=== PATIENT | male | born 1980 | race Caucasian/White ===

== ENCOUNTER 2016-07-29 09:19 | Emergency (ER) | payer BC ==
[~2016-07-29] VITALS: Ht 167.6 cm; Wt 84.0 kg
[~2016-07-29 09:19] MED LIST: ALBUAER2 INH; ASPI325T45 PO; ATV/1 PO; MOME200A INH; OXYC-57 PO; SERT50TA PO
[2016-07-29 09:24] VITALS: TEMP 36.8; Ht 167.6 cm; Wt 84.0 kg
[2016-07-29] MEDS ORDERED: KETOROLAC TROMETHAMINE 30 MG/ML VIAL IV STA (09:49)
[2016-07-29] MEDS ORDERED: SODIUM CHLORIDE 0.9% 1000ML 1,000 ML IV STA (09:49)
[2016-07-29] MEDS ORDERED: ACET-1311 PO (09:55)
[2016-07-29] MEDS ORDERED: WLLSR/150 PO (09:55)
[2016-07-29] MEDS ORDERED: IBUP-1450 PO (09:55)
[2016-07-29] MEDS ORDERED: VNTHFA/IN INH (09:57)
[2016-07-29 10:26] LABS: HEMATOCRIT 40.8 % (42-52); MEAN CELL VOLUME 87.6 fL (80-100); MEAN CORPUSCULAR HEMOGLOBIN 31.8 pg (25-34); MEAN CORPUSCULAR HGB CONC 36.3 g/dl (32-36); MEAN PLATELET VOLUME 8.7 fL (7.4-10.4); PLATELET COUNT 266 K/uL (130-400); RED BLOOD COUNT 4.66 M/uL (4.7-6.1); WHITE BLOOD COUNT 8.97 K/uL (4.8-10.8)
[2016-07-29 10:41] LABS: ALT/SGPT 26 U/L (12-78); AST/SGOT 11 U/L (15-37); BLOOD UREA NITROGEN 10 mg/dl (7-18); BUN/CREATININE RATIO 9.8 (10-20); CALCIUM 8.6 mg/dl (8.5-10.1); CARBON DIOXIDE 30 mmol/L (21-32); CHLORIDE 105 mmol/L (98-107); GLUCOSE 99 mg/dl (70-99); POTASSIUM 3.5 mmol/L (3.5-5.1); SODIUM 142 mmol/L (136-145)
[2016-07-29 10:46] LABS: ALKALINE PHOSPHATASE 122 U/L (45-117)
--- NOTE | 2016-07-29 11:11 | EMERGENCY ROOM VISIT NOTE ---
History Report prepared by Nenita: Susi Mccartney Under the Supervision of: Serjio SarmientoO. First contact with patient: 09:36 Chief Complaint: ILLNESS Stated Complaint: LOW FEVER, N, BLISTERS AROUND/IN MOUTH,FACIAL PAIN History of Present Illness The patient is a 36 year old male who presents to the Emergency Room with complaints of a persistent illness that began prior to arrival. He currently rates his discomfort as a 6/10 in severity. The patient states that he recently in [place] and shaved while there. He states that Friday he woke up with aches and a fever. The patient additionally noted left neck lymphadenopathy. He states that he noticed bumps to his upper lip and swelling to his lip. The patient sates that his had the same spots. He states that he went to his PCP's office and tested negative for flu and strep. The patient stats that he was told he had Impetigo and was given cream. Today the patient notes increased swelling, weakness, pain in his chest, coughing, and a decrease in appetite. He denies any sinus pressure. The patient notes a history of asthma. Source of History: patient Onset: prior to arrival Position: other (global) Symptom Intensity: 6/10 Quality: other (illness) Timing: other (persistent) Associated Symptoms: + chest pain, + cough, + fevers, + lymphadenopathy, + weakness Note: Associated Symptoms: body aches, swelling to lip, decrease in appetite. Review of Systems See HPI for pertinent positives & negatives. A total of 10 systems reviewed and were otherwise negative. Past Medical & Surgical Medical Problems: (1) Acute bronchitis (2) Asthma (3) Kidney stone Family History Kidney stones Social History Smoking Status: Never Smoker Alcohol Use: occasionally Drug Use: none Marital Status: Housing Status: lives with family Occupation Status: employed Current/Historical Medications Scheduled Acetaminophen (Tylenol), 650 MG PO Q4 Albuterol Hfa (Ventolin Hfa), 2-4 PUFFS INH Q6H Amoxicillin & Pot Clavulanate (Augmentin 875-125 mg), 875 MG PO BID Bupropion Hcl (Wellbutrin Sr), 150 MG PO QPM Mometasone Furoate-Formoterol (Dulera 200/5 Mcg), 2 PUFFS INH QAM Ondasetron Odt (Zofran Odt), 4 MG SL Q6H Scheduled PRN Ibuprofen (Motrin), 600 MG PO Q6H PRN for Pain Lorazepam (Ativan), 0.5 TAB PO DAILY PRN for Anxiety Allergies Coded Allergies: Animal Dander (Verified Allergy, Severe, ASTHMA, 07/29/16) Dust (Verified Allergy, Severe, ASTHMA, 07/29/16) Molds and Smuts (Verified Allergy, Severe, ASTHMA, 07/29/16) POLLEN (Verified Allergy, Severe, ASTHMA, 07/29/16) NO KNOWN DRUG ALLERGIES (Verified Allergy, Unknown, ., 03/28/16) Physical Exam Vital Signs Date Time Temp Pulse Resp B/P Pulse Ox O2 Delivery O2 Flow Rate FiO2 07/29/16 13:02 95 18 151/97 99 07/29/16 12:01 97 18 147/93 98 Room Air 07/29/16 10:26 96 18 155/102 99 Room Air 07/29/16 09:24 36.8 109 20 141/89 97 Room Air Physical Exam GENERAL: Patient is awake, alert, and in no acute distress. Patient is resting comfortably and showing no signs of anxiety EYES: The conjunctivae are clear. The pupils are round and reactive. EARS, NOSE, MOUTH AND THROAT: Mucous membranes are moist. Ulcerations on upper lip with swelling of upper lip. Crusted and bilateral on upper lip. NECK: Anterior cervical adenopathy noted on left greater than right. range of motion appears intact. RESPIRATORY: Normal respiratory effort is noted there is no evidence of wheezing rhonchi or rales CARDIOVASCULAR: Regular rate and rhythm noted there no murmurs rubs or gallops normal S1 normal S2 GASTROINTESTINAL: The abdomen is soft. Bowel sounds are present in all quadrants. Abdomen is nontender MUSCULOSKELETAL/EXTREMITIES: There is no evidence of gross deformity full range of motion is noted in the hips and shoulders SKIN: There is no obvious evidence of any rash. There are no petechiae, pallor or cyanosis noted. NEUROLOGIC: Patient is awake alert and oriented x3 strength is symmetric patellar reflexes are 2+ bilaterally Medical Decision & Procedures ER Provider Diagnostic Interpretation: Radiology results as stated below per my review and radiologist interpretation: SINUSES MIN 3 VIEWS ROUTINE CLINICAL HISTORY: sinus pain pain COMPARISON STUDY: None FINDINGS: All major sinuses are clear. No significant mucosal thickening. All osseous structures are intact. IMPRESSION: Negative study Electronically signed by: Dave Mahan M.D. 07/29/2016 11:13 AM Dictated Date/Time: 07/29/2016 11:12 AM CHEST 2 VIEWS ROUTINE CLINICAL HISTORY: CP dyspnea COMPARISON STUDY: 03/07/2009 FINDINGS: The bones soft tissues and hemidiaphragms are normal. The cardiomediastinal silhouette is normal. The lungs are clear. The pulmonary vasculature is normal. IMPRESSION: Negative chest. Electronically signed by: Dave Mahan M.D. 07/29/2016 11:10 AM Dictated Date/Time: 07/29/2016 11:10 AM Laboratory Results 07/29/16 10:08 Red Blood Count 4.66, Mean Corpuscular Volume 87.6, Mean Corpuscular Hemoglobin 31.8, Mean Corpuscular Hemoglobin Concent 36.3, Mean Platelet Volume 8.7 07/29/16 10:08 Test 07/29/16 10:08 07/29/16 12:03 White Blood Count 8.97 K/uL (4.8-10.8) Red Blood Count 4.66 M/uL (4.7-6.1) Hemoglobin 14.8 g/dL (14.0-18.0) Hematocrit 40.8 % (42-52) Mean Corpuscular Volume 87.6 fL (80-100) Mean Corpuscular Hemoglobin 31.8 pg (25-34) Mean Corpuscular Hemoglobin Concent 36.3 g/dl (32-36) Platelet Count 266 K/uL (130-400) Mean Platelet Volume 8.7 fL (7.4-10.4) RDW Standard Deviation 41.4 fL (36.4-46.3) RDW Coefficient of Variation 12.9 % (11.5-14.5) Neutrophils % (Manual) 63.5 % Lymphocytes % (Manual) 25.2 % Monocytes % (Manual) 10.4 % Basophils % (Manual) 0.9 % (0-2) Neutrophils # (Manual) 5.70 K/uL (1.4-6.5) Total Absolute Neutrophils 5.70 K/uL (1.4-6.5) Lymphocytes # (Manual) 2.26 K/uL (1.2-3.4) Total Absolute Lymphocytes 2.26 K/uL (1.2-3.4) Monocytes # (Manual) 0.93 K/uL (0.11-0.59) Basophils # (Manual) 0.08 K/uL (0-0.2) Red Blood Cell Morphology Unremarkable Anion Gap 7.0 mmol/L (3-11) Est Creatinine Clear Calc Drug Dose 101.8 ml/min Estimated GFR () 110.2 Estimated GFR (Non- 95.1 BUN/Creatinine Ratio 9.8 (10-20) Calcium Level 8.6 mg/dl (8.5-10.1) Total Bilirubin 0.3 mg/dl (0.2-1) Direct Bilirubin < 0.1 mg/dl (0-0.2) Aspartate Amino Transf (AST/SGOT) 11 U/L (15-37) Alanine Aminotransferase (ALT/SGPT) 26 U/L (12-78) Alkaline Phosphatase 122 U/L (45-117) Troponin I < 0.015 ng/ml (0-0.045) Total Protein 7.2 gm/dl (6.4-8.2) Albumin 3.5 gm/dl (3.4-5.0) Lipase 76 U/L (73-393) Monoscreen NEG (NEG) Urine Color YELLOW Urine Appearance CLEAR (CLEAR) Urine pH 7.0 (4.5-7.5) Urine Specific [place] 1.009 (1.000-1.030) Urine Protein NEG (NEG) Urine Glucose (UA) NEG (NEG) Urine Ketones NEG (NEG) Urine Occult Blood NEG (NEG) Urine Nitrite NEG (NEG) Urine Bilirubin NEG (NEG) Urine Urobilinogen NEG (NEG) Urine Leukocyte Esterase NEG (NEG) Laboratory results per my review. Medications Administered Medications (Trade) Dose Ordered Sig/Ry Route Start Time Stop Time Status Last Admin Dose Admin Ketorolac Tromethamine 30 mg 30 mg NOW STAT IV 07/29/16 09:49 07/29/16 09:52 DC 07/29/16 10:23 30 MG Sodium Chloride (Nss 1000ml) 1,000 ml @ 999 mls/hr Q1H1M STAT IV 07/29/16 09:49 07/29/16 10:49 DC 07/29/16 09:49 999 MLS/HR ECG Indication: other (illness) Rate (beats per minute): 98 Rhythm: normal sinus Findings: no ectopy, other (no acute ST segment abnormalities) Comparison ECG Date: 02/2009 Change: no significant change ED Course 0941: The patient was evaluated in room B5. A complete history and physical examination were performed. 0949: Ordered Sodium Chloride 1000 ml @ 999 mls/hr IV, Toradol Inj 30 mg IV. 1239: I reevaluated the patient and he is resting comfortably. I discussed the exam findings with him and I discussed the treatment plan. He verbalized complete understanding and agreement. He is ready to go home. Medical Decision Differential diagnosis: Etiologies such as contact dermatitis, viral exanthem, urticaria, allergic reaction, Painting-Giovani syndrome, toxic epidermal necrolysis, erythema multiforme, cellulitis, scabies, HSV, varicella, zoster, eczema, staph scalded skin syndrome, fungal infection, as well as others were entertained. Nursing notes reviewed. The patient is a 36-year-old male who presented to the emergency department for an evaluation of rash and febrile illness. The patient described multiple complaints such as facial pain sinus congestion neck pain and a rash above his lip. The rash did not have the appearance of shingles. His primary care provider felt that this was consistent with impetigo. It does appear to have some findings consistent with impetigo such as crusting but it is difficult to completely evaluate secondary to the patient's facial hair. The patient did not have meningismus. The patient was treated with IV fluids and IV pain medication in the emergency department. I discussed the patient's laboratory and radiographic studies with him. I tried to reassure him that this was likely an infection that would respond well to oral antibiotics. He was still very concerned about his overall condition. I encouraged him to try and continue taking Motrin and Tylenol for pain. He was also encouraged to continue using the topical antibiotic ointment. He was also encouraged to continue using all other medications as prescribed. He was also encouraged to follow-up with his primary care physician soon as possible but return to the emergency Department immediately if symptoms change worsen or if the need arises. Impression Primary Impression: Impetigo Additional Impression: Headache Scribe Attestation The scribe's documentation has been prepared under my direction and personally reviewed by me in its entirety. I confirm that the note above accurately reflects all work, treatment, procedures, and medical decision making performed by me. Departure Information Dispostion Home / Self-Care Prescriptions Amoxicillin & Pot Clavulanate (Augmentin 875-125 mg) 1 Tab Tab 875 MG PO BID for 7 Days, #14 TAB Prov: Chuck Montaño, 07/29/16 Referrals Robin Harris D.O.[facility] (PCP) Forms HOME CARE DOCUMENTATION FORM, IMPORTANT VISIT INFORMATION, WORK / SCHOOL INSTRUCTIONS, Work Instructions Patient Instructions [facility] Additional Instructions Call your primary care physician to schedule a follow-up appointment. Continue all medications as prescribed. Problem Qualifiers Additional Impression: Headache Headache type: unspecified Headache chronicity pattern: acute headache Intractability: not intractable Qualified Codes: R51 - Headache
--- NOTE | 2016-07-29 11:14 | DIAGNOSTIC IMAGING REPORT ---
SINUSES MIN 3 VIEWS ROUTINE CLINICAL HISTORY: sinus pain pain COMPARISON STUDY: None FINDINGS: All major sinuses are clear. No significant mucosal thickening. All osseous structures are intact. IMPRESSION: Negative study Electronically signed by: Dave Mahan M.D. 07/29/2016 11:13 AM Dictated Date/Time: 07/29/2016 11:12 AM
[2016-07-29 12:03] LABS: BASO ABS # 0.08 K/uL (0-0.2); BASOPHIL % 0.9 % (0-2); COMPLETE YES; LYMPH ABS # 2.26 K/uL (1.2-3.4); LYMPHOCYTE % 25.2 %; NEUTROPHILS % 63.5 %
[2016-07-29 12:30] LABS: URINE APPEARANCE CLEAR (CLEAR); URINE BILIRUBIN NEG (NEG); URINE COLOR YELLOW; URINE NITRITE NEG (NEG); URINE SPECIFIC GRAVITY 1.009 (1.000-1.030); UROBILINOGEN NEG (NEG)
[2016-07-29 12:35] LABS: MANUAL MICROSCOPIC REQUIRED? NO; REVIEW REQ? NO
[2016-07-29] MEDS ORDERED: AMOX875T PO (12:39)
[2016-07-29 13:02] VITALS: BP 151/97; PULSE 95; O2SAT 99
[2016-07-29] MEDS ORDERED: ONDA4TAB10 SL (22:33)
== END 2016-07-29 13:15 | disposition home or self-care (01) ==
LOC: C.EDB 09:22
DX: L01.00 Impetigo, unspecified (principal); R51 Headache; J45.909 Unspecified asthma, uncomplicated; Z87.442 Personal history of urinary calculi; Z84.1 Family history of disorders of kidney and ureter; Z79.899 Other long term (current) drug therapy

== ENCOUNTER 2016-07-29 18:22 | Emergency (ER) | payer BC ==
[~2016-07-29 18:22] MED LIST changes: +ACET-1311 PO; +AMOX875T PO; +IBUP-1450 PO; +VNTHFA/IN INH; +WLLSR/150 PO
[2016-07-29 18:58] VITALS: TEMP 37.3; Ht 177.8 cm
[2016-07-29] MEDS ORDERED: SODIUM CHLORIDE 0.9% 1000ML 1,000 ML IV ONE (19:26)
[2016-07-29] MEDS ORDERED: ONDANSETRON 8 MG/54 ML D5W IV STA (19:33)
[2016-07-29] MEDS ORDERED: KETOROLAC TROMETHAMINE 30 MG/ML VIAL IV STA (19:33)
--- NOTE | 2016-07-29 19:55 | EMERGENCY ROOM VISIT NOTE ---
History Report prepared by Nenita: Ciara Menezes Under the Supervision of: Dr. Roldan Osborne M.D. First contact with patient: 19:11 Chief Complaint: NAUSEA Stated Complaint: NAUSEA,FEVER,REVISIT Nursing Triage Summary: Seen here in ED this am for swollen glands and impentego. Received antibiotic. Back to ED for increased fever, nauea and vomiting. Took augmentin and tylenol around 1330 per visitor. Reports dry heaves and fever since . Been on three different antidepressants in the past 6 months. Hasn't taken any antidepressants in the last 3 days. Instructed to come to ED by Dr. Harris. History of Present Illness The patient is a 36 year old male who presents to the Emergency Room with complaints of persistent nausea that started 4 days ago. The patient's provided most of the history because the patient did not feel well enough. She states that the patient began to experience generalized body aches and generalized shaking 5 days ago. Since then, the generalized body aches have persistent and he developed an intermittent fever 4 days ago with nausea and drying heaving. The patient has been unable to vomit, but becomes nauseous after eating anything. The patient has not eaten much since he developed the dry heaving. He is also experiencing lymphadenopathy in his neck and complains of facial and throat pain. He is also experiencing a headache and generalized weakness. He denies any neck pain. Additionally, he is experiencing abdominal pain and back pain, which he thinks is secondary to the dry heaving. The patient saw his PCP 3 days ago for his symptoms and they diagnosed him with impetigo and a virus. The patient's symptoms worsened over the weekend and he developed chest pain last night. She tried to call the patient's PCP today, but they did not have any openings. The patient came into the ED this morning with similar symptoms. An EKG, blood work, and x-rays were all unremarkable. The patient was discharged home with impetigo as the diagnosis and started on Augmentin. The patient was nauseous upon leaving the hospital and his dry heaving became constant as the day continued. The patient's fever also continued to increase even after taking Tylenol, so she brought him back into the ED. The patient has never had mono and still has his spleen. She adds that the patient has been on 3 different antidepressants since January and with his current symptoms, he has not taken his antidepressant for the last 3 days. Additionally, the patient's states that the patient had a lump in the area of his right shoulder surgery that was done in March. Source of History: patient Onset: 4 days ago Quality: other (nausea) Timing: other (persistent) Associated Symptoms: + abdominal pain, + back pain, + chest pain, + fevers ( intermittent), + headache, + lymphadenopathy, + vomiting (dry heaving), + weakness (genearlized), No neck pain Note: facial pain, throat pain, generalized body aches, generalized shaking Review of Systems See HPI for pertinent positives & negatives. A total of 10 systems reviewed and were otherwise negative. Past Medical & Surgical Medical Problems: (1) Acute bronchitis (2) Asthma (3) Kidney stone Family History Kidney stones Social History Smoking Status: Never Smoker Alcohol Use: occasionally Drug Use: none Marital Status: Housing Status: lives with family Occupation Status: employed Current/Historical Medications Scheduled Acetaminophen (Tylenol), 650 MG PO Q4 Albuterol Hfa (Ventolin Hfa), 2-4 PUFFS INH Q6H Amoxicillin & Pot Clavulanate (Augmentin 875-125 mg), 875 MG PO BID Bupropion Hcl (Wellbutrin Sr), 150 MG PO QPM Mometasone Furoate-Formoterol (Dulera 200/5 Mcg), 2 PUFFS INH QAM Ondasetron Odt (Zofran Odt), 4 MG SL Q6H Scheduled PRN Ibuprofen (Motrin), 600 MG PO Q6H PRN for Pain Lorazepam (Ativan), 0.5 TAB PO DAILY PRN for Anxiety Allergies Coded Allergies: Animal Dander (Verified Allergy, Severe, ASTHMA, 07/29/16) Dust (Verified Allergy, Severe, ASTHMA, 07/29/16) Molds and Smuts (Verified Allergy, Severe, ASTHMA, 07/29/16) POLLEN (Verified Allergy, Severe, ASTHMA, 07/29/16) NO KNOWN DRUG ALLERGIES (Verified Allergy, Unknown, ., 03/28/16) Physical Exam Vital Signs Date Time Temp Pulse Resp B/P Pulse Ox O2 Delivery O2 Flow Rate FiO2 07/29/16 22:54 87 18 145/86 96 07/29/16 21:06 87 3/13/17 21:01 97 Room Air 07/29/16 21:01 92 18 143/86 96 Room Air 07/29/16 18:58 37.3 103 16 148/84 97 Room Air Physical Exam GENERAL: Patient is a healthy-appearing well-nourished male. HEAD: Normocephalic atraumatic EYES: Ocular movements intact pupils equal and react to light OROPHARYNX mucous membranes are moist no exudates present no erythema or edema present NECK: Supple no nuchal rigidity no signs of meningitis or encephalitis CHEST: Good equal expansion LUNGS: Clear and equal to auscultation CARDIAC: Normal S1 and S2 ABDOMEN: Soft nontender no guarding BACK: No CVA tenderness EXTREMITIES: No pain upon palpation normal muscle strength in all groups no clubbing cyanosis or edema NEURO: Patient is following commands is answering questions appropriately. Alert and oriented x3 Cranial Nerves 2-12 grossly intact Medical Decision & Procedures ER Provider Diagnostic Interpretation: Radiology results as stated below per my review and radiologist interpretation: CHEST ONE VIEW PORTABLE IMPRESSION: No acute cardiopulmonary findings. Electronically signed by: En Ron M.D. 07/29/2016 7:57 PM Dictated Date/Time: 07/29/2016 7:[address] OF THE HEAD WITH AND WITHOUT CONTRAST IMPRESSION: 1. No acute intracranial findings. 2. No evidence of acute dural sinus thrombosis. Irregular, somewhat diminutive superior sagittal sinus is likely within normal limits. Chronic thrombosis could appear similar although is considered less likely. Electronically signed by: En Ron M.D. 07/29/2016 9:00 PM Dictated Date/Time: 07/29/2016 8:[address] WITHOUT CONTRAST IMPRESSION: 1. Minimal mucosal thickening of the sinuses. No evidence of acute sinusitis. Patent major drainage pathways. 2. Mild rightward deviation of the nasal septum. 3. Dee Dee bullosa of the bilateral middle turbinates. Electronically signed by: En Ron M.D. 07/29/2016 8:50 PM Dictated Date/Time: 07/29/2016 8:45 PM Laboratory Results 07/29/16 19:48 Red Blood Count 4.60, Mean Corpuscular Volume 89.1, Mean Corpuscular Hemoglobin 32.2, Mean Corpuscular Hemoglobin Concent 36.1, Mean Platelet Volume 8.9, Neutrophils (%) (Auto) 67.6, Lymphocytes (%) (Auto) 21.3, Monocytes (%) (Auto) 10.0, Eosinophils (%) (Auto) 0.1, Basophils (%) (Auto) 0.4, Neutrophils # (Auto ) 7.20, Lymphocytes # (Auto) 2.27, Monocytes # (Auto) 1.06, Eosinophils # (Auto ) 0.01, Basophils # (Auto) 0.04 07/29/16 19:48 Test 07/29/16 19:48 07/29/16 20:00 07/29/16 20:04 07/29/16 20:20 White Blood Count 10.64 K/uL (4.8-10.8) Red Blood Count 4.60 M/uL (4.7-6.1) Hemoglobin 14.8 g/dL (14.0-18.0) Hematocrit 41.0 % (42-52) Mean Corpuscular Volume 89.1 fL (80-100) Mean Corpuscular Hemoglobin 32.2 pg (25-34) Mean Corpuscular Hemoglobin Concent 36.1 g/dl (32-36) Platelet Count 300 K/uL (130-400) Mean Platelet Volume 8.9 fL (7.4-10.4) Neutrophils (%) (Auto) 67.6 % Lymphocytes (%) (Auto) 21.3 % Monocytes (%) (Auto) 10.0 % Eosinophils (%) (Auto) 0.1 % Basophils (%) (Auto) 0.4 % Neutrophils # (Auto) 7.20 K/uL (1.4-6.5) Lymphocytes # (Auto) 2.27 K/uL (1.2-3.4) Monocytes # (Auto) 1.06 K/uL (0.11-0.59) Eosinophils # (Auto) 0.01 K/uL (0-0.5) Basophils # (Auto) 0.04 K/uL (0-0.2) RDW Standard Deviation 41.9 fL (36.4-46.3) RDW Coefficient of Variation 13.0 % (11.5-14.5) Immature Granulocyte % (Auto) 0.6 % Immature Granulocyte # (Auto) 0.06 K/uL (0.00-0.02) Prothrombin Time 10.6 SECONDS (9.0-12.0) Prothromb Time International Ratio 1.0 (0.9-1.1) Activated Partial Thromboplast Time 27.1 SECONDS (21.0-31.0) Partial Thromboplastin Ratio 1.0 Estimated GFR () 117.2 Estimated GFR (Non- 101.1 BUN/Creatinine Ratio 7.8 (10-20) Calcium Level 8.8 mg/dl (8.5-10.1) Total Bilirubin 0.3 mg/dl (0.2-1) Aspartate Amino Transf (AST/SGOT) 13 U/L (15-37) Alanine Aminotransferase (ALT/SGPT) 27 U/L (12-78) Alkaline Phosphatase 134 U/L (45-117) Total Protein 7.6 gm/dl (6.4-8.2) Albumin 3.5 gm/dl (3.4-5.0) Globulin 4.1 gm/dl (2.5-4.0) Albumin/Globulin Ratio 0.9 (0.9-2) Lyme Disease IgG Antibody NEG (NEG) Lyme Disease IgM Antibody NEG (NEG) Monoscreen NEG (NEG) Bedside Lactic Acid Venous 1.14 mmol/L (0.90-1.70) Bedside Hemoglobin 14.3 g/dl (14.0-18.0) Bedside Hematocrit 42 % (42-52) Bedside Sodium 140 mEq/L (135-144) Bedside Potassium 3.9 mEq/L (3.3-5.0) Bedside Chloride 103 mEq/L (101-112) Bedside Total CO2 26 mEq/l (24-31) Anion Gap 16.0 mmol/L (16-25) Bedside Blood Urea Nitrogen 7 mg/dl (7-18) Bedside Creatinine 0.8 mg/dl (0.6-1.3) Bedside Glucose (other) 113 mg/dl (70-99) Bedside Ionized Calcium (William) 1.12 mmol/l (1.12-1.32) Influenza Type A (RT-PCR) Neg for Influ A (NEG) Influenza Type A Antigen Neg for Influ A (NEG) Influenza Type B Antigen Neg for Influ B (NEG) Influenza Type B (RT-PCR) Neg for Influ B (NEG) Test 07/29/16 20:55 Urine Color YELLOW Urine Appearance CLEAR (CLEAR) Urine pH 7.0 (4.5-7.5) Urine Specific Driver 1.024 (1.000-1.030) Urine Protein NEG (NEG) Urine Glucose (UA) NEG (NEG) Urine Ketones NEG (NEG) Urine Occult Blood NEG (NEG) Urine Nitrite NEG (NEG) Urine Bilirubin NEG (NEG) Urine Urobilinogen NEG (NEG) Urine Leukocyte Esterase NEG (NEG) Urine WBC (Auto) 1-5 /hpf (0-5) Urine RBC (Auto) 0-4 /hpf (0-4) Urine Hyaline Casts (Auto) 1-5 /lpf (0-5) Urine Epithelial Cells (Auto) 5-10 /lpf (0-5) Urine Bacteria (Auto) NEG (NEG) Labs reviewed by ED physician. Medications Administered Medications (Trade) Dose Ordered Sig/Ry Route Start Time Stop Time Status Last Admin Dose Admin Sodium Chloride (Nss 1000ml) 1,000 ml @ 999 mls/hr Q1H1M ONCE IV 07/29/16 19:26 07/29/16 20:26 DC 07/29/16 20:24 999 MLS/HR Ketorolac Tromethamine (Toradol Inj) 30 mg NOW STAT IV 07/29/16 19:33 07/29/16 19:35 DC 07/29/16 20:24 30 MG Ondansetron HCl (Zofran 8mg Iv) 8 mg NOW STAT IV 07/29/16 19:33 07/29/16 19:35 DC 07/29/16 20:24 8 MG Acetaminophen (Tylenol Tab) 1,000 mg NOW STAT PO 07/29/16 20:43 07/29/16 20:45 DC 07/29/16 22:09 1,000 MG Metoclopramide HCl (Reglan Inj) 10 mg NOW STAT IV 07/29/16 20:43 07/29/16 20:45 DC 07/29/16 21:31 10 MG Ondansetron HCl (ZOFRAN ODT 4MG Home Pack) 1 homepack UD ONCE PO 07/29/16 22:30 07/29/16 22:31 DC 07/29/16 22:54 1 HOMEPACK ECG Indication: nausea Rate (beats per minute): 97 Rhythm: normal sinus Findings: no acute ischemic change, no ectopy ED Course 1914: Past medical records reviewed. The patient was evaluated in room B11. A complete history and physical examination was performed. 1925: Ordered Sodium Chloride 1000 ml @ 999 mls/hr IV 1932: Ordered Ondansetron HCl 8 mg IV, Toradol Inj 30 mg IV 2042: Ordered Reglan Inj 10 mg IV, Tylenol Tab 1000 mg PO 2229: Upon reexamination the patient is doing better. I discussed results and treatment plan with the patient. He verbalizes agreement and understanding. The patient is ready for discharge. Ordered Ondansetron HCl 1 homepack PO Medical Decision Differential diagnosis: Etiologies such as viral syndrome, otitis, pharyngitis, pneumonia, influenza, meningitis, urinary tract infection, sepsis, bacteremia, as well as others were entertained. This is a 36-year-old male who presents emergency department who presents back to the emergency department after being discharged earlier today. The patient has been complaining of facial pain along with muscle aches and pains. He has not been able keep his Augmentin down since he was discharged earlier today. He was placed on Augmentin for a lesion above his lip. As this is in the danger zone I sent the patient for a CAT scan of the maxillofacial area as well as CT of the head. Both of these were interpreted as normal. In addition the patient does not have an elevation in his white blood count, he has a normal renal profile. Patient was given normal saline bolus as well as Toradol in the emergency department repeat examination revealed much improvement the patient's symptoms. He has no evidence of meningitis or encephalitis on examination. I do believe he is well enough to be discharged home. I stressed Tylenol thousand grams every 6 hours along with ibuprofen every 6 hours. He will be given Zofran for nausea. Patient was in agreement with the treatment plan. Impression Primary Impression: URI (upper respiratory infection) Scribe Attestation The scribe's documentation has been prepared under my direction and personally reviewed by me in its entirety. I confirm that the note above accurately reflects all work, treatment, procedures, and medical decision making performed by me. Departure Information Dispostion Home / Self-Care Prescriptions Ondasetron Odt (ZOFRAN ODT) 4 Mg Tab 4 MG SL Q6H for Nausea, #6 TAB Prov: Roldan Osborne MD 07/29/16 Referrals Robin Harris D.O.[facility]. (PCP) Forms HOME CARE DOCUMENTATION FORM, IMPORTANT VISIT INFORMATION Patient Instructions ED URI Viral, My [facility] Additional Instructions Take 1000 mg TYlenol every 6 hours Take 600 mg Ibuprofen every 6 hours Increase fluids next 48 hours You have been examined and treated today on an emergency basis only. This is not a substitute for, or an effort to provide, complete comprehensive medical care. It is impossible to recognize and treat all injuries or illnesses in a single emergency department visit. It is therefore important that you follow up closely with Dr Harris. Call as soon as possible for an appointment. Thank you for your time and consideration. I look forward to speaking with you again soon. Please don't hesitate to call us if you have any questions. Problem Qualifiers Primary Impression: URI (upper respiratory infection) URI type: unspecified URI Qualified Codes: J06.9 - Acute upper respiratory infection, unspecified
--- NOTE | 2016-07-29 19:59 | DIAGNOSTIC IMAGING REPORT ---
CHEST ONE VIEW PORTABLE CLINICAL HISTORY: Sepsis. Nausea and fever. COMPARISON STUDY: Chest radiograph July 29, 2016 and October 29, 2009. FINDINGS: Lung volumes are normal. There is no pneumothorax or pleural effusion. Cardiac size is normal. Mediastinal contours are normal. There is no evidence of pulmonary edema. The appearance of the chest is unchanged. IMPRESSION: No acute cardiopulmonary findings. Electronically signed by: En Ron M.D. 07/29/2016 7:57 PM Dictated Date/Time: 07/29/2016 7:57 PM
[2016-07-29] MEDS ORDERED: OPTIRAY 320 IV PRN (20:00)
[2016-07-29 20:06] LABS: BASO % 0.4 %; BASO ABS # 0.04 K/uL (0-0.2); COMPLETE YES; EOS % 0.1 %; IG% 0.6 %; LYMPH % 21.3 %; LYMPH ABS # 2.27 K/uL (1.2-3.4); MEAN CELL VOLUME 89.1 fL (80-100); MEAN CORPUSCULAR HEMOGLOBIN 32.2 pg (25-34); MEAN CORPUSCULAR HGB CONC 36.1 g/dl (32-36); MEAN PLATELET VOLUME 8.9 fL (7.4-10.4); NEUT % 67.6 %; PLATELET COUNT 300 K/uL (130-400); WHITE BLOOD COUNT 10.64 K/uL (4.8-10.8)
[2016-07-29 20:17] LABS: ISTAT CREATININE 0.8 mg/dl (0.6-1.3); ISTAT HEMOGLOBIN 14.3 g/dl (14.0-18.0); ISTAT IONIZED CALCIUM 1.12 mmol/l (1.12-1.32)
[2016-07-29 20:23] LABS: PROTHROMBIN TIME (PATIENT) 10.6 SECONDS (9.0-12.0)
[2016-07-29 20:24] LABS: ALT/SGPT 27 U/L (12-78); AST/SGOT 13 U/L (15-37); BLOOD UREA NITROGEN 7 mg/dl (7-18); BUN/CREATININE RATIO 7.8 (10-20); CALCIUM 8.8 mg/dl (8.5-10.1); CARBON DIOXIDE 28 mmol/L (21-32); CHLORIDE 105 mmol/L (98-107); CREATININE 0.95 mg/dl (0.60-1.40); GLUCOSE 110 mg/dl (70-99); POTASSIUM 3.9 mmol/L (3.5-5.1); SODIUM 141 mmol/L (136-145)
[2016-07-29 20:27] LABS: ALB/GLOB RATIO 0.9 (0.9-2); ALKALINE PHOSPHATASE 134 U/L (45-117)
[2016-07-29] MEDS ORDERED: ACETAMINOPHEN 500 MG TAB PO STA (20:43)
[2016-07-29] MEDS ORDERED: METOCLOPRAMIDE HCL INJ 5 MG/ML 2 ML VIAL IV STA (20:43)
--- NOTE | 2016-07-29 20:52 | DIAGNOSTIC IMAGING REPORT ---
SINUS CT WITHOUT CONTRAST CLINICAL HISTORY: Sinus pressure. Fever and headache. COMPARISON STUDY: Sinus radiographs performed earlier today. Technique: Helical axial images of the sinuses were obtained without IV contrast. Coronal reformats were viewed. FINDINGS: The head CT will be reported separately. The mastoid air cells are clear. There is no fluid within the middle ears. Ossicles are intact. There are damian bullosa of the bilateral middle turbinates. There is mild mucosal thickening of the sinuses. Major drainage pathways are patent. There is mild rightward deviation of the nasal septum. There is no bony destruction. No mass is identified within the nasal cavity or the sinuses. The cribriform plate is intact. No air-fluid levels are present. IMPRESSION: 1. Minimal mucosal thickening of the sinuses. No evidence of acute sinusitis. Patent major drainage pathways. 2. Mild rightward deviation of the nasal septum. 3. Damian bullosa of the bilateral middle turbinates. Electronically signed by: En Ron M.D. 07/29/2016 8:50 PM Dictated Date/Time: 07/29/2016 8:45 PM
[2016-07-29 21:01] VITALS: O2SAT 97
--- NOTE | 2016-07-29 21:01 | DIAGNOSTIC IMAGING REPORT ---
CT OF THE HEAD WITH AND WITHOUT CONTRAST CT DOSE: 1600.59 mGy.cm CLINICAL HISTORY: Headache. Fever. Evaluate for dural sinus thrombosis. TECHNIQUE: Unenhanced and venous phase imaging of the head was performed. Injection of 94 cc of Optiray 320 IV was uneventful. Sagittal and coronal reconstructions were viewed. COMPARISON STUDY: None. FINDINGS: No acute intracranial hemorrhage, midline shift or mass effect is present. Ventricular system is normal. The basilar cisterns are patent. There are no extra-axial collections. Wilkerson-white differentiation is maintained. There are no findings to suggest acute dural sinus thrombosis or acute territorial infarct. There is irregularity with narrowing of the superior sagittal sinus which is likely chronic. There is no evidence for acute thrombosis. The straight sinuses are patent. The bilateral transverse and sigmoid sinuses are patent as are visualized portions of the bilateral internal jugular veins. IMPRESSION: 1. No acute intracranial findings. 2. No evidence of acute dural sinus thrombosis. Irregular, somewhat diminutive superior sagittal sinus is likely within normal limits. Chronic thrombosis could appear similar although is considered less likely. Electronically signed by: En Ron M.D. 07/29/2016 9:00 PM Dictated Date/Time: 07/29/2016 8:52 PM
[2016-07-29 21:12] LABS: URINE APPEARANCE CLEAR (CLEAR); URINE BILIRUBIN NEG (NEG); URINE COLOR YELLOW; URINE NITRITE NEG (NEG); URINE SPECIFIC GRAVITY 1.024 (1.000-1.030); UROBILINOGEN NEG (NEG); ZZUR CULT IF INDIC CLEAN CATCH NO
[2016-07-29 21:19] LABS: MANUAL MICROSCOPIC REQUIRED? NO; REVIEW REQ? NO
[2016-07-29 21:20] LABS: LYME DISEASE AB IGG NEG (NEG)
[2016-07-29 21:26] LABS: LYME DISEASE AB IGM NEG (NEG)
[2016-07-29] MEDS ORDERED: ONDANSETRON HOME PACK 4MG OD TAB PO ONE (22:30)
[2016-07-29] MEDS ORDERED: ONDA4TAB10 SL (22:33)
[2016-07-29 22:43] LABS: INFLUENZA A PCR Neg for Influ A (NEG); INFLUENZA B PCR Neg for Influ B (NEG)
[2016-07-29 22:54] VITALS: BP 145/86; PULSE 87; O2SAT 96
[2016-08-01 13:23] LABS: EBV EARLY ANTIGEN AB <0.91 INDEX; EHRLICHIA CHAFF IGG AB <1:64 (<1:64); EHRLICHIA CHAFF IGM AB <1:20 (<1:20); EPSTEIN BARR VIR CAPSID IGG 3.43 INDEX
== END 2016-07-29 22:54 | disposition home or self-care (01) ==
LOC: C.EDB 18:23
DX: J06.9 Acute upper respiratory infection, unspecified (principal); J45.909 Unspecified asthma, uncomplicated; Z87.442 Personal history of urinary calculi; Z79.899 Other long term (current) drug therapy

== ENCOUNTER 2019-10-24 20:16 | Inpatient (IN) ==
[2019-10-24] MEDS ORDERED: ONDANSETRON INJ 2 MG/ML 2 ML VIAL IV STA (21:35)
[2019-10-24] MEDS ORDERED: KETOROLAC 30 MG/ML VIAL IV STA (21:35)
[2019-10-24] MEDS ORDERED: SODIUM CHLORIDE 0.9% 1000ML 1,000 ML IV SCH ×2 (21:45→23:00)
--- NOTE | 2019-10-24 21:47 | Emergency Department Note ---
History of Present Illness General Chief complaint: GI Assessment Stated complaint: 3 BROKEN RIBS, KIDNEY STONE, NAUSEA, ABD PAIN Time Seen by Provider: 10/24/19 21:27 History of Present Illness Maximum Pain Intensity: 7 This is a 39-year-old male presenting to the emergency department for evaluation of right-sided abdominal pain as well as left-sided chest wall pain. The patient has a recent history of falling from a roof 2 months ago with subsequent ankle fracture that did require surgical repair. The patient feels that he has been doing well in regards to his ankle. He evidently had a second unrelated injury at work where large piece of machinery stuck into his left side chest wall. He did follow with his primary care physician for this and was found to have left sixth and seventh rib fractures. The patient also evidently had a KUB for his abdominal discomfort and was concerned for a ureteral calculi, which she has had in the past. The patient now presents to the ER as he has had worsening pain in his belly as well as increased nausea making it difficult for him to take Vicodin at home. He did try a single dose of Zofran about 6 hours prior to arrival without significant improvement of pain. He has not had distinct fever and feels like he is eating and using the bathroom as normal. There is a family history of PE, but none for the patient. He has not had any recent travel history. He rates his current overall discomfort a 7/10. Home Medications Home Medications Medication Instructions Recorded Confirmed Type MOMETASONE FUROATE-FORMOTEROL 2 puff INHALATION QAM #0 01/28/16 10/24/19 History (DULERA 200/5 MCG) bupropion HCl [Wellbutrin SR] 200 mg PO QAM #0 tab 07/29/16 10/24/19 History albuterol sulfate [Proventil HFA] 1 - 2 inh INHALATION QID PRN 08/20/19 10/24/19 History chlordiazepoxide HCl 20 mg PO .ON HOLD 08/20/19 10/24/19 History duloxetine [Cymbalta] 30 mg PO HS 08/20/19 10/24/19 History duloxetine [Cymbalta] 60 mg PO QAM 08/20/19 10/24/19 History montelukast [Singulair] 10 mg PO HS 08/20/19 10/24/19 History prazosin [Minipress] 2 mg PO BID 08/20/19 10/24/19 History zolpidem [Ambien CR] 12.5 mg PO HS 08/20/19 10/24/19 History diclofenac sodium 75 mg PO BID #60 tab 08/23/19 10/24/19 Rx prazosin 4 mg PO HS 08/23/19 10/24/19 History acetaminophen [Tylenol Extra 1,000 mg PO Q6H PRN 10/24/19 10/24/19 History Strength] hydrocodone-acetaminophen [[place]] 1 tab PO Q6 PRN 10/24/19 10/24/19 History ibuprofen 200 - 800 mg PO Q6H PRN 10/24/19 10/24/19 History ondansetron 8 mg TRANSLINGUAL UD PRN 10/24/19 10/24/19 History zolpidem [Ambien] 5 mg PO HS 10/24/19 10/24/19 History Allergies Allergy/AdvReac Type Severity Reaction Status Date / Time animal dander Allergy Severe ASTHMA Verified 10/24/19 21:26 mold Allergy Severe ASTHMA Verified 10/24/19 21:26 pollen extracts Allergy Severe ASTHMA Verified 10/24/19 21:26 No Known Drug Allergies Allergy Unknown . Verified 10/24/19 21:26 Dust Allergy Severe ASTHMA Uncoded 10/24/19 21:26 Past Med/Surg History Medical History Anxiety R/T PTSD Asthma USES RESCUE INHALER 2 X A WEEK. CURRENTLY CONTROLLED, PER PATIENT. PATIENT STATES THEY HAVE HAD TO USE HIS INHALER OR INCREASE HIS OXYGEN NEED IN PACU IN THE PAST. INSTRUCTED HIM TO BRING INHALER DOS. Depression R/T PTSD GERD (gastroesophageal reflux disease) OCCASIONALLY - CONTROLLED Kidney stones S/P LITHOTRIPSY AND SUBSEQUENT CYSTOSCOPY Osteoarthritis GENERALIZED Post traumatic stress disorder Surgical History H/O shoulder surgery PINS PLACED IN RIGHT SHOULDER History of cystoscopy History of lithotripsy History of surgery on arm NAIL REMOVED FROM ARM Hx of tonsillectomy PONV (postoperative nausea and vomiting) X1 WITH SURGERY FROM NAIL REMOVED FROM ARM Social History Preferred Language: Beninese Communication Ability: Effective Trades Helper Required: No Beliefs That Will Affect Care: None Current Living Situation: Spouse and Family Feels Safe at Home: Yes Smoking Status: Never smoker Second Hand Exposure: No ; Hx Substance Use: No Review of Systems A total of 10 systems reviewed and were otherwise negative Physical Exam Vital Signs Vital Signs - 24 hr 10/24/19 20:18 10/24/19 22:19 10/24/19 22:31 Temperature 37.0 C Temperature Source Oral Pulse Rate 121 H 85 92 H Pulse Rate from SpO2 Sensor 88 80 Respiratory Rate 20 12 12 Respiratory Effort / Characteristics Non-Labored Respiratory Depth Normal Blood Pressure 178/101 H 176/114 H 182/112 H Blood Pressure Mean 126 138 138 Pulse Oximetry 99 97 98 Oxygen Delivery Method Room Air Room Air Room Air Sepsis Recent Fever Within 48 Hours No Sepsis Action Taken by Nursing No Action Required 10/24/19 23:01 10/24/19 23:31 10/24/19 23:55 Temperature Temperature Source Pulse Rate 99 H Pulse Rate from SpO2 Sensor 92 H 97 H 102 H Respiratory Rate 12 14 14 Respiratory Effort / Characteristics Respiratory Depth Blood Pressure 173/107 H 175/116 H 166/126 H Blood Pressure Mean 121 149 132 Pulse Oximetry 98 98 99 Oxygen Delivery Method Room Air Room Air Sepsis Recent Fever Within 48 Hours Sepsis Action Taken by Nursing 10/25/19 00:01 10/25/19 01:02 Temperature Temperature Source Pulse Rate Pulse Rate from SpO2 Sensor 92 H 101 H Respiratory Rate 16 16 Respiratory Effort / Characteristics Respiratory Depth Blood Pressure 175/108 H 167/102 H Blood Pressure Mean 134 106 Pulse Oximetry 97 96 Oxygen Delivery Method Room Air Room Air Sepsis Recent Fever Within 48 Hours Sepsis Action Taken by Nursing VITALS: Vitals are noted on the nurse's note and reviewed by myself. Vital signs with hypertension and tachycardia GENERAL: Well-developed, well-nourished, white male, who is in no acute distress and resting comfortably. Patient is cooperative with the examination. HEAD: Normocephalic atraumatic. EARS: External ear normal. External auditory canals clear, tympanic membranes pearly potts without erythema or effusion bilaterally. EYES: Pupils equal round and reactive to light and accommodation. Conjunctivae without injection, sclerae without icterus. Extraocular movements intact. NOSE: Patent, turbinates without inflammation or discharge. MOUTH: Mucous membranes moist. Tonsils are not enlarged. Pharynx without erythema, blood, or exudate. Uvula midline. Airway patent. NECK: Supple without nuchal rigidity. No lymphadenopathy. No thyromegaly. Cervical spine is nontender. HEART: Tachycardic rate with regular rhythm LUNGS: Clear to auscultation bilaterally without wheezes, rales or rhonchi. No retractions or accessory muscle use. ABDOMEN: Positive normal bowel sounds x 4. Soft, nontender, without masses or organomegaly. No guarding or rebound tenderness. MUSCULOSKELETAL: No muscle atrophy, erythema, or edema noted. Full range of motion in all extremities. NEURO: Patient was alert and oriented to person place and time. CN II through XII grossly intact. SKIN: The skin was without rashes, erythema, edema, or bruising. Capillary refill less than 2 seconds. Course Administered Medications Ioversol (Optiray 320 125ml) 120 ml IV ONCE PRN PRN Reason: Interaction Checking Stop: 10/28/19 23:09 Last Admin: 10/24/19 23:11 Dose: 120 ml Documented by: [id number] Discontinued Medications Sodium Chloride (Nss 1000ml) 1,000 mls @ 999 mls/hr IV .Q1H1M MANUEL Stop: 10/24/19 22:45 Last Infusion: 10/24/19 23:28 Dose: 0 mls/hr Documented by: [id number] Admin: 10/24/19 22:26 Dose: 999 mls/hr Documented by: [id number] Acetaminophen (Ofirmev) 1,000 mg in 100 mls @ 400 mls/hr IV NOW STA Stop: 10/24/19 23:02 Last Infusion: 10/24/19 23:24 Dose: 0 mls/hr Documented by: [id number] Admin: 10/24/19 22:53 Dose: 400 mls/hr Documented by: [id number] Sodium Chloride (Nss 1000ml) 1,000 mls @ 999 mls/hr IV .Q1H1M MANUEL Stop: 10/25/19 00:00 Last Infusion: 10/25/19 01:04 Dose: 0 mls/hr Documented by: [id number] Admin: 10/24/19 23:26 Dose: 999 mls/hr Documented by: [id number] Ketorolac Tromethamine (Toradol) 30 mg IV NOW STA Stop: 10/24/19 21:36 Last Admin: 10/24/19 22:27 Dose: 30 mg Documented by: [id number] Morphine Sulfate (Morphine Sulfate) 6 mg IV NOW STA Stop: 10/24/19 23:48 Last Admin: 10/24/19 23:52 Dose: 6 mg Documented by: [id number] Ondansetron HCl (Zofran) 4 mg IV NOW STA Stop: 10/24/19 21:36 Last Admin: 10/24/19 22:27 Dose: 4 mg Documented by: [id number] Medical Decision Making Differential Diagnosis Differential diagnosis: Etiologies such as cardiopulmonary etiology, PE, biliary colic, cholecystitis, hepatitis, pancreatitis, cardiac disease, pancreatitis, gastritis, peptic ulcer disease, appendicitis, cystitis, diverticulitis, mesenteric ischemia, inflammatory bowel disease, ileus, bowel obstruction, testicular/adnexal torsion, aortic pathology, shingles, as well as others were considered Laboratory Data Result diagrams: 10/24/19 22:03 10/24/19 23:01 Lab Results 10/24/19 10/24/19 10/24/19 Range/Units 22:03 22:03 23:01 WBC 10.30 (4.8-10.8) K/uL RBC 4.35 L (4.7-6.1) M/uL Hgb 14.4 (14.0-18.0) g/dL Hct 40.0 L (42-52) % MCV 92.0 (80-100) fL MCH 33.1 (25-34) pg MCHC 36.0 (32-36) g/dL RDW Std Deviation 44.4 (36.4-46.3) fL RDW Coeff of Will 13.3 (11.5-14.5) % Plt Count 364 (130-400) K/uL MPV 8.8 (7.4-10.4) fL Immature Gran % (Auto) 0.7 % Neut % (Auto) 71.0 % Lymph % (Auto) 20.8 % Banner % (Auto) 6.6 % Eos % (Auto) 0.6 % Baso % (Auto) 0.3 % Immature Gran # (Auto) 0.07 H (0.00-0.02) K/uL Neut # (Auto) 7.32 H (1.4-6.5) K/uL Lymph # (Auto) 2.14 (1.2-3.4) K/uL Banner # (Auto) 0.68 H (0.11-0.59) K/uL Eos # (Auto) 0.06 (0-0.5) K/uL Baso # (Auto) 0.03 (0-0.2) K/uL Sodium 133 L (136-145) mmol/L Potassium 4.5 (3.5-5.1) mmol/L Chloride 101 (98-107) mmol/L Carbon Dioxide 24 (21-32) mmol/L Anion Gap 8.0 (3-11) BUN 22 H (7-18) mg/dl Creatinine 1.52 H (0.6-1.4) mg/dl Est Cr Clr Drug Dosing 64.9 ml/min Est GFR ( Amer) 65.0 Est GFR (Non-Af Amer) 56.1 BUN/Creatinine Ratio 14.1 (10-20) Glucose 116 H (70-99) mg/dl Calcium 10.1 (8.5-10.1) mg/dl Total Bilirubin 0.6 (0.2-1) mg/dl AST 12 L (15-37) U/L ALT 40 (12-78) U/L Alkaline Phosphatase 149 H (45-117) U/L Troponin I < 0.015 (0-0.045) ng/ml Total Protein 8.0 (6.4-8.2) gm/dl Albumin 4.0 (3.4-5.0) gm/dl Globulin 4.0 (2.5-4.0) gm/dl Albumin/Globulin Ratio 1.0 (0.9-2) Lipase 43 L (73-393) U/L Urine Color Urine Appearance (Clear) Urine pH (4.5-7.5) Ur Specific Darby (1.000-1.030) Urine Protein (Negative) Urine Glucose (UA) (Negative) Urine Ketones (Negative) Urine Blood (Negative) Urine Nitrite (Negative) Urine Bilirubin (Negative) Urine Urobilinogen (Negative) Ur Leukocyte Esterase (Negative) Urine WBC (Auto) (0-5) /hpf Urine RBC (Auto) (0-4) /hpf U Hyaline Cast (Auto) (0-5) /lpf U Epithel Cells (Auto) (0-5) /lpf Urine Bacteria (Auto) (Negative) Urine Opiates Screen (Neg) Ur Methadone, Qual (Neg) Urine Barbiturates (Neg) Ur Phencyclidine (PCP) (Neg) U Amphetamin/Meth Scrn (Neg) MDMA (Ecstasy) Screen (Neg) U Benzodiazepines Scrn (Neg) Ur Cocaine Metabolite (Neg) U Marijuana (THC) Screen (Neg) 10/24/19 10/24/19 Range/Units 23:55 23:55 WBC (4.8-10.8) K/uL RBC (4.7-6.1) M/uL Hgb (14.0-18.0) g/dL Hct (42-52) % MCV (80-100) fL MCH (25-34) pg MCHC (32-36) g/dL RDW Std Deviation (36.4-46.3) fL RDW Coeff of Will (11.5-14.5) % Plt Count (130-400) K/uL MPV (7.4-10.4) fL Immature Gran % (Auto) % Neut % (Auto) % Lymph % (Auto) % Banner % (Auto) % Eos % (Auto) % Baso % (Auto) % Immature Gran # (Auto) (0.00-0.02) K/uL Neut # (Auto) (1.4-6.5) K/uL Lymph # (Auto) (1.2-3.4) K/uL Banner # (Auto) (0.11-0.59) K/uL Eos # (Auto) (0-0.5) K/uL Baso # (Auto) (0-0.2) K/uL Sodium (136-145) mmol/L Potassium (3.5-5.1) mmol/L Chloride (98-107) mmol/L Carbon Dioxide (21-32) mmol/L Anion Gap (3-11) BUN (7-18) mg/dl Creatinine (0.6-1.4) mg/dl Est Cr Clr Drug Dosing ml/min Est GFR ( Amer) Est GFR (Non-Af Amer) BUN/Creatinine Ratio (10-20) Glucose (70-99) mg/dl Calcium (8.5-10.1) mg/dl Total Bilirubin (0.2-1) mg/dl AST (15-37) U/L ALT (12-78) U/L Alkaline Phosphatase (45-117) U/L Troponin I (0-0.045) ng/ml Total Protein (6.4-8.2) gm/dl Albumin (3.4-5.0) gm/dl Globulin (2.5-4.0) gm/dl Albumin/Globulin Ratio (0.9-2) Lipase (73-393) U/L Urine Color Yellow Urine Appearance Clear (Clear) Urine pH 5.5 (4.5-7.5) Ur Specific Darby 1.031 H (1.000-1.030) Urine Protein Negative (Negative) Urine Glucose (UA) Negative (Negative) Urine Ketones Negative (Negative) Urine Blood Negative (Negative) Urine Nitrite Negative (Negative) Urine Bilirubin Negative (Negative) Urine Urobilinogen Negative (Negative) Ur Leukocyte Esterase Trace H (Negative) Urine WBC (Auto) 5-10 H (0-5) /hpf Urine RBC (Auto) 0-4 (0-4) /hpf U Hyaline Cast (Auto) 1-5 (0-5) /lpf U Epithel Cells (Auto) 5-10 H (0-5) /lpf Urine Bacteria (Auto) Negative (Negative) Urine Opiates Screen Pos H (Neg) Ur Methadone, Qual Neg (Neg) Urine Barbiturates Neg (Neg) Ur Phencyclidine (PCP) Neg (Neg) U Amphetamin/Meth Scrn Neg (Neg) MDMA (Ecstasy) Screen Pos H (Neg) U Benzodiazepines Scrn Pos H (Neg) Ur Cocaine Metabolite Neg (Neg) U Marijuana (THC) Screen Neg (Neg) Imaging Data Radiologist's Impression: Preliminary Findings Only See Final Report For Complete Findings CT ABDOMEN & PELVIS Without Contrast: Multiple right distal ureteral calcification is measuring up to 4 mm with mild hydroureter and hydronephrosis. 2-3 additional right-sided nonobstructive kidney stones measuring up to 3 mm. 4-5 left-sided nonobstructive kidney stones measuring up to 4 mm. Normal appendix. Preliminary Findings Only See Final Report For Complete Findings CTA CHEST: Comparison made with rib radiographs performed on 10/18/2019. No evidence of pulmonary embolus. Minimally displaced, possibly subacute, fractures of the left anterior sixth and seventh ribs. No other acute bony findings. ECG Data Attestation: I personally reviewed and interpreted this ECG as follows: Indication: + chest pain Additional Comments: Normal sinus rhythm @[address] elevation or ectopy Normal ECG When compared with ECG of 29-JUL-2016 19:49, No significant change was found Prescription Drug Monitoring [place] Drug Monitoring [place] reviewed and findings noted below (61 prescriptions over the past 12 months, primarily for chronic medication such as Ambien with scattered opioid prescriptions) Blood Pressure Blood Pressure Disposition: elevated BP felt to be situational MDM Narrative Physical exam and history were performed. Nursing notes, EMR, and Medication List were personally reviewed. Patient appears to have right-sided abdominal pain as well as left-sided chest pain bring him to the ER. He is also quite nauseated and has not had much to eat or drink today. IV access was established and labs were obtained. The patient was hydrated with normal saline and given IV Toradol, IV Tylenol, and IV Zofran for comfort. He was sent to CT imaging to get CT scan of his chest due to his chest wall pain and family history of DVT/PE, as well as CT scan of his abdomen and pelvis to evaluate for possible stone. The patient's blood work is as above and was reviewed. He does not have a significantly elevated white blood cell count, gross anemia, bandemia, or si gnificant electrolyte imbalance. Creatinine is slightly elevated at 1.52 and he was given additional IV fluids. Alk phos is 149, ALT is 40, and AST is 12. Lipase is normal. Urine is with trace esterase but no overt evidence of infection. Drug of abuse screen did initially flagged positive for opioids, MDMA, and benzodiazepines. I suspect the MDMA is from his Wellbutrin, and he has been on opioids and benzodiazepines. CT scan of the chest was reviewed by myself and radiology, and scan does confirm the left-sided rib fractures that are subacute. Thankfully CT scan does not show pulmonary emboli. CT scan of the abdomen and pelvis was also reviewed by myself and radiology and does show multiple right ureteral calculi. On reevaluation the patient continues to appear uncomfortable. He was given 6 mg IV morphine for comfort. I discussed options of care with the patient, and despite him having Vicodin and Zofran at home, he continues to do poorly. Because of this he will likely do better in the hospital. The case was discussed with the on-call hospitalist who agreed to evaluate the patient here in the ER. Of note I did keep the patient's , Kiesha ([phone]), up-to-date with his progress while he was here in the ER. The chart was completed utilizing [employer] Speech Voice Recognition Software. Grammatical errors, random word insertions, pronoun errors, and incomplete sentences are an occasional consequence of this system due to software limitations, ambient noise, and hardware issues. Any formal questions or concerns about the content, text, or information contained within the body of this dictation should be directly addressed to the provider for clarification. . Impression & Plan Calculus of right ureter, Abdominal pain, Multiple rib fractures Discharge Plan Visit Data Chief Complaint: GI Assessment Stated Complaint: 3 BROKEN RIBS, KIDNEY STONE, NAUSEA, ABD PAIN ED Provider: Primitivo Beard ED Midlevel Provider: Cem Foote Discharge Problem: Calculus of right ureter, Abdominal pain, Multiple rib fractures Forms Stand Alone Forms: [employer] Prescriptions Prescriptions: No Action MOMETASONE FUROATE-FORMOTEROL (DULERA 200/5 MCG) 1 AER AER 2 puff Inhalation QAM Qty: 0 RF: 0 bupropion HCl [Wellbutrin SR] 200 mg Tablet Sustained-Release 12 Hr 200 mg PO QAM Qty: 0 RF: 0 hydrocodone-acetaminophen [[place]] 5-325 mg tablet 1 tab PO Q6 PRN (Reason: Pain) RF: 0 ondansetron 8 mg tablet,disintegrating 8 mg translingual UD PRN (Reason: Nausea) RF: 0 zolpidem [Ambien] 5 mg tablet 5 mg PO HS RF: 0 acetaminophen [Tylenol Extra Strength] 500 mg Tablet 1,000 mg PO Q6H PRN (Reason: Pain) RF: 0 ibuprofen 200 mg Tablet 200 - 800 mg PO Q6H PRN (Reason: Pain) RF: 0 chlordiazepoxide HCl 10 mg Capsule 20 mg PO .ON HOLD RF: 0 montelukast [Singulair] 10 mg Tablet 10 mg PO HS RF: 0 albuterol sulfate [Proventil HFA] 90 mcg/actuation Hfa Aerosol Inhaler 1 - 2 inh INHALATION QID PRN (Reason: Shortness Of Breath Or Wheezing) RF: 0 prazosin [Minipress] 2 mg Capsule 2 mg PO BID RF: 0 duloxetine [Cymbalta] 30 mg Capsule,Delayed Release(Dr/Ec) 30 mg PO HS RF: 0 duloxetine [Cymbalta] 60 mg Capsule,Delayed Release(Dr/Ec) 60 mg PO QAM RF: 0 zolpidem [Ambien CR] 12.5 mg Tablet,Ext Release Multiphase 12.5 mg PO HS RF: 0 prazosin 2 mg Capsule 4 mg PO HS RF: 0 diclofenac sodium 75 mg tablet,delayed release (DR/EC) 75 mg PO BID Qty: 60 RF: 0 Referrals Referrals: Chuy Louie [Primary Care Provider] - Discharge Problem: Abdominal pain Qualifiers: Abdominal location: right lower quadrant Qualified Code(s): R10.31 - Right lower quadrant pain Multiple rib fractures Qualifiers: Encounter type: sequela Fracture type: closed Laterality: left Qualified Code(s): S22.42XS - Multiple fractures of ribs, left side, sequela
[2019-10-24 22:24] LABS: Basophils # (auto) 0.03 K/uL (0-0.2); Basophils % (auto) 0.3 %; Eosinophils # (auto) 0.06 K/uL (0-0.5); Eosinophils % (auto) 0.6 %; Hemoglobin 14.4 g/dL (14.0-18.0); Immature Granulocytes # (auto) 0.07 K/uL (0.00-0.02); Immature Granulocytes % (auto) 0.7 %; Lymphocytes # (auto) 2.14 K/uL (1.2-3.4); Lymphocytes % (auto) 20.8 %; Mean Corpuscular Hemoglobin 33.1 pg (25-34); Mean Platelet Volume 8.8 fL (7.4-10.4); Monocytes # (auto) 0.68 K/uL (0.11-0.59); Monocytes % (auto) 6.6 %; Neutrophils # (auto) 7.32 K/uL (1.4-6.5); Platelet Count 364 K/uL (130-400); RDW Coefficient of Variation 13.3 % (11.5-14.5); RDW Standard Deviation 44.4 fL (36.4-46.3); Red Blood Count 4.35 M/uL (4.7-6.1)
[2019-10-24 22:47] LABS: Alanine Aminotransferase 40 U/L (12-78); Alkaline Phosphatase 149 U/L (45-117); BUN Creatinine Ratio 14.1 (10-20); Bilirubin,Total 0.6 mg/dl (0.2-1); Blood Urea Nitrogen 22 mg/dl (7-18); Calcium 10.1 mg/dl (8.5-10.1); Carbon Dioxide 24 mmol/L (21-32); Chloride 101 mmol/L (98-107); Creatinine Clr Calc Pharmacy 64.9 ml/min; Est GFR (Non-African American) 56.1; Glucose 116 mg/dl (70-99); Lipase 43 U/L (73-393); Sodium 133 mmol/L (136-145); Troponin I < 0.015 ng/ml (0-0.045)
[2019-10-24] MEDS ORDERED: ACETAMINOPHEN 1,000 MG/100 ML VIAL IV STA (22:48)
[2019-10-24] MEDS ORDERED: OPTIRAY 320 125ml IV PRN (23:10)
[2019-10-24 23:32] LABS: Potassium 4.5 mmol/L (3.5-5.1)
[2019-10-24] MEDS ORDERED: MoRPHine SULFATE 10 MG/ML CARP/VIAL IV STA (23:47)
[2019-10-25 00:25] LABS: Appearance Urine Clear (Clear); Bacteria Urine Automated Negative (Negative); Bilirubin Urine Negative (Negative); Blood Urine Negative (Negative); Color Urine Yellow; Glucose Urine UA Negative (Negative); Ketones Urine Negative (Negative); Leukocyte Esterase Urine Trace (Negative); Nitrite Urine Negative (Negative); Protein Urine Negative (Negative); RBC Urine Automated 0-4 /hpf (0-4); Specific Gravity Urine 1.031 (1.000-1.030); Urobilinogen Urine Negative (Negative); pH Urine 5.5 (4.5-7.5)
[2019-10-25 00:37] LABS: Amphetamines+Metham, Urine Neg (Neg); Barbiturates, Urine Neg (Neg); Benzodiazepine, Urine Pos (Neg); Cocaine, Urine Neg (Neg); MDMA (Ecstacy), Urine Pos (Neg); Methadone, Urine Neg (Neg); Opiate, Urine Pos (Neg); Phencyclidine, Urine Neg (Neg)
[2019-10-25] MEDS ORDERED: MoRPHine SULFATE 2 MG/ML CARP IV STA (01:12)
--- NOTE | 2019-10-25 01:26 | History & Physical Report ---
Date of Service October 25, 2019 Assessment & Plan (1) Hydronephrosis concurrent with and due to calculi of kidney and ureter: Mr. Ayala is a 39 yo gentleman with a PMHx of nephrolithiasis requiring lithotripsy and ureteral stent placement presenting to the ED with progressive abdominal pain, found to have a R sided distal uretal non-obstructive stone with associated mild hydronephrosis. - calculus of R ureter is characterized as distal and non-obstructive with associated, mild right sided hydronephrosis - treat stone as below - history of chills prior to presentation concerning for possible infection, although patient has been afebrile since admission, WBC count was normal, UA was not impressive and stone characterized as non-obstructive, pending final read - repeat CBC in AM - will hold off on ABX at this time, but low threshold for adding on if suspicion for pyelo increases (2) Calculus of right ureter: - calculus of R ureter is characterized as distal and non-obstructive - continue IV fluids - continue Flomax - continue IV morphine for pain control - continue IV Zofran for nausea - strain all urine; stone analysis pending capture - consult urology (3) Bilateral nephrolithiasis: - right sided stone as above - left sided stones in kidney also present - treatment as above (4) Multiple rib fractures: - secondary to traumatic fall 2.5 weeks ago - left sided, 6-7th ribs, visualized on rib series from 10/[address] chest on admission - pain control as above (5) Constipation: - visualized on KUB from 10/17 - daily miralax scheduled (6) PTSD (post-traumatic stress disorder): - co-morbid with anxiety/depression - patient follows with psychiatry - holding Librium while on opioids - continue home dosing of prazosin, Ambien cymbalta and bupropion (7) Positive urine drug screen: - MDMA screen positive on admission - likely from buproprion use Dispo: Floor Diet: NPO until evaluated by urology in the event of possible procedure DVT ppx: bilateral SCDs, patient ambulatory Code: Full History of Present Illness Primary Care Provider: Chuy Tuttlejitendra Calix is a 39 yo male with a PMHx of nephrolithiasis s/p lithotripsy, cystoscopy and ureteral stent placement (twelve years ago) who presents to the ED with increasing right sided flank pain. Of note, he was seen by his PCP on Friday, 10/17 at which time a KUB was ordered and showed several left sided kidney stones. His PCP gave him a small amount of tramadol and Vicodin and started him on Flomax, however he came to the ED when his pain requirement continued to increase despite use of these medications. Prior to presentation, he also was experiencing chills, sweats and nausea. Mr. Ayala endorses a strong, positive family history of kidney stones. As an aside, Mr. Ayala was also complaining of left sided chest pain at the time of his visit with his PCP on 10/17, and in the setting of a preceding traumatic fall, a CXR was ordered and showed 6th-7th rib fractures on the left side. Mr. Ayala reports continued discomfort at the site of his known rib fractures on the left chest wall. His PMHx is also significant for PTSD - within the past 3 years he has lost 7 of his family members, including his father. Mr. Ayala recounts the trauma of finding his father's body. He is seeing a psychiatrist, who is managing his Librium, Prazosin, Cymbalta and bupropion. Mr. Ayala stopped his Librium on Friday, 10/17 when he started taking the opioids. ED Course: WBC normal. Cr elevated to 1.52. UA showing trace LE and 5-10 WBCs, neg bacteria. EKG normal. CT Chest showing left sided rib fractures, pending final read. CT abdomen and pelvis showing multiple right sided ureteral stones, largest measuring 4mm, characterized as non-obstructive, with mild hydronephrosis and multiple left sided kidney stones, largest 4mm, also non- obstructing. Final read pending. He was given 1 dose of Toradol 30mg, IV, Morphine 6mg, IV, Zofran 4mg, IV, and 2 liters of IV normal saline. Allergies Allergy/AdvReac Type Severity Reaction Status Date / Time animal dander Allergy Severe ASTHMA Verified 10/24/19 21:26 mold Allergy Severe ASTHMA Verified 10/24/19 21:26 pollen extracts Allergy Severe ASTHMA Verified 10/24/19 21:26 No Known Drug Allergies Allergy Unknown . Verified 10/24/19 21:26 Home Medications Home Medications Medication Instructions Recorded Confirmed Type MOMETASONE FUROATE-FORMOTEROL 2 puff INHALATION QAM #0 01/28/16 10/24/19 History (DULERA 200/5 MCG) bupropion HCl [Wellbutrin SR] 200 mg PO QAM #0 tab 07/29/16 10/24/19 History albuterol sulfate [Proventil HFA] 1 - 2 inh INHALATION QID PRN 08/20/19 10/24/19 History chlordiazepoxide HCl 20 mg PO .ON HOLD 08/20/19 10/24/19 History duloxetine [Cymbalta] 30 mg PO HS 08/20/19 10/24/19 History duloxetine [Cymbalta] 60 mg PO QAM 08/20/19 10/24/19 History montelukast [Singulair] 10 mg PO HS 08/20/19 10/24/19 History prazosin [Minipress] 2 mg PO BID 08/20/19 10/24/19 History zolpidem [Ambien CR] 12.5 mg PO HS 08/20/19 10/24/19 History diclofenac sodium 75 mg PO BID #60 tab 08/23/19 10/24/19 Rx prazosin 4 mg PO HS 08/23/19 10/24/19 History acetaminophen [Tylenol Extra 1,000 mg PO Q6H PRN 10/24/19 10/24/19 History Strength] hydrocodone-acetaminophen [[place]] 1 tab PO Q6 PRN 10/24/19 10/24/19 History ibuprofen 200 - 800 mg PO Q6H PRN 10/24/19 10/24/19 History ondansetron 8 mg TRANSLINGUAL UD PRN 10/24/19 10/24/19 History zolpidem [Ambien] 5 mg PO HS 10/24/19 10/24/19 History Past Med/Surg History Medical History Anxiety R/T PTSD Asthma USES RESCUE INHALER 2 X A WEEK. CURRENTLY CONTROLLED, PER PATIENT. PATIENT STATES THEY HAVE HAD TO USE HIS INHALER OR INCREASE HIS OXYGEN NEED IN PACU IN THE PAST. INSTRUCTED HIM TO BRING INHALER DOS. Depression R/T PTSD GERD (gastroesophageal reflux disease) OCCASIONALLY - CONTROLLED Kidney stones S/P LITHOTRIPSY AND SUBSEQUENT CYSTOSCOPY Osteoarthritis GENERALIZED Post traumatic stress disorder Surgical History H/O shoulder surgery PINS PLACED IN RIGHT SHOULDER History of cystoscopy History of lithotripsy History of surgery on arm NAIL REMOVED FROM ARM Hx of tonsillectomy PONV (postoperative nausea and vomiting) X1 WITH SURGERY FROM NAIL REMOVED FROM ARM Social History Preferred Language: Kyrgyz Communication Ability: Effective Iron Assorter Required: No Beliefs That Will Affect Care: None Current Living Situation: Spouse and Family Other Information That Helps Us Care for You: No Feels Safe at Home: Yes Safety Concerns: Feels Safe At This Time Smoking Status: Never smoker Do You Dip or Chew Tobacco: No ; Second Hand Exposure: No ; Tobacco Cessation Education Requested by Patient: No Hx Alcohol Use: No Hx Substance Use: No Review of Systems Genitourinary: no dysuria and no urinary frequency Physical Exam Constitutional: WD/WN, vitals as above + acute distress (secondary to pain) Eyes: + scleral abnormality ENMT: external ear and nose normal, oropharynx normal Neck: normal visual inspection and trachea midline Respiratory: normal respiratory effort, lungs clear to auscultation Auscultation: + wheezes (faint expiratory wheeze on right lower lobe) Cardiovascular: RRR, no murmur, no edema Extremities: + pedal edema (trace on R LE) Chest (Breasts): Additional Comments: + chest wall tender to light palpation on Left side Gastrointestinal (Abdomen): Inspection/Auscultation: + abdomen distended and normal bowel sounds Percussion/Palpation: + abdomen tender (suprapubic area) and + abdomen firm; no guarding No CVA tenderness bilaterally Skin: no rashes, warm and dry Psychiatric: A+Ox3, euthymic affect Results & Data Results & Data ([facility]) Vital Signs (Past 12 Hours) Vital Signs Temp Pulse Resp BP Pulse Ox 10/25/19 01:02 16 167/102 H 96 10/25/19 00:01 16 175/108 H 97 10/24/19 23:55 14 166/126 H 99 10/24/19 23:31 14 175/116 H 98 10/24/19 23:01 99 H 12 173/107 H 98 10/24/19 22:31 92 H 12 182/112 H 98 10/24/19 22:19 85 12 176/114 H 97 06/07/20 20:18 37.0 C 121 H 20 178/101 H 99 Supervising Physician Co-Signing Physician Notes Patient seen and examined, chart reviewed, case discussed with Dr. Huerta and I agree with her assessment and plan as documented above. Briefly, patient is a 39yo C male with history of nephrolithiasis and prior lithotripsy with stent placement presenting with right distal ureteral stone with associated hydronephrosis. On exam patient is afebrile, mildly hypertensive, uncomfortable, in mild distress secondary to pain Skin - intact, no rashes/lesions HEENT - NC/AT, PERRL, MMM, Neck supple Heart - +S1/S2, regular, no m/r/g Lungs - CTA, +CW pain with palpation Abd - +BS, soft, mildly distended, tender with no rebound/guarding/peritoneal si gns Ext - RLE edema 1+ pitting from prior fracture Labs and images reviewed. Significant for Pt=276, BUN=22, Cr=1.52, BG=600 Assessment/Plan: 39yo C male with distal right ureteral stone with hydronephrosis, significant discomfort and nausea -Admit to medical floor -NPO except meds -IVF, Flomax, strain urine -Anti-emetics and pain control as needed -Urology consultation appreciated -Remainder of plan as above Resident Activity Tracking Resident Involvement: Resident Care Provided Care Provided: Adult Hospital Medicine (1) Multiple rib fractures Encounter type: sequela Fracture type: closed Laterality: left Qualified Code(s): S22.42XS - Multiple fractures of ribs, left side, sequela
[2019-10-25] MEDS ORDERED: ALBUTEROL HFA 8 GM INHALER INH PRN (02:34)
[2019-10-25] MEDS ORDERED: ALUMINUM/MAGNESIUM SUSP 30 ML UDC PO PRN (02:34)
[2019-10-25] MEDS ORDERED: MAGNESIUM HYDROXIDE SUSP 30 ML UDC PO PRN (02:34)
[2019-10-25] MEDS ORDERED: ONDANSETRON INJ 2 MG/ML 2 ML VIAL IV PRN (02:34)
[2019-10-25] MEDS ORDERED: ACETAMINOPHEN 325 MG TAB PO PRN (02:34)
[2019-10-25] MEDS: MoRPHine SULFATE 4 MG/ML 1 ML CARP\\VIAL IV PRN ×6 (03:24→23:49)
--- NOTE | 2019-10-25 03:58 | Billing Data ---
Date of Service October 25, 2019 Coding Level of Care Code 60685 Initial Inpt Care Lvl 3
[2019-10-25] MEDS ORDERED: ACETAMINOPHEN 1000 MG/100 ML IV IV PRN (06:27)
--- NOTE | 2019-10-25 07:31 | CT Scan Report ---
CT ANGIOGRAPHY OF THE CHEST, PULMONARY EMBOLUS PROTOCOL CLINICAL HISTORY: Left side CP. Hx recent broken ribs. fam hx PE COMPARISON STUDY: Chest radiograph and left rib series October 18, 2019. TECHNIQUE: Following IV administration of 120 mL of Optiray-320, helical axial images of the chest we re obtained utilizing the pulmonary embolus protocol. Maximal intensity projections and sagittal and coronal reformats were viewed on an independent 3D workstation. IV contrast was administered withou t complication. Automated exposure control was utilized for the study. A dose lowering technique wa s utilized adhering to the principles of ALARA. FINDINGS: No pulmonary embolus is identified. There is no thoracic aortic dissection. The size of th e heart is normal. There is no pericardial effusion. No enlarged thoracic lymph nodes are noted. The central airways are patent. There is no consolidation to suggest pneumonia. No pneumothorax or pleura l effusion is noted. There are no suspicious osseous lesions. Note is made of minimally displaced fra ctures of the anterior left sixth and seventh ribs, as shown on rib series October 18, 2019. These are chiang bacute. IMPRESSION: 1. No pulmonary embolus identified. 2. Subacute minimally displaced fractures of the anterior left sixth and seventh ribs. No pneumothora x. ACT 112: Negative or not required by law. Electronically signed by: En Ron M.D. 10/25/2019 7:30 AM
--- NOTE | 2019-10-25 07:36 | CT Scan Report ---
CT OF THE ABDOMEN AND PELVIS WITHOUT CONTRAST CLINICAL HISTORY: Right flank pain. Hx stones in past. COMPARISON STUDY: CT of the abdomen and pelvis May 22, 2012. KUB October 18, 2019. TECHNIQUE: Axial images of the abdomen and pelvis were obtained without IV contrast. Images were revi ewed in the axial, sagittal, and coronal planes. Automated exposure control was utilized for the jesi dy. A dose lowering technique was utilized adhering to the principles of ALARA. FINDINGS: Subacute fractures of the anterior left sixth and seventh ribs are depicted on the chest CT . Please see that report for further description. Several distal right ureteral calculi measure up to 4 mm. There is mild right hydroureteronephrosis. Multiple bilateral renal calculi measure up to 4 mm . There are no left ureteral calculi. Evaluation of the remainder of the abdomen and pelvis is subopt imal on this unenhanced examination. The liver, spleen, adrenal glands and pancreas are unremarkable. Is no evidence for a bowel obstruction. The appendix is normal. There is no ascites or lymphadenopat hy. There are no suspicious osseous lesions. IMPRESSION: 1. Several distal right ureteral calculi that measure up to 4 mm with mild right hydroureteronephrosi s. 2. Bilateral nephrolithiasis. ACT 112: Negative or not required by law. Electronically signed by: En Ron M.D. 10/25/2019 7:35 AM
[2019-10-25] MEDS ORDERED: FLUTICASONE/VILANTEROL 100/25MCG 14 PUFFS/INHALER INH SCH (09:00)
--- NOTE | 2019-10-25 09:13 | Hospitalist Progress Note ---
Date of Service October 25, 2019 Assessment & Plan (1) Hydronephrosis concurrent with and due to calculi of kidney and ureter: Mr. Ayala is a 39 yo gentleman with a PMHx of nephrolithiasis requiring lithotripsy and ureteral stent placement presenting to the ED with progressive abdominal pain, found to have a R sided distal uretal non-obstructive stone with associated mild hydronephrosis. 1. BL nephrolithiasis with R hydronephrosis - CT abd/pelv: 4 mm nonobstructive stone with mild R hydrureteronephrosis, BL nephrolithiasis - maintenance fluids at 123 ml/hr - morphine 4 mg IV Q6 PRN pain - FLomax + Prazosin for increased urine flow/stone passage - Zofran PRN for nausea - Urology: Cystoscopy today, continue NPO - afebrile, normal WBC, UA negative; holding antibiotics at this time, low suspicion for pyelonephritis 2. Multiple rib fractures - secondary to traumatic fall 2.5 weeks ago - left sided, 6-7th ribs, visualized on rib series from 10/[address] chest on admission - pain control as above 3. Constipation - visualized on KUB from 10/17 - daily miralax scheduled 4. PTSD - co-morbid with anxiety/depression - patient follows with psychiatry - holding Librium while on opioids - continue home dosing of prazosin, Ambien cymbalta and bupropion 5. Positive UDS - MDMA screen positive on admission - likely from buproprion use Dispo: Med/Surg Diet: NPO DVT ppx: bilateral SCDs, patient ambulatory Code: Full (2) Calculus of right ureter: (3) Bilateral nephrolithiasis: (4) Multiple rib fractures: (5) Constipation: (6) PTSD (post-traumatic stress disorder): (7) Positive urine drug screen: Admission and Anticipated Discharge Date Admission Date: October 25, 2019 Supervising Physician Co-Signing Physician Notes I personally examined the patient and verified all timmons points of history and exam, discussed case, and agree with decision making with Dr Hooker. feeling better post op. prior bad experience with stent so wants to make sure doesn't happen again vitals noted nad heent nc at mmm breathing unlabored no accessory muscles good effort skin no rashes no pallor or icterus ureterolithiasis - now s/p cysto, stenting. stable. follow for pain control - hopefully home tomorrow Subjective Continues to have waves of pain in lower abdomen and groin this morning. Says morphine helps more than toradol did, but pain gets up to a 7 when it spikes. Has been trying to "tough it out" and has not had morphine and zofran as scheduled. Denies any back pain or radiation of pain. Nausea only present with peak abdominal pain. Review of Systems Constitutional: no fever, no chills, no body aches and no fatigue Respiratory: no cough and no dyspnea Cardiovascular: no chest pain, no dyspnea and no edema Gastrointestinal: + abdominal pain and + nausea; no vomiting, no constipation and no diarrhea/loose stools Genitourinary: + genital pain and + testicle pain; no flank pain Physical Exam Constitutional: In obvious pain laying in bed shaking but conversational Respiratory: normal respiratory effort, lungs clear to auscultation Cardiovascular: RRR, no murmur, no edema Gastrointestinal (Abdomen): No CVA tenderness bilaterally, abdominal exam deferred during acutely worsening pain episode Results & Data Results & Data ([facility]) Vital Signs (Past 12 Hours) Vital Signs Temp Pulse Pulse Resp BP BP Pulse Ox 10/25/19 08:31 36.6 C 95 H 20 154/90 H 96 10/25/19 02:30 36.8 C 18 179/114 H 94 10/25/19 01:31 8 L 165/114 H 96 10/25/19 01:29 10 L 171/112 H 97 10/25/19 01:02 16 167/102 H 96 10/25/19 00:01 16 175/108 H 97 10/24/19 23:55 14 166/126 H 99 10/24/19 23:31 14 175/116 H 98 10/24/19 23:01 99 H 12 173/107 H 98 10/24/19 22:31 92 H 12 182/112 H 98 10/24/19 22:19 85 12 176/114 H 97 10/24/19 10/24/19 10/24/19 Range/Units 23:55 23:55 23:55 WBC (4.8-10.8) K/uL RBC (4.7-6.1) M/uL Hgb (14.0-18.0) g/dL Hct (42-52) % MCV (80-100) fL MCH (25-34) pg MCHC (32-36) g/dL RDW Std Deviation (36.4-46.3) fL RDW Coeff of Will (11.5-14.5) % Plt Count (130-400) K/uL MPV (7.4-10.4) fL Immature Gran % (Auto) % Neut % (Auto) % Lymph % (Auto) % [place] % (Auto) % Eos % (Auto) % Baso % (Auto) % Immature Gran # (Auto) (0.00-0.02) K/uL Neut # (Auto) (1.4-6.5) K/uL Lymph # (Auto) (1.2-3.4) K/uL [place] # (Auto) (0.11-0.59) K/uL Eos # (Auto) (0-0.5) K/uL Baso # (Auto) (0-0.2) K/uL Sodium (136-145) mmol/L Potassium (3.5-5.1) mmol/L Chloride (98-107) mmol/L Carbon Dioxide (21-32) mmol/L Anion Gap (3-11) BUN (7-18) mg/dl Creatinine (0.6-1.4) mg/dl Est Cr Clr Drug Dosing ml/min Est GFR ( Amer) Est GFR (Non-Af Amer) BUN/Creatinine Ratio (10-20) Glucose (70-99) mg/dl Calcium (8.5-10.1) mg/dl Total Bilirubin (0.2-1) mg/dl AST (15-37) U/L ALT (12-78) U/L Alkaline Phosphatase (45-117) U/L Troponin I (0-0.045) ng/ml Total Protein (6.4-8.2) gm/dl Albumin (3.4-5.0) gm/dl Globulin (2.5-4.0) gm/dl Albumin/Globulin Ratio (0.9-2) Lipase (73-393) U/L Urine Color Yellow Urine Appearance Clear (Clear) Urine pH 5.5 (4.5-7.5) Ur Specific [place] 1.031 H (1.000-1.030) Urine Protein Negative (Negative) Urine Glucose (UA) Negative (Negative) Urine Ketones Negative (Negative) Urine Blood Negative (Negative) Urine Nitrite Negative (Negative) Urine Bilirubin Negative (Negative) Urine Urobilinogen Negative (Negative) Ur Leukocyte Esterase Trace H (Negative) Urine WBC (Auto) 5-10 H (0-5) /hpf Urine RBC (Auto) 0-4 (0-4) /hpf U Hyaline Cast (Auto) 1-5 (0-5) /lpf U Epithel Cells (Auto) 5-10 H (0-5) /lpf Urine Bacteria (Auto) Negative (Negative) Urine Opiates Screen Pos H (Neg) U Codeine Confrm GC/MS Pending Ur Morphine (GC/MS) Pending Ur Hydrocodone (GC/MS) Pending Ur Norhydrocodone Pending Ur Noroxycodone Pending Urine Oxycodone (GC/MS) Pending U Oxymorphone GC/MS Pending Ur Methadone, Qual Neg (Neg) Ur Hydromorphone (GC/MS) Pending Urine Barbiturates Neg (Neg) Ur Phencyclidine (PCP) Neg (Neg) U Amphetamin/Meth Scrn Neg (Neg) Urine MDEA Pending MDMA (Ecstasy) Screen Pos H (Neg) MDMA Pending Urine MDMA Pending U [place]-Alprazolam Confrm Pending U Benzodiazepines Scrn Pos H (Neg) 7-Amino Clonazepam Pending Ur Nordiazepam Confirm Pending U OH-ethylflurazepam Pending U Lorazepam Cnf GC/MS Pending U Oxazepam Confm GC/MS Pending Ur Temazepam Confirm Pending U OH-Triazolam Confirm Pending U OH-Midazolam Confirm Pending Ur Cocaine Metabolite Neg (Neg) U Marijuana (THC) Screen Neg (Neg) Drug Screen Comment Pending 10/24/19 10/24/19 10/24/19 Range/Units 23:01 22:03 22:03 WBC 10.30 (4.8-10.8) K/uL RBC 4.35 L (4.7-6.1) M/uL Hgb 14.4 (14.0-18.0) g/dL Hct 40.0 L (42-52) % MCV 92.0 (80-100) fL MCH 33.1 (25-34) pg MCHC 36.0 (32-36) g/dL RDW Std Deviation 44.4 (36.4-46.3) fL RDW Coeff of Will 13.3 (11.5-14.5) % Plt Count 364 (130-400) K/uL MPV 8.8 (7.4-10.4) fL Immature Gran % (Auto) 0.7 % Neut % (Auto) 71.0 % Lymph % (Auto) 20.8 % [place] % (Auto) 6.6 % Eos % (Auto) 0.6 % Baso % (Auto) 0.3 % Immature Gran # (Auto) 0.07 H (0.00-0.02) K/uL Neut # (Auto) 7.32 H (1.4-6.5) K/uL Lymph # (Auto) 2.14 (1.2-3.4) K/uL [place] # (Auto) 0.68 H (0.11-0.59) K/uL Eos # (Auto) 0.06 (0-0.5) K/uL Baso # (Auto) 0.03 (0-0.2) K/uL Sodium 133 L (136-145) mmol/L Potassium 4.5 (3.5-5.1) mmol/L Chloride 101 (98-107) mmol/L Carbon Dioxide 24 (21-32) mmol/L Anion Gap 8.0 (3-11) BUN 22 H (7-18) mg/dl Creatinine 1.52 H (0.6-1.4) mg/dl Est Cr Clr Drug Dosing 64.9 ml/min Est GFR ( Amer) 65.0 Est GFR (Non-Af Amer) 56.1 BUN/Creatinine Ratio 14.1 (10-20) Glucose 116 H (70-99) mg/dl Calcium 10.1 (8.5-10.1) mg/dl Total Bilirubin 0.6 (0.2-1) mg/dl AST 12 L (15-37) U/L ALT 40 (12-78) U/L Alkaline Phosphatase 149 H (45-117) U/L Troponin I < 0.015 (0-0.045) ng/ml Total Protein 8.0 (6.4-8.2) gm/dl Albumin 4.0 (3.4-5.0) gm/dl Globulin 4.0 (2.5-4.0) gm/dl Albumin/Globulin Ratio 1.0 (0.9-2) Lipase 43 L (73-393) U/L Urine Color Urine Appearance (Clear) Urine pH (4.5-7.5) Ur Specific [place] (1.000-1.030) Urine Protein (Negative) Urine Glucose (UA) (Negative) Urine Ketones (Negative) Urine Blood (Negative) Urine Nitrite (Negative) Urine Bilirubin (Negative) Urine Urobilinogen (Negative) Ur Leukocyte Esterase (Negative) Urine WBC (Auto) (0-5) /hpf Urine RBC (Auto) (0-4) /hpf U Hyaline Cast (Auto) (0-5) /lpf U Epithel Cells (Auto) (0-5) /lpf Urine Bacteria (Auto) (Negative) Urine Opiates Screen (Neg) U Codeine Confrm GC/MS Ur Morphine (GC/MS) Ur Hydrocodone (GC/MS) Ur Norhydrocodone Ur Noroxycodone Urine Oxycodone (GC/MS) U Oxymorphone GC/MS Ur Methadone, Qual (Neg) Ur Hydromorphone (GC/MS) Urine Barbiturates (Neg) Ur Phencyclidine (PCP) (Neg) U Amphetamin/Meth Scrn (Neg) Urine MDEA MDMA (Ecstasy) Screen (Neg) MDMA Urine MDMA U [place]-Alprazolam Confrm U Benzodiazepines Scrn (Neg) 7-Amino Clonazepam Ur Nordiazepam Confirm U OH-ethylflurazepam U Lorazepam Cnf GC/MS U Oxazepam Confm GC/MS Ur Temazepam Confirm U OH-Triazolam Confirm U [place]-Midazolam Confirm Ur Cocaine Metabolite (Neg) U Marijuana (THC) Screen (Neg) Drug Screen Comment Resident Activity Tracking Resident Involvement: Resident Care Provided Care Provided: Adult Hospital Medicine (1) Multiple rib fractures Encounter type: sequela Fracture type: closed Laterality: left Qualified Code(s): S22.42XS - Multiple fractures of ribs, left side, sequela
[2019-10-25] MEDS: SODIUM CHLORIDE 0.9% 1000ML 1,000 ML IV SCH ×2 (09:20→20:52)
[2019-10-25] MEDS: DULOXETINE HCL 60 MG CAP PO SCH (09:24)
[2019-10-25] MEDS: BuPROPion SR 100 MG TABCR PO SCH (09:24)
[2019-10-25] MEDS: POLYETHYLENE (MIRALAX) 17 GM PACK PO SCH (09:25)
[2019-10-25] MEDS: PRAZOSIN HCL 1 MG CAP PO SCH ×3 (09:25→20:51)
--- NOTE | 2019-10-25 12:53 | Urology Consultation ---
Date of Consultation October 25, 2019 Assessment & Plan (1) Hydronephrosis concurrent with and due to calculi of kidney and ureter: Risks and benefits discussed at length for procedure. These include bleeding, infection, injury to surrounding tissues or organs, and risks associated with anesthesia. Patient states understanding and agrees to proceed. Will sign consent and schedule. Will schedule Cystoscopy with right ureteroscopy to be done today. Maintain NPO. Continue abx. Constinue supportive care. History of Present Illness Attending Physician: Gabriel Frey DO History of Present Illness New consultation for patient with stone, discomfort, obstruction, and ill feelings. Patient had initially presented with chest pains and abdominal pain into flank and back. Has a history of stones in the past. 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 Has not been seen in the near 10 years. No significant family history of issues. Patient developed sudden onset of pain into flank going down and radiating into groin and back in waves comes and goes. Can be severe at times. Discussed and reviewed patient's family history for any history of stone disease. Also, discussed patient's medical surgery history especially related to any history of urinary issues or stone disease. Patient was admitted and is undergoing observation. Allergies Allergy/AdvReac Type Severity Reaction Status Date / Time animal dander Allergy Severe ASTHMA Verified 10/24/19 21:26 mold Allergy Severe ASTHMA Verified 10/24/19 21:26 pollen extracts Allergy Severe ASTHMA Verified 10/24/19 21:26 No Known Drug Allergies Allergy Unknown . Verified 10/24/19 21:26 Home Medications Home Medications Medication Instructions Recorded Confirmed Type MOMETASONE FUROATE-FORMOTEROL 2 puff INHALATION QAM #0 01/28/16 10/24/19 History (DULERA 200/5 MCG) bupropion HCl [Wellbutrin SR] 200 mg PO QAM #0 tab 07/29/16 10/24/19 History albuterol sulfate [Proventil HFA] 1 - 2 inh INHALATION QID PRN 08/20/19 10/24/19 History chlordiazepoxide HCl 20 mg PO .ON HOLD 08/20/19 10/24/19 History duloxetine [Cymbalta] 30 mg PO HS 08/20/19 10/24/19 History duloxetine [Cymbalta] 60 mg PO QAM 08/20/19 10/24/19 History montelukast [Singulair] 10 mg PO HS 08/20/19 10/24/19 History prazosin [Minipress] 2 mg PO BID 08/20/19 10/24/19 History zolpidem [Ambien CR] 12.5 mg PO HS 08/20/19 10/24/19 History diclofenac sodium 75 mg PO BID #60 tab 08/23/19 10/24/19 Rx prazosin 4 mg PO HS 08/23/19 10/24/19 History acetaminophen [Tylenol Extra 1,000 mg PO Q6H PRN 10/24/19 10/24/19 History Strength] hydrocodone-acetaminophen [[place]] 1 tab PO Q6 PRN 10/24/19 10/24/19 History ibuprofen 200 - 800 mg PO Q6H PRN 10/24/19 10/24/19 History ondansetron 8 mg TRANSLINGUAL UD PRN 10/24/19 10/24/19 History zolpidem [Ambien] 5 mg PO HS 10/24/19 10/24/19 History Patient History Medical History Anxiety R/T PTSD Asthma USES RESCUE INHALER 2 X A WEEK. CURRENTLY CONTROLLED, PER PATIENT. PATIENT STATES THEY HAVE HAD TO USE HIS INHALER OR INCREASE HIS OXYGEN NEED IN PACU IN THE PAST. INSTRUCTED HIM TO BRING INHALER DOS. Depression R/T PTSD GERD (gastroesophageal reflux disease) OCCASIONALLY - CONTROLLED Kidney stones S/P LITHOTRIPSY AND SUBSEQUENT CYSTOSCOPY Osteoarthritis GENERALIZED Post traumatic stress disorder Surgical History H/O shoulder surgery PINS PLACED IN RIGHT SHOULDER History of cystoscopy History of lithotripsy History of surgery on arm NAIL REMOVED FROM ARM Hx of tonsillectomy PONV (postoperative nausea and vomiting) X1 WITH SURGERY FROM NAIL REMOVED FROM ARM Social History Preferred Language: Armenian Communication Ability: Effective Disaster Recovery Coordinator Required: No Beliefs That Will Affect Care: None Current Living Situation: Spouse and Family Other Information That Helps Us Care for You: No Feels Safe at Home: Yes Safety Concerns: Feels Safe At This Time Smoking Status: Never smoker Do You Dip or Chew Tobacco: No ; Second Hand Exposure: No ; Tobacco Cessation Education Requested by Patient: No Hx Alcohol Use: No Hx Substance Use: No Review of Systems Review of Systems: All systems reviewed & are unremarkable except as noted in HPI & below Physical Exam Physical Exam: General: Alert and oriented x 3 in no acute distress. Patient is well nourished and well kept. HEENT: Normocephalic Atraumatic. Inspection normal. Cranial Nerves 2-12 Grossly intact. Nares are clear. Neck is supple. Normal inspection of face. Normal inspection of neck. Neurologic: No deficits on inspection. Baseline for motor function and sensory. Psychologic: Normal affect. Respiratory: Nonlabored. No use of accessory muscles. No tachypnea or dyspnea. Cardiovascular: No tachycardia Skin: [place] and Dry. No rashes or visible lesions. Extremities: Moving without issues. No motor deficits on inspection Lymphatics: No edema Abdomen: Soft Non-distended. No acites. No rebound or guarding. Results & Data Vital Signs (Past 12 Hours) Vital Signs Temp Pulse Resp BP BP Pulse Ox 10/25/19 12:27 146/92 H 10/25/19 08:31 36.6 C 95 H 20 154/90 H 96 10/25/19 02:30 36.8 C 18 179/114 H 94 10/25/19 01:31 8 L 165/114 H 96 10/25/19 01:29 10 L 171/112 H 97 10/25/19 01:02 16 167/102 H 96 PG Care Time/CCT Total # of Minutes Spent Total Time Spent with Patient: Total time spent is greater than 50% in coordi nation of care (as documented) at patient's floor/unit and/or counseling patient: Coding Level of Care Code 32930 Inpt Consult Level 5 Diagnoses Hydronephrosis concurrent with and due to calculi of kidney and ureter N13.2
[2019-10-25] MEDS ORDERED: MIDAZOLAM HCL 1 MG/ML 2ML VIAL ONE (13:23)
[2019-10-25] MEDS ORDERED: fentaNYL citrate 100 MCG/2 ML VIAL ONE (13:23)
--- NOTE | 2019-10-25 13:58 | Anesthesiology Consultation ---
Date of Service October 25, 2019 Assessment & Plan ASA ASA3 Proposed Anesthesia Anesthesia Type: General Risk / Benefits Reviewed With: PT / POA / Parent / Guardian, Accepts Plan and Informed Consent Obtained History Surgery Operation Date: 10/25/19 08:00 Proposed Procedures p Cystoscopy, Right Ureteroscopy, Laser Lithotripsy - Fernando Lau, Height/Weight Height: 5 ft 6 in Weight: 83.4 kg Allergies Allergy/AdvReac Type Severity Reaction Status Date / Time animal dander Allergy Severe ASTHMA Verified 10/24/19 21:26 mold Allergy Severe ASTHMA Verified 10/24/19 21:26 pollen extracts Allergy Severe ASTHMA Verified 10/24/19 21:26 No Known Drug Allergies Allergy Unknown . Verified 10/24/19 21:26 Medications Home Medications Medication Instructions Recorded Confirmed Last Taken MOMETASONE FUROATE-FORMOTEROL 2 puff INHALATION QAM #0 01/28/16 10/24/19 08/23/19 06:30 (DULERA 200/5 MCG) bupropion HCl [Wellbutrin SR] 200 mg PO QAM #0 tab 07/29/16 10/24/19 08/22/19 08:00 albuterol sulfate [Proventil HFA] 1 - 2 inh INHALATION QID PRN 08/20/19 10/24/19 08/21/19 chlordiazepoxide HCl 20 mg PO .ON HOLD 08/20/19 10/24/19 08/22/19 16:00 duloxetine [Cymbalta] 30 mg PO 08/20/19 10/24/19 08/22/19 21:30 duloxetine [Cymbalta] 60 mg PO QAM 08/20/19 10/24/19 08/22/19 08:00 montelukast [Singulair] 10 mg PO HS 08/20/19 10/24/19 08/22/19 20:00 prazosin [Minipress] 2 mg PO BID 08/20/19 10/24/19 08/22/19 12:00 zolpidem [Ambien CR] 12.5 mg PO 08/20/19 10/24/19 08/22/19 20:30 diclofenac sodium 75 mg PO BID #60 tab 08/23/19 10/24/19 Unknown prazosin 4 mg PO HS 08/23/19 10/24/19 08/22/19 21:00 acetaminophen [Tylenol Extra 1,000 mg PO Q6H PRN 10/24/19 10/24/19 Unknown Strength] hydrocodone-acetaminophen [[place]] 1 tab PO Q6 PRN 10/24/19 10/24/19 Unknown ibuprofen 200 - 800 mg PO Q6H PRN 10/24/19 10/24/19 Unknown ondansetron 8 mg TRANSLINGUAL UD PRN 10/24/19 10/24/19 Unknown zolpidem [Ambien] 5 mg PO HS 10/24/19 10/24/19 Unknown Active Medications Generic Name Dose Route Start Last Admin Trade Name Freq PRN Reason Stop Dose Admin Bupropion HCl 200 mg 10/25/19 09:00 10/25/19 09:24 Wellbutrin-Sr PO 11/24/19 08:59 200 mg QAM MANUEL Administration Duloxetine HCl 60 mg 10/25/19 09:00 10/25/19 09:24 Cymbalta PO 11/24/19 08:59 60 mg QAM MANUEL Administration Fluticasone/Vilanterol 1 puffs 10/25/19 09:00 10/25/19 13:25 Breo Ellipta 100/25 Mcg Inh INH 11/24/19 08:59 Not Given DAILY MANUEL Sodium Chloride 1,000 mls @ 123 mls/hr 10/25/19 09:15 10/25/19 13:07 Nss 1000ml IV 11/24/19 09:14 0 mls/hr .Q8H8M MANUEL Infusion Ioversol 120 ml 10/24/19 23:10 10/24/19 23:11 Optiray 320 125ml IV 10/28/19 23:09 120 ml ONCE PRN Administration Interaction Checking Morphine Sulfate 4 mg 10/25/19 06:26 10/25/19 10:10 Morphine Sulfate IV 11/08/19 02:33 4 mg Q2H PRN Administration Pain Polyethylene Glycol 17 gm 10/25/19 09:00 10/25/19 09:25 Miralax Powder Packet PO 11/24/19 08:59 Not Given DAILY MANUEL Prazosin HCl 2 mg 10/25/19 09:00 10/25/19 12:27 Prazosin Hcl PO 11/24/19 08:59 2 mg BID@0900,1200 MANUEL Administration NPO Date Last Intake of Fluids: 10/24/19 Time Last Intake of Fluids: 20:00 Last Intake of Fluids Comment: sips with meds this morning Date Last Intake of Solids: 10/24/19 Time Last Intake of Solids: 12:00 Past Medical History Medical History Anxiety R/T PTSD Asthma USES RESCUE INHALER 2 X A WEEK. CURRENTLY CONTROLLED, PER PATIENT. PATIENT STATES THEY HAVE HAD TO USE HIS INHALER OR INCREASE HIS OXYGEN NEED IN PACU IN THE PAST. INSTRUCTED HIM TO BRING INHALER DOS. Depression R/T PTSD GERD (gastroesophageal reflux disease) OCCASIONALLY - CONTROLLED Kidney stones S/P LITHOTRIPSY AND SUBSEQUENT CYSTOSCOPY Osteoarthritis GENERALIZED Post traumatic stress disorder Exercise / Class Metabolic Activity 1 > 8 Run/Swim/Ski/Tennis Past Surgical History Surgical History H/O shoulder surgery PINS PLACED IN RIGHT SHOULDER History of cystoscopy History of lithotripsy History of surgery on arm NAIL REMOVED FROM ARM Hx of tonsillectomy PONV (postoperative nausea and vomiting) X1 WITH SURGERY FROM NAIL REMOVED FROM ARM Past Anesthesia History No Hx of Anesthesia Complications and No Family Hx of Anesthesia Complications History of PONV No Hx of Motion Sickness and History of PONV Social History Smoking Status: Never smoker Do You Dip or Chew Tobacco: No Hx Alcohol Use: No Alcohol type: beer alcohol intake frequency: a few times a month Alcohol Intake Frequency Comment: has not drank since july Hx Substance Use: No substance use type: does not use Review of Systems denies fever/cough/ colds/ chest pain/ SOB/ EILEEN + rib fx pain on left Constitutional: no fever and no chills Respiratory: no cough and no dyspnea denies EILEEN Cardiovascular: no chest pain and no dyspnea on exertion Physical Exam Vital Signs Last Vital Signs Temp 37 C 10/25/19 13:27 Pulse 90 10/25/19 13:27 Resp 20 10/25/19 13:27 BP 152/100 H 10/25/19 13:27 Pulse Ox 96 10/25/19 08:31 ENMT Mouth: no TMJ abnormality and no dentition abnormality Thyromental Distance: > or= 3.5 Finger Breadths Mallampati Class: I Neck neck extension not limited Respiratory normal respiratory effort; no respiratory distress Auscultation: lungs clear to auscultation bilaterally Cardiovascular Rate/Rhythm: regular rate and regular rhythm Neurologic moves all extremities Psychiatric Orientation: alert and oriented x 3 Testing Laboratory Results 10/24/19 22:03 10/24/19 23:01 Urine Color Yellow 10/24/19 23:55 Urine Appearance Clear (Clear) 10/24/19 23:55 Urine pH 5.5 (4.5-7.5) 10/24/19 23:55 Ur Specific [place] 1.031 (1.000-1.030) H 10/24/19 23:55 Urine Protein Negative (Negative) 10/24/19 23:55 Urine Glucose (UA) Negative (Negative) 10/24/19 23:55 Urine Ketones Negative (Negative) 10/24/19 23:55 Urine Nitrite Negative (Negative) 10/24/19 23:55 Ur Leukocyte Esterase Trace (Negative) H 10/24/19 23:55 Urine WBC (Auto) 5-10 /hpf (0-5) H 10/24/19 23:55 Urine RBC (Auto) 0-4 /hpf (0-4) 10/24/19 23:55 U Hyaline Cast (Auto) 1-5 /lpf (0-5) 10/24/19 23:55 U Epithel Cells (Auto) 5-10 /lpf (0-5) H 10/24/19 23:55 Urine Bacteria (Auto) Negative (Negative) 10/24/19 23:55
[2019-10-25] MEDS ORDERED: ONDANSETRON INJ 2 MG/ML 2 ML VIAL ONE (14:59)
[2019-10-25] MEDS ORDERED: DEXAMETHASONE SOD INJ 4 MG/ML VIAL ONE (14:59)
[2019-10-25] MEDS ORDERED: LIDOCAINE HCL 2% 2 ML VIAL/AMP(20MG/ML) INFIL ONE (14:59)
[2019-10-25] MEDS ORDERED: PROPOFOL IV EMULSION 10 MG/ML 20 ML VIAL IV ONE (14:59)
[2019-10-25] MEDS ORDERED: IOTHALAMATE MEGLUMINE II 17.2% 250 ML VIAL ONE (15:06)
--- NOTE | 2019-10-25 15:31 | Operative Report ---
[facility] Post Operative Report Pre & Post Diagnosis Ureteral Stone Same with distal stricture Operation Date: 10/25/19 08:00 <No data on this case meets the specified criteria> I identified the patient and participated in the time-out.: Yes Procedure Cystoscopy with right ureteroscopy and laser lithotripsy, stone basket extraction, ureteral dilation, retrograde pyelogram, and stent placement. Operation Date: 10/25/19 08:00 <No data on this case meets the specified criteria> Surgeon Fernando Lau, II, DO Soft Drink Powder Mixer None Estimated Blood Loss 1 Findings Consistent with Post-Op Diagnosis Distal Stricture dilated. Stones destroyed to dust and small fragments and larger fragments removed. Specimens Stone Fragments Drains 6 Fr Multilength Anesthesia Type General Complications none Disposition Disposition: Recovery Room Indications Patient with bothersome stones. Risks and benefits discussed at length. Description of Procedure Patient was consented and brought back to the operating room. Patient was placed under anesthesia in the supine position and moved to the dorsal lithotomy position. Patient was prepped and draped in the regular sterile fashion. A time out was completed. A 30degree Cystoscope was placed into the bladder and the entire bladder was examined. The UO's were identified. The UO was cannulized with a catheter and a retrograde pyelogram was completed. A wire was then placed. The Rigid ureteroscope was taken into the ureter. The larger stone was found impacted into a stricture in the distal ureter. The stone was destroyed with the laser fiber and pulverized to dust and small fragments. The stricture was then dilated. The stones behind stricture were then fragmented and dusted. Larger fragments were grasped and removed and sent for analysis. The entire area was once again examined. No residual large fragments or areas of concern were noted. The scope was slowly removed with the wire left in place. Contrast was placed through the scope for a pyelogram to assist in stent placement. The entire ureter was examined as the scope was slowly removed. No obstructions or other areas of concern were noted. With the wire in place, a 6 Fr Double J stent was placed. It was confirmed with fluoroscopy. With the stent in place, the bladder was emptied. The scope was removed. The patient was cleaned, aroused from anesthesia, and transferred to the pacu in stable condition having tolerated the procedure well with no complications. I was present and participated in all aspects of the procedure. The patient will be monitored in the PACU until transferred. I attest to the content of the Intraoperative Record and any orders documented therein. Any exceptions are noted below.
--- NOTE | 2019-10-25 15:36 | Fluoroscopy Report ---
DENISE roper CLINICAL HISTORY: In OR COMPARISON STUDY: CT scan dated 10/24/2019 FLUOROSCOPY TIME: 39 seconds. NUMBER OF FLUOROSCOPIC IMAGES: 3 FINDINGS: 3 intraoperative fluoroscopic spot images reveal placement of a double pigtail right-sided nephroureteral stent. There is no significant right-sided hydronephrosis. The technologist notes that laser lithotripsy was performed. IMPRESSION: Fluoroscopic spot images obtained during placement of a right-sided nephroureteral stent ACT 112: Negative or not required by law. Electronically signed by: Jesse Madison M.D. 10/25/2019 3:35 PM [facility]
--- NOTE | 2019-10-25 16:12 | Anesthesiology Progress Note ---
Date of Service October 25, 2019 Anesthesia Post Procedure Vital Signs Vital Signs: Temp Pulse Pulse Pulse Resp BP BP 10/25/19 16:00 96 H 12 145/92 H 10/25/19 15:50 96.8 F L 104 H 14 136/89 10/25/19 13:27 98.6 F 90 20 152/100 H 10/25/19 12:27 146/92 H 10/25/19 08:31 97.9 F 95 H 20 154/90 H 10/25/19 02:30 98.2 F 18 179/114 H 10/25/19 01:31 8 L 165/114 H 10/25/19 01:29 10 L 171/112 H 10/25/19 01:02 16 167/102 H 10/25/19 00:01 16 175/108 H 10/24/19 23:55 14 166/126 H 10/24/19 23:31 14 175/116 H 10/24/19 23:01 99 H 12 173/107 H 10/24/19 22:31 92 H 12 182/112 H 10/24/19 22:19 85 12 176/114 H 10/24/19 20:18 98.6 F 121 H 20 178/101 H Pulse Ox 10/25/19 16:00 98 10/25/19 15:50 98 10/25/19 13:27 10/25/19 12:27 10/25/19 08:31 96 10/25/19 02:30 94 10/25/19 01:31 96 10/25/19 01:29 97 10/25/19 01:02 96 10/25/19 00:01 97 10/24/19 23:55 99 10/24/19 23:31 98 10/24/19 23:01 98 10/24/19 22:31 98 10/24/19 22:19 97 10/24/19 20:18 99 Pain Intensity Abdomen: Pain Intensity: 4 Transfer of Care Handoff Completed per policy Notes Mental Status: alert / awake / arousable and participated in evaluation Patient Amnestic to Procedure: Yes Nausea / Vomiting: adequately controlled Pain: adequately controlled Airway Patency, RR, SpO2: stable & adequate BP & HR: stable & adequate Hydration State: stable & adequate Anesthetic Complications: no major complications apparent and Pt Satisfied with anesthetic care
[2019-10-25] MEDS ORDERED: CEFAZOLIN 2000MG 2,000 MG/15 ML SYR IV ONE (16:27)
[2019-10-25] MEDS: MOMETASONE/FORMOTEROL 200MCG/5MCG INH SCH (17:25)
[2019-10-25 18:36] LABS: Calcium 9.2 mg/dl (8.5-10.1); Creatinine Clr Calc Pharmacy 69.4 ml/min; Est GFR (African American) 70.6; Est GFR (Non-African American) 60.9; Potassium 4.4 mmol/L (3.5-5.1)
[2019-10-25] MEDS: MONTELUKAST SODIUM 10 MG TABLET PO SCH (20:51)
[2019-10-25] MEDS: DULOXETINE HCL 30 MG CAP PO SCH (20:51)
[2019-10-25] MEDS ORDERED: ZOLPIDEM 12.5 MG PO SCH (21:00)
[2019-10-25] MEDS ORDERED: TAMSULOSIN HCL 0.4 MG CAP PO SCH (21:00)
--- NOTE | 2019-10-25 22:21 | Electrocardiogram Report ---
Test Reason : Blood Pressure : / mmHG Vent. Rate : 094 BPM Atrial Rate : 094 BPM P-R Int : 148 ms QRS Dur : 084 ms QT Int : 338 ms P-R-T Axes : 067 048 049 degrees QTc Int : 422 ms Normal sinus rhythm Normal ECG When compared with ECG of 29-JUL-2016 19:49, No significant change was found Confirmed by Asaf Bernard ([id number]) on 10/25/2019 10:21:41 PM Referred By: REFERRED SELF Confirmed By:Asaf Bernard
[2019-10-25] MEDS: ZOLPIDEM TARTRATE 5 MG TAB PO SCH (22:22)
[2019-10-26] MEDS: SODIUM CHLORIDE 0.9% 1000ML 1,000 ML IV SCH ×4 (02:44→20:49)
[2019-10-26] MEDS: MoRPHine SULFATE 4 MG/ML 1 ML CARP\\VIAL IV PRN ×3 (04:07→14:29)
[2019-10-26 05:59] LABS: Basophils # (auto) 0.01 K/uL (0-0.2); Basophils % (auto) 0.1 %; Eosinophils # (auto) 0.01 K/uL (0-0.5); Eosinophils % (auto) 0.1 %; Hematocrit (blood only) 35.4 % (42-52); Hemoglobin 12.4 g/dL (14.0-18.0); Immature Granulocytes # (auto) 0.04 K/uL (0.00-0.02); Immature Granulocytes % (auto) 0.4 %; Lymphocytes % (auto) 15.6 %; Mean Corpuscular Hemoglobin 32.4 pg (25-34); Mean Corpuscular Volume 92.4 fL (80-100); Mean Platelet Volume 8.8 fL (7.4-10.4); Monocytes # (auto) 0.73 K/uL (0.11-0.59); Monocytes % (auto) 7.6 %; Neutrophils % (auto) 76.2 %; Platelet Count 329 K/uL (130-400); RDW Coefficient of Variation 13.4 % (11.5-14.5); RDW Standard Deviation 44.7 fL (36.4-46.3); Red Blood Count 3.83 M/uL (4.7-6.1); White Blood Count 9.59 K/uL (4.8-10.8)
[2019-10-26] MEDS: PRAZOSIN HCL 1 MG CAP PO SCH ×3 (08:35→20:47)
[2019-10-26] MEDS: POLYETHYLENE (MIRALAX) 17 GM PACK PO SCH (08:35)
[2019-10-26] MEDS: BuPROPion SR 100 MG TABCR PO SCH (08:36)
[2019-10-26] MEDS: DULOXETINE HCL 60 MG CAP PO SCH (08:36)
[2019-10-26] MEDS: MOMETASONE/FORMOTEROL 200MCG/5MCG INH SCH (08:37)
[2019-10-26] MEDS: cephALEXin 500 MG CAP PO SCH ×2 (09:26→20:47)
[2019-10-26] MEDS ORDERED: CIPROFLOXACIN 500 MG TAB PO SCH (09:30)
[2019-10-26] MEDS ORDERED: ACETAMINOPHEN 500 MG TAB PO PRN (09:45)
[2019-10-26] MEDS: OXYCODONE/ACETAMINOPHEN 5mg/325mg TAB PO PRN ×2 (10:17→15:33)
--- NOTE | 2019-10-26 14:03 | Hospitalist Progress Note ---
Date of Service October 26, 2019 Assessment & Plan (1) Hydronephrosis concurrent with and due to calculi of kidney and ureter: Mr. Ayala is a 39 yo gentleman with a PMHx of nephrolithiasis requiring lithotripsy and ureteral stent placement presenting to the ED with progressive abdominal pain, found to have a R sided distal uretal non-obstructive stone with associated mild hydronephrosis. 1. BL nephrolithiasis with R hydronephrosis s/p Cystoscopy with lithotripsy - POD1 - keflex 500 mg BID 4 days in setting of cystoscopy - CT abd/pelv: 4 mm nonobstructive stone with mild R hydrureteronephrosis, BL nephrolithiasis - maintenance fluids at 123 ml/hr - morphine 4 mg IV Q6 PRN severe pain, percocet 5/325 PO Q4H moderate pain, tylenol 1000mg PO Q8H mild pain - Zofran PRN for nausea - afebrile, normal WBC, UA negative; 2. Multiple rib fractures - secondary to traumatic fall 2.5 weeks ago - left sided, 6-7th ribs, visualized on rib series from 10/[address] chest on admission - pain control as above 3. Constipation - visualized on KUB from 10/17 - daily miralax, milk of mag scheduled 4. PTSD - co-morbid with anxiety/depression - patient follows with psychiatry - holding Librium while on opioids - continue home dosing of prazosin, Ambien, cymbalta and bupropion 5. Positive UDS - MDMA screen positive on admission - likely from buproprion use Dispo: Med/Surg Diet: regular diet DVT ppx: bilateral SCDs, patient ambulatory Code: Full (2) Calculus of right ureter: (3) Bilateral nephrolithiasis: (4) Multiple rib fractures: (5) Constipation: (6) PTSD (post-traumatic stress disorder): (7) Positive urine drug screen: Admission and Anticipated Discharge Date Admission Date: October 25, 2019 Supervising Physician Co-Signing Physician Notes I personally examined the patient and verified all timmons points of history and exam, discussed case, and agree with decision making with Dr Hooker. abdominal pain, back pain, sweats. doesn't feel like he would do well at home. vitals noted nad heent nc at mmm breathing unlabored no accessory muscles good effort skin no rashes no pallor or icterus ureterolithiasis - now s/p cysto, stenting. stable but still quite symptomatic. work on symptom control, increase activity, home once able. Nasreen/elevated creatinine - due to above (likely more from poor PO intake from sx than from stone/hydronephrosis since that was only unilateral) -- ongoing symptom control, obviously needs to be able to eat/drink Ok to be safe at home. otherwise as above Subjective Woke up this morning feeling okay, however increasing amount of pain and burning with urination as time went on. Attested to new right sided back pain this morning as well. No nausea, vomiting. Did feel feverish and chilly this morning. Review of Systems Constitutional: + fever and + chills; no sweats Respiratory: no cough, no dyspnea and no pain on inspiration Cardiovascular: no chest pain and no edema Gastrointestinal: + abdominal pain; no nausea, no vomiting, no cramping and no diarrhea/loose stools Genitourinary: + dysuria, + flank pain, + genital pain and + testicle pain Physical Exam Physical Exam: General: Alert and oriented x 3 in no acute distress. Patient is well nourished and well kept. HEENT: Normocephalic Atraumatic. Inspection normal. Cranial Nerves 2-12 Gloria sly intact. Nares are clear. Neck is supple. Normal inspection of face. Normal inspection of neck. Neurologic: No deficits on inspection. Baseline for motor function and sensory. Psychologic: Normal affect. Respiratory: Nonlabored. No use of accessory muscles. No tachypnea or dyspnea. Cardiovascular: No tachycardia Skin: Portal and Dry. No rashes or visible lesions. Extremities: Moving without issues. No motor deficits on inspection Lymphatics: No edema Abdomen: Soft Non-distended. No ascites. No rebound or guarding. mild tenderness to palpation of right CVA, anterior abdomen diffusely uncomfortable to palpation Results & Data Results & Data ([facility]) Vital Signs (Past 12 Hours) Vital Signs Temp Pulse Resp BP Pulse Ox 10/26/19 08:07 36.8 C 75 18 137/88 94 10/26/19 03:55 36.6 C 93 H 16 137/81 95 Laboratory Results WBC 9.59 K/uL (4.8-10.8) 10/26/19 05:21 RBC 3.83 M/uL (4.7-6.1) L 10/26/19 05:21 Hgb 12.4 g/dL (14.0-18.0) L 10/26/19 05:21 Hct 35.4 % (42-52) L 10/26/19 05:21 MCV 92.4 fL (80-100) 10/26/19 05:21 MCH 32.4 pg (25-34) 10/26/19 05:21 MCHC 35.0 g/dL (32-36) 10/26/19 05:21 RDW Std Deviation 44.7 fL (36.4-46.3) 10/26/19 05:21 RDW Coeff of Will 13.4 % (11.5-14.5) 10/26/19 05:21 Plt Count 329 K/uL (130-400) 10/26/19 05:21 MPV 8.8 fL (7.4-10.4) 10/26/19 05:21 Immature Gran % (Auto) 0.4 % 10/26/19 05:21 Neut % (Auto) 76.2 % 10/26/19 05:21 Lymph % (Auto) 15.6 % 10/26/19 05:21 Moca % (Auto) 7.6 % 10/26/19 05:21 Eos % (Auto) 0.1 % 10/26/19 05:21 Baso % (Auto) 0.1 % 10/26/19 05:21 Immature Gran # (Auto) 0.04 K/uL (0.00-0.02) H 10/26/19 05:21 Neut # (Auto) 7.30 K/uL (1.4-6.5) H 10/26/19 05:21 Lymph # (Auto) 1.50 K/uL (1.2-3.4) 10/26/19 05:21 Moca # (Auto) 0.73 K/uL (0.11-0.59) H 10/26/19 05:21 Eos # (Auto) 0.01 K/uL (0-0.5) 10/26/19 05:21 Baso # (Auto) 0.01 K/uL (0-0.2) 10/26/19 05:21 Sodium 135 mmol/L (136-145) L 10/25/19 18:01 Potassium 4.4 mmol/L (3.5-5.1) 10/25/19 18:01 Chloride 104 mmol/L (98-107) 10/25/19 18:01 Carbon Dioxide 24 mmol/L (21-32) 10/25/19 18:01 Anion Gap 7.0 (3-11) 10/25/19 18:01 BUN 19 mg/dl (7-18) H 10/25/19 18:01 Creatinine 1.42 mg/dl (0.6-1.4) H 10/25/19 18:01 Est Cr Clr Drug Dosing 69.4 ml/min 10/25/19 18:01 Est GFR ( Amer) 70.6 10/25/19 18:01 Est GFR (Non-Af Amer) 60.9 10/25/19 18:01 BUN/Creatinine Ratio 13.0 (10-20) 10/25/19 18:01 Glucose 113 mg/dl (70-99) H 10/25/19 18:01 Calcium 9.2 mg/dl (8.5-10.1) 10/25/19 18:01 Total Bilirubin 0.6 mg/dl (0.2-1) 10/24/19 22:03 AST 12 U/L (15-37) L 10/24/19 23:01 ALT 40 U/L (12-78) 10/24/19 22:03 Alkaline Phosphatase 149 U/L (45-117) H 10/24/19 22:03 Troponin I < 0.015 ng/ml (0-0.045) 10/24/19 22:03 Total Protein 8.0 gm/dl (6.4-8.2) 10/24/19 22:03 Albumin 4.0 gm/dl (3.4-5.0) 10/24/19 22:03 Globulin 4.0 gm/dl (2.5-4.0) 10/24/19 22:03 Albumin/Globulin Ratio 1.0 (0.9-2) 10/24/19 22:03 Lipase 43 U/L (73-393) L 10/24/19 22:03 Urine Color Yellow 10/24/19 23:55 Urine Appearance Clear (Clear) 10/24/19 23:55 Urine pH 5.5 (4.5-7.5) 10/24/19 23:55 Ur Specific [place] 1.031 (1.000-1.030) H 10/24/19 23:55 Urine Protein Negative (Negative) 10/24/19 23:55 Urine Glucose (UA) Negative (Negative) 10/24/19 23:55 Urine Ketones Negative (Negative) 10/24/19 23:55 Urine Blood Negative (Negative) 10/24/19 23:55 Urine Nitrite Negative (Negative) 10/24/19 23:55 Urine Bilirubin Negative (Negative) 10/24/19 23:55 Urine Urobilinogen Negative (Negative) 10/24/19 23:55 Ur Leukocyte Esterase Trace (Negative) H 10/24/19 23:55 Urine WBC (Auto) 5-10 /hpf (0-5) H 10/24/19 23:55 Urine RBC (Auto) 0-4 /hpf (0-4) 10/24/19 23:55 U Hyaline Cast (Auto) 1-5 /lpf (0-5) 10/24/19 23:55 U Epithel Cells (Auto) 5-10 /lpf (0-5) H 10/24/19 23:55 Urine Bacteria (Auto) Negative (Negative) 10/24/19 23:55 Urine Opiates Screen Pos (Neg) H 10/24/19 23:55 Ur Methadone, Qual Neg (Neg) 10/24/19 23:55 Urine Barbiturates Neg (Neg) 10/24/19 23:55 Ur Phencyclidine (PCP) Neg (Neg) 10/24/19 23:55 U Amphetamin/Meth Scrn Neg (Neg) 10/24/19 23:55 MDMA (Ecstasy) Screen Pos (Neg) H 10/24/19 23:55 U Benzodiazepines Scrn Pos (Neg) H 10/24/19 23:55 Ur Cocaine Metabolite Neg (Neg) 10/24/19 23:55 U Marijuana (THC) Screen Neg (Neg) 10/24/19 23:55 Resident Activity Tracking Resident Involvement: Resident Care Provided Care Provided: Adult Hospital Medicine (1) Multiple rib fractures Encounter type: sequela Fracture type: closed Laterality: left Qualified Code(s): S22.42XS - Multiple fractures of ribs, left side, sequela
[2019-10-26] MEDS ORDERED: MoRPHine SULFATE 4 MG/ML 1 ML CARP\\VIAL IV PRN (16:35)
[2019-10-26] MEDS ORDERED: ACETAMINOPHEN 500 MG TAB PO SCH (16:45)
[2019-10-26] MEDS ORDERED: OXYCODONE/ACETAMINOPHEN 5mg/325mg TAB PO SCH (16:45)
--- NOTE | 2019-10-26 17:04 | Billing Data ---
Date of Service October 26, 2019 Coding Level of Care Code 67904 Subseq Hosp Care Lvl 2
[2019-10-26] MEDS: OXYCODONE HCL IR 5 MG TAB (IMMEDIATE RELEASE) PO SCH ×2 (20:48→23:34)
[2019-10-26] MEDS: DULOXETINE HCL 30 MG CAP PO SCH (20:48)
[2019-10-26] MEDS: MONTELUKAST SODIUM 10 MG TABLET PO SCH (20:48)
[2019-10-26] MEDS: ZOLPIDEM TARTRATE 5 MG TAB PO SCH (22:02)
[2019-10-26] MEDS: ACETAMINOPHEN 500 MG TAB PO SCH (22:02)
[2019-10-27] MEDS: SODIUM CHLORIDE 0.9% 1000ML 1,000 ML IV SCH (04:43)
[2019-10-27] MEDS: OXYCODONE HCL IR 5 MG TAB (IMMEDIATE RELEASE) PO SCH ×2 (05:31→09:08)
[2019-10-27 05:49] LABS: Basophils # (auto) 0.02 K/uL (0-0.2); Basophils % (auto) 0.3 %; Eosinophils # (auto) 0.13 K/uL (0-0.5); Eosinophils % (auto) 1.7 %; Hematocrit (blood only) 35.5 % (42-52); Immature Granulocytes # (auto) 0.04 K/uL (0.00-0.02); Immature Granulocytes % (auto) 0.5 %; Lymphocytes # (auto) 2.72 K/uL (1.2-3.4); Lymphocytes % (auto) 36.3 %; Mean Corpuscular Hemoglobin 32.1 pg (25-34); Mean Corpuscular Hgb Conc 33.8 g/dL (32-36); Mean Corpuscular Volume 94.9 fL (80-100); Mean Platelet Volume 8.5 fL (7.4-10.4); Monocytes # (auto) 0.64 K/uL (0.11-0.59); Monocytes % (auto) 8.5 %; Neutrophils # (auto) 3.94 K/uL (1.4-6.5); Neutrophils % (auto) 52.7 %; Platelet Count 278 K/uL (130-400); RDW Coefficient of Variation 13.3 % (11.5-14.5); RDW Standard Deviation 46.1 fL (36.4-46.3); Red Blood Count 3.74 M/uL (4.7-6.1); White Blood Count 7.49 K/uL (4.8-10.8)
[2019-10-27] MEDS: ACETAMINOPHEN 500 MG TAB PO SCH (05:59)
[2019-10-27 06:19] LABS: BUN Creatinine Ratio 15.6 (10-20); Calcium 8.3 mg/dl (8.5-10.1); Creatinine Clr Calc Pharmacy 79.4 ml/min; Est GFR (African American) 83.2; Est GFR (Non-African American) 71.8
[2019-10-27] MEDS ORDERED: OXYCODONE HCL IR 5 MG TAB (IMMEDIATE RELEASE) PO PRN (09:03)
[2019-10-27 09:15] LABS: 7-Aminoclonaz, Confirm NEGATIVE ng/mL (<25); Codeine Urine NEGATIVE ng/mL (<50); Hydro-Alp Ur, GC/MS NEGATIVE ng/mL (<25); Hydrocodone Urine 688 ng/mL (<50); Hydromor Urine 150 ng/mL (<50); Hydroxyethylflurazepam, Conf NEGATIVE ng/mL (<50); Hydroxymidazolam Ur, GC/MS NEGATIVE ng/mL (<50); Hydroxytriazolam NEGATIVE ng/mL (<50); Lorazepam, Ur GC/MS NEGATIVE ng/mL (<50); MDA negative; MDEA negative; MDMA (Ecstasy) Urine, Confirm negative; Morphine Urine NEGATIVE ng/mL (<50); Nordiazepam, Confirm NEGATIVE ng/mL (<50); Norhydrocodone Conf Ur 1580 ng/mL (<50); Noroxycodone Urine NEGATIVE ng/mL (<50); Oxazepam Ur, GC/MS 1900 ng/mL (<50); Oxycodone Urine NEGATIVE ng/mL (<50); Oxymorph Urine NEGATIVE ng/mL (<50); Temazepam, Confirm NEGATIVE ng/mL (<50)
[2019-10-27] MEDS: DULOXETINE HCL 60 MG CAP PO SCH (09:15)
[2019-10-27] MEDS: MOMETASONE/FORMOTEROL 200MCG/5MCG INH SCH (09:15)
[2019-10-27] MEDS: BuPROPion SR 100 MG TABCR PO SCH (09:16)
[2019-10-27] MEDS: PRAZOSIN HCL 1 MG CAP PO SCH ×2 (09:16→12:08)
[2019-10-27] MEDS: cephALEXin 500 MG CAP PO SCH (09:16)
[2019-10-27] MEDS: POLYETHYLENE (MIRALAX) 17 GM PACK PO SCH (09:21)
--- NOTE | 2019-10-27 09:34 | Discharge Summary ---
Date of Service October 27, 2019 Admission HPI Per Admitting Provider Yogi is a 39 yo male with a PMHx of nephrolithiasis s/p lithotripsy, cystoscopy and ureteral stent placement (twelve years ago) who presents to the ED with increasing right sided flank pain. Of note, he was seen by his PCP on Friday, 10/17 at which time a KUB was ordered and showed several left sided kidney stones. His PCP gave him a small amount of tramadol and Vicodin and started him on Flomax, however he came to the ED when his pain requirement continued to increase despite use of these medications. Prior to presentation, he also was experiencing chills, sweats and nausea. Mr. Ayala endorses a strong, positive family history of kidney stones. As an aside, Mr. Ayala was also complaining of left sided chest pain at the time of his visit with his PCP on 10/17, and in the setting of a preceding traumatic fall, a CXR was ordered and showed 6th-7th rib fractures on the left side. Mr. Ayala reports continued discomfort at the site of his known rib fractures on the left chest wall. His PMHx is also significant for PTSD - within the past 3 years he has lost 7 of his family members, including his father. Mr. Ayala recounts the trauma of finding his father's body. He is seeing a psychiatrist, who is managing his Librium, Prazosin, Cymbalta and bupropion. Mr. Ayala stopped his Librium on Friday, 10/17 when he started taking the opioids. ED Course: WBC normal. Cr elevated to 1.52. UA showing trace LE and 5-10 WBCs, neg bacteria. EKG normal. CT Chest showing left sided rib fractures, pending final read. CT abdomen and pelvis showing multiple right sided ureteral stones, largest measuring 4mm, characterized as non-obstructive, with mild hydronephrosis and multiple left sided kidney stones, largest 4mm, also non- obstructing. Final read pending. He was given 1 dose of Toradol 30mg, IV, Morphine 6mg, IV, Zofran 4mg, IV, and 2 liters of IV normal saline. Admission Exam Per Admitting Provider Constitutional: WD/WN, vitals as above + acute distress (secondary to pain) Eyes: + scleral abnormality ENMT: external ear and nose normal, oropharynx normal Neck: normal visual inspection and trachea midline Respiratory: normal respiratory effort, lungs clear to auscultation Auscultation: + wheezes (faint expiratory wheeze on right lower lobe) Cardiovascular: RRR, no murmur, no edema Extremities: + pedal edema (trace on R LE) Chest (Breasts): Additional Comments: + chest wall tender to light palpation on Left side Gastrointestinal (Abdomen): Inspection/Auscultation: + abdomen distended and normal bowel sounds Percussion/Palpation: + abdomen tender (suprapubic area) and + abdomen firm; no guarding No CVA tenderness bilaterally Skin: no rashes, warm and dry Psychiatric: A+Ox3, euthymic affect Principal Diagnosis ureterolithiasis Discharge Exam Constitutional cooperative; no acute distress and not ill appearing Neck normal visual inspection Respiratory normal respiratory effort and able to speak in complete sentences; no respiratory distress, no labored breathing, no retractions, no cough and no audible wheezes Auscultation: lungs clear to auscultation bilaterally; no crackles, no rales, no rhonchi and no wheezes Cardiovascular Rate/Rhythm: regular rate and regular rhythm Heart Sounds: normal S1 and normal S2; no gallop, no murmur and no cardiac rub Vessels: posterior tibial pulses present Extremities: no pedal edema and no edema Gastrointestinal (Abdomen) Inspection/Auscultation: abdomen normal to inspection and normal bowel sounds; abdomen not distended Percussion/Palpation: abdomen soft; abdomen nontender, no guarding, abdomen not rigid and no abdominal mass Discharge Data Allergies Allergy/AdvReac Type Severity Reaction Status Date / Time animal dander Allergy Severe ASTHMA Verified 10/24/19 21:26 mold Allergy Severe ASTHMA Verified 10/24/19 21:26 pollen extracts Allergy Severe ASTHMA Verified 10/24/19 21:26 No Known Drug Allergies Allergy Unknown . Verified 10/24/19 21:26 Consultations 10/24/19 23:55 ED Decision to Admit Stat 10/25/19 02:34 Consult Urology Routine Procedures Performed Operation Date: 10/25/19 08:00 Actual Procedures p Cystoscopy, Right Ureteroscopy, Right Laser Lithotripsy, stone basket extraction, reteral dilation - Fernando Lau, Ordered Studies 10/24/19 21:35 CT abd pelvis wo con Urgent CT angio chest PE protocol Urgent 10/25/19 [place] retrograde includes kub Routine Hospital Course (1) Hydronephrosis concurrent with and due to calculi of kidney and ureter: Mr. Ayala is a 39 yo gentleman with a PMHx of nephrolithiasis requiring lithotripsy and ureteral stent placement who was admitted to the hospital for intractable pain secondary to repeat nephrolithiasis. CT Abd/pelv revealed BL nephrolithiasis with a 4 mm nonobstructive stone and mild R hydrureteronephrosis. He was evaluated by Urology after admission and taken to the OR for Cystoscopy, lithotripsy, laser stone destruction, and stent placement. His pain was mildly difficult to control even after the procedure, and he was sent home with improving pain control on a scheduled regimen of Oxycodone 5 mg Q4H and Tylenol 1000mg Q8H. He was started on Keflex 500 mg BID after the cystoscopy and sent home with a script for 3 more days of antibiotic coverage for prophylaxis. All other medical conditions managed per home regimens. (2) Calculus of right ureter: (3) Bilateral nephrolithiasis: (4) Multiple rib fractures: (5) Constipation: (6) PTSD (post-traumatic stress disorder): (7) Positive urine drug screen: Total Time Total Time Spent Total Time Spent (In Minutes): <30 Discharge Plan Discharge Items Patient Disposition: Home - Self-Care Reason For Visit: KIDNEY STONE Discharge Diagnosis: nephrolithiasis, cystoscopy s/p stent placement Activity: Resume your previous activity Non-emergency contact: Primary Care Provider and Urologist Call non-emergency contact if: you have any medication questions, your pain is not controlled and your temperature is above 101 Follow-up/Referrals: Fernando Lau DO [Physician] - Chuy Louie [Primary Care Provider] - Diet: Regular Addtl Attending Provider Instructions: You were evaluated in the hospital for kidney stones and abdominal pain. Urology was able to see you and do a cystoscopy with lithotripsy and laser destruction of the largest stone, as well as the stones behind it on the right side. Following the procedure you were placed on Keflex for antibiotic coverage. Continue to take this per the instructions for the next 3 days. Follow up with your primary care physician and urologist as needed. Return to the emergency department if your presenting symptoms return, you have trouble urinating, your pain is uncontrolled. Pending Studies at Discharge: No Stand-Alone Forms: My [facility], Opioid Pain Management, Smoking Cessation Medications and DC Order Prescriptions: New cephalexin 500 mg Capsule 500 mg PO BID 3 Days Qty: 6 RF: 0 oxycodone 5 mg Tablet 5 mg PO Q4H PRN (Reason: pain) Qty: 10 RF: 0 ondansetron HCl [Zofran] 4 mg tablet 4 mg PO Q8H 4 Days Qty: 12 RF: 0 oxycodone 5 mg capsule 5 mg PO Q6H PRN (Reason: pain) Qty: 14 RF: 0 Continued MOMETASONE FUROATE-FORMOTEROL (DULERA 200/5 MCG) 1 AER AER 2 puff Inhalation QAM Qty: 0 RF: 0 bupropion HCl [Wellbutrin SR] 200 mg Tablet Sustained-Release 12 Hr 200 mg PO QAM Qty: 0 RF: 0 ondansetron 8 mg tablet,disintegrating 8 mg translingual UD PRN (Reason: Nausea) RF: 0 zolpidem [Ambien] 5 mg tablet 5 mg PO HS RF: 0 acetaminophen [Tylenol Extra Strength] 500 mg Tablet 1,000 mg PO Q6H PRN (Reason: Pain) RF: 0 ibuprofen 200 mg Tablet 200 - 800 mg PO Q6H PRN (Reason: Pain) RF: 0 chlordiazepoxide HCl 10 mg Capsule 20 mg PO .ON HOLD RF: 0 montelukast [Singulair] 10 mg Tablet 10 mg PO HS RF: 0 albuterol sulfate [Proventil HFA] 90 mcg/actuation Hfa Aerosol Inhaler 1 - 2 inh INHALATION QID PRN (Reason: Shortness Of Breath Or Wheezing) RF: 0 prazosin [Minipress] 2 mg Capsule 2 mg PO BID RF: 0 duloxetine [Cymbalta] 30 mg Capsule,Delayed Release(Dr/Ec) 30 mg PO HS RF: 0 duloxetine [Cymbalta] 60 mg Capsule,Delayed Release(Dr/Ec) 60 mg PO QAM RF: 0 zolpidem [Ambien CR] 12.5 mg Tablet,Ext Release Multiphase 12.5 mg PO HS RF: 0 prazosin 2 mg Capsule 4 mg PO HS RF: 0 diclofenac sodium 75 mg tablet,delayed release (DR/EC) 75 mg PO BID Qty: 60 RF: 0 Discontinued hydrocodone-acetaminophen [[place]] 5-325 mg tablet 1 tab PO Q6 PRN (Reason: Pain) RF: 0 Discharge Orders: Discharge Order (Routine); Ordered 10/27/19 Ordered By: Juliet Leong/Other Patient Handouts: Kidney Stones Prevent Admission Data Admit Date/Time: 10/25/19 01:15 Attending Provider: Gabriel Frey Admit Provider: Sheryl Huerta Primary Care Provider: Chuy Louie Other Providers: Juliet Hooker ; Susi Sherman ; Fernando Lau Other Interventions: Discharge Summary Assessment (RN) Last Done: 10/27/19 12:13 DC Date/Time DO NOT enter until pt leaves facility: 10/27/19 13:52 Supervising Physician Co-Signing Physician Notes I personally examined the patient and verified all timmons points of history and exam, discussed case, and agree with decision making with Dr Hooker. still with pain but doing well enough to go home. vitals noted nad heent nc at mmm breathing unlabored no accessory muscles good effort skin no rashes no pallor or icterus ureterolithiasis - now s/p cysto, stenting. stable and sx have improved - OK to go home. pain control PO, outpt f/u. Nasreen/elevated creatinine - due to above (likely more from poor PO intake from sx than from stone/hydronephrosis since that was only unilateral) -- improved. ou tpt f/u otherwise as above Resident Activity Tracking Resident Involvement: Resident Care Provided Care Provided: Adult Hospital Medicine
--- NOTE | 2019-10-27 19:47 | Billing Data ---
Date of Service October 27, 2019 Coding Level of Care Code D/C Day Management <30 mins
[2019-10-30 23:50] LABS: Component 2 DNR; Source RIGHT URETERAL STONE
--- NOTE | 2019-11-02 16:33 | Coding Query ---
CODING QUERY To promote full compliance with coding requirements relating to patient care, provider participation is requested in all cases of veterinary laboratory technician uncertainty. Please assist us with the question(s) below: Please clarify the meaning of BETTINA. BETTINA is not a valid abbreviation. Thank you. ( x ) Acute Kidney Injury ( ) Acute Kidney Insufficiency ( ) Other (Specify): Principal Diagnosis: "that condition established after study, to be chiefly responsible for occasioning the admission of the patient to the hospital for care." Co-Existing Principal Diagnosis: "when two or more diagnoses equally meet the criteria for principal diagnosis as determined by the circumstances of admission, diagnostic work up, and/or therapy provided, and the Alphabetic Index, Tabular List, or another coding guideline does not provide sequencing direction, any one of the diagnoses may be sequenced first." "When the physician has documented what appears to be a current diagnosis in the body of the record, but has not included the diagnosis in the final diagnostic statement, the physician should be asked whether the diagnosis should be added." (Source Coding Clinic 2 QTR90. p3-4) TRINI
== END 2019-10-27 13:52 | disposition home or self-care (01) | DRG 660 ==
LOC: ED 20:16 → SUATTDRO 10-25 01:15 → 3N 10-25 01:15

== ENCOUNTER 2019-11-15 00:34 | Observation (INO) ==
[2019-11-15] MEDS ORDERED: SODIUM CHLORIDE 0.9% 1000ML 1,000 ML IV ONE (00:51)
[2019-11-15] MEDS ORDERED: LORazepam 2 MG/4 ML VIAL IV STA (00:51)
--- NOTE | 2019-11-15 00:55 | Emergency Department Note ---
Impression & Plan Seizure, Serotonin syndrome ED Provider Note Name: CONCHITA ANDREWS Age: 39 Sex: M Arrives Via: Ambulance Informant: Patient, ED Provider: Jim Sorensen MD Chief Complaint: Seizure Impression: Seizure Serotonin Syndrome Medical Decision Makin yr old male bought in by EMS after seizure initially preceded by episode of agitation/confusion. He has history of PTSD along with recent need for lithotripsy and is on several meds for these. He arrives slightly confused, dehydrated appearing, mildly agitated with hypertension and tachycardia. Presum ptive diagnosis of serotonin syndrome likely put over by benadryl use and increased medications. He was given IV fluids and ativan with excellent improvement in vitals and patient sleeping comfortably. CT head negative. Labs unremarkable. Hospitalist consulted given need for further management and monitoring of this patient. He does not have exam like meningitis nor fevers, wbc elevation and I feel LP no indicated this time. No evidence cardiac in origin and unlikely stroke as primary cause of this event. Tox screen negative and slight tylenol in system consistent with tylenol PM use this evening. He has a moderate left anterior knee swelling consistent with likely bursitis with recent trauma. There is no erythema nor significant TTP to suggest infectious at this time. Prior Medical Record and Triage/Nursing Notes reviewed by Me Additional history obtained from , hospitalist Differentials:Epilepsy, infection, hypoglycemia, electrolyte abnormalities, cardiac sources, intracerebral event, trauma, toxicologic, neurologic, syncope, as well as other pathologies. Vital Signs: reviewed and remarkable for htn, tachy Interventions: saline lock, ativan 2mg IV, nss bolus 1 L IV Labs:Reviewed and remarkable for no significant abnormalities Imaging:[facility] Radiologist interpretation reviewed by me: CT head cervical spine negative acute findings X ray results are stated below per my interpretation: Chest: 1 view: No infiltrate, no effusion, normal cardiac border. Knee: Left 2 view: no fracture no dislocation EKG:Per My Interpretation: Indication Seizure: NSR 97 bpm, qtc 436. No Ectopy. No Ischemia. Compared to EKG 10/24/19, no significant changes. Cardiac/Tele Monitoring: Cardiac Monitoring: An Order was placed for continuous cardiac monitoring. The monitor shows a rate of 80 with a normal sinus rhythm. Consults:Dr Lane VIDALES Hospitalist Plan: Disposition:Hospitalization. Condition: Good Blood pressure:Elevated - Referred to PCP - Patterson to be Situational. Prescriptions:None PDMP: n/a History of Present Illness:39 / M arrives for evaluation of seizure. Patient with history of depression/ptsd, renal colic who had a fall 2 months ago resulting in right ankle fracture as well as several rib fractures. He has been following with Uro for renal stone issues. Patient apparently was doing Ok last few days until two nights ago. For several hours he was acting "off" and somewhat confused, shaky. Today he was apparently very thristy but not drinking much and notes he wasn't quite his normal self. This evening he went to go to bed but instead had to go shoot a skunk in the back yard. notes he was acting more and more off after this. He was agitated, anxious and tremulous. He said he felt like dieing and told his to call 911. By the time EMS arrived he had a several minute seizure which broke on its own. He has a prolonged post ictal period before slowly waking up. Given no medications prior to arrival. Patient without history of seizures. He has no family histor of seizures. No recent head injury nor trauma, though admits he fell off roof 2 months ago without head injury. He denies suicidal ideation but states he felt like dieing earlier in the evening. notes recent medication changes including adding Tylenol PM at nights. He is also on Cymbalta, Prazosin, Wellbutrin, oxybutynin, ambien, along with Oxy IR and albuterol/singulair. Patient denies overdose attempt, alcohol use. He admits alcohol use last in July and he was on Librium for a few months afterwards but non in last few weeks. ROS: See above HPI for pertinent positives & negatives. A total of 10 systems reviewed and were otherwise negative. Past Medical History:PTSD, Renal Stones, Asthma, GERD Past Surgical History:Tonsils, right shoulder, lithotripsy Family History:None Social History:Lives with Home Medications:See Below Allergies:mold, animal dander, pollen Vitals:Blood Pressure: 178/97, Pulse 98, RR 15, T 36.9C, O2 99% on RA Physical Exam: GENERAL: Patient is agitated/anxious appearing and in moderate distress. Soft, tangential, muffled, speech. Appears mildly confused. Dehydrated appearing EYES: No scleral icterus, unremarkable pupils. ENT: Mucous membranes dry, no nasal congestion. NECK: No masses appreciated, nomeningismus, trachea is midline. RESPIRATORY: No dyspnea. Clear to auscultation and equal bilaterally. No wheeze, no rhonchi. CARDIOVASCULAR: Tachy.No murmurs, rubs, gallops appreciated. GASTROINTESTINAL: Abdomen soft, non-tender, no peritonitis.Bowel sounds positive.No masses appreciated. BACK: No midline tenderness, no CVA tenderness EXTREMITIES: Normal motion all extremities, no cyanosis, no edema. NEUROLOGIC: Alert and oriented, no acute motor or sensory deficits, no focal weakness, cranial nerves grossly intact. SKIN: No rash, no jaundice, no diaphoresis. PSYCH: A bit tangential, pressured speech, muffled, admits depression, denies suicidal ideation GCS: 15 ED Course: Times/Reassessments: Multiple, much improved with ativan/iv fluids and sleeping Jim Sorensen MD Past Med/Surg History Social History Preferred Language: Spanish Communication Ability: Effective Visual Impairment: No Limitations Glaze Sprayer Required: No Beliefs That Will Affect Care: None Current Living Situation: Spouse Other Information That Helps Us Care for You: No Feels Safe at Home: Yes Safety Concerns: Feels Safe At This Time Smoking Status: Never smoker Second Hand Exposure: No ; Hx Alcohol Use: No Hx Substance Use: No Allergies Allergies Allergy/AdvReac Type Severity Reaction Status Date / Time animal dander Allergy Severe ASTHMA Verified 11/15/19 00:54 mold Allergy Severe ASTHMA Verified 11/15/19 00:54 pollen extracts Allergy Severe ASTHMA Verified 11/15/19 00:54 No Known Drug Allergies Allergy Unknown . Verified 11/15/19 00:54 Home Meds Home Medications Medication Instructions Recorded Confirmed bupropion HCl [Wellbutrin SR] 200 mg PO QAM #0 tab 07/29/16 11/15/19 albuterol sulfate [Proventil HFA] 2 inh INHALATION Q4 PRN 08/20/19 11/15/19 chlordiazepoxide HCl 20 mg PO TID PRN 08/20/19 11/15/19 duloxetine [Cymbalta] 30 mg PO HS 08/20/19 11/15/19 duloxetine [Cymbalta] 60 mg PO QAM 08/20/19 11/15/19 montelukast [Singulair] 10 mg PO HS 08/20/19 11/15/19 prazosin [Minipress] 2 mg PO BID 08/20/19 11/15/19 zolpidem [Ambien CR] 12.5 mg PO HS 08/20/19 11/15/19 prazosin 4 mg PO HS 08/23/19 11/15/19 acetaminophen [Tylenol Extra 1,000 mg PO Q6H PRN 10/24/19 11/15/19 Strength] ibuprofen 200 - 800 mg PO Q6H PRN 10/24/19 11/15/19 ondansetron 8 mg TRANSLINGUAL UD PRN 10/24/19 11/15/19 zolpidem [Ambien] 5 mg PO HS 10/24/19 11/15/19 mometasone-formoterol [Dulera] 2 puff INHALATION QAM 11/15/19 11/15/19 Previous Rx's Medication Instructions Recorded oxycodone 5 mg PO Q6H PRN #14 cap 10/27/19 oxybutynin chloride 5 mg tablet 5 mg PO BID PRN #20 tab 10/29/19 phenazopyridine 100 mg tablet 100 mg PO TID PRN #10 tab 10/29/19 oxycodone-acetaminophen 5 mg-325 1 tab PO Q8H PRN #14 tab 11/03/19 mg tablet Results & Data (ED) Vital Signs Vital Signs - 24 hr 11/15/19 00:34 11/15/19 01:00 11/15/19 02:00 Temperature 36.9 C Temperature Source Oral Pulse Rate 98 H 94 H 84 Pulse Rate [Bilateral Apical] Respiratory Rate 15 12 17 Respiratory Depth Normal Blood Pressure 178/97 H 153/98 H 136/93 Blood Pressure [Left Arm] Blood Pressure Mean 124 101 104 Blood Pressure Mean [Left Arm] Pulse Oximetry 99 97 96 Oxygen Delivery Method Room Air Sepsis Recent Fever Within 48 Hours No Sepsis New/Unexplained Change in Mental Status Yes Sepsis Action Taken by Nursing No Action Required 11/15/19 02:30 11/15/19 03:01 11/15/19 03:34 Temperature Temperature Source Pulse Rate 85 Pulse Rate [Bilateral Apical] 94 H 78 Respiratory Rate 17 20 20 Respiratory Depth Blood Pressure 115/76 Blood Pressure [Left Arm] 104/79 123/93 Blood Pressure Mean 92 Blood Pressure Mean [Left Arm] 87 103 Pulse Oximetry 93 95 94 Oxygen Delivery Method Room Air Room Air Sepsis Recent Fever Within 48 Hours Sepsis New/Unexplained Change in Mental Status Sepsis Action Taken by Nursing Laboratory Data Result diagrams: 11/15/19 01:21 11/15/19 01:21 Lab Results 11/15/19 11/15/19 11/15/19 Range/Units 01:21 01:21 01:21 WBC 11.33 H (4.8-10.8) K/uL RBC 3.93 L (4.7-6.1) M/uL Hgb 12.8 L (14.0-18.0) g/dL Hct 36.3 L (42-52) % MCV 92.4 (80-100) fL MCH 32.6 (25-34) pg MCHC 35.3 (32-36) g/dL RDW Std Deviation 42.6 (36.4-46.3) fL RDW Coeff of Will 12.6 (11.5-14.5) % Plt Count 236 (130-400) K/uL MPV 9.2 (7.4-10.4) fL Immature Gran % (Auto) 0.3 % Neut % (Auto) 70.0 % Lymph % (Auto) 21.2 % [place] % (Auto) 7.2 % Eos % (Auto) 1.1 % Baso % (Auto) 0.2 % Neut # (Auto) 7.93 H (1.4-6.5) K/uL Lymph # (Auto) 2.40 (1.2-3.4) K/uL [place] # (Auto) 0.82 H (0.11-0.59) K/uL Eos # (Auto) 0.13 (0-0.5) K/uL Baso # (Auto) 0.02 (0-0.2) K/uL Immature Gran # (Auto) 0.03 H (0.00-0.02) K/uL Sodium 141 (136-145) mmol/L Potassium 4.0 (3.5-5.1) mmol/L Chloride 109 H (98-107) mmol/L Carbon Dioxide 26 (21-32) mmol/L Anion Gap 6.0 (3-11) BUN 18 (7-18) mg/dl Creatinine 1.17 (0.6-1.4) mg/dl Est Cr Clr Drug Dosing 80.4 ml/min Est GFR ( Amer) 89.2 Est GFR (Non-Af Amer) 77.0 BUN/Creatinine Ratio 15.5 (10-20) Glucose 87 (70-99) mg/dl Calcium 8.6 (8.5-10.1) mg/dl Total Bilirubin 0.3 (0.2-1) mg/dl AST 10 L (15-37) U/L ALT 20 (12-78) U/L Alkaline Phosphatase 109 (45-117) U/L Total Protein 6.4 (6.4-8.2) gm/dl Albumin 3.4 (3.4-5.0) gm/dl Globulin 3.0 (2.5-4.0) gm/dl Albumin/Globulin Ratio 1.1 (0.9-2) TSH 1.290 (0.300-4.500) uIu/ml Urine Color Urine Appearance (Clear) Urine pH (4.5-7.5) Ur Specific [place] (1.000-1.030) Urine Protein (Negative) Urine Glucose (UA) (Negative) Urine Ketones (Negative) Urine Blood (Negative) Urine Nitrite (Negative) Urine Bilirubin (Negative) Urine Urobilinogen (Negative) Ur Leukocyte Esterase (Negative) Salicylates < 1.7 L (2.8-20) mg/dl Urine Opiates Screen (Neg) Ur Methadone, Qual (Neg) Acetaminophen 7 L (10-30) ug/ml Urine Barbiturates (Neg) Ur Phencyclidine (PCP) (Neg) U Amphetamin/Meth Scrn (Neg) MDMA (Ecstasy) Screen (Neg) U Benzodiazepines Scrn (Neg) Ur Cocaine Metabolite (Neg) U Marijuana (THC) Screen (Neg) Ethyl Alcohol mg/dL (0-3) mg/dl Lyme Disease IgG Ab (Negative) Lyme Disease IgM Ab (Negative) 11/15/19 11/15/19 11/15/19 Range/Units 01:21 01:21 01:45 WBC (4.8-10.8) K/uL RBC (4.7-6.1) M/uL Hgb (14.0-18.0) g/dL Hct (42-52) % MCV (80-100) fL MCH (25-34) pg MCHC (32-36) g/dL RDW Std Deviation (36.4-46.3) fL RDW Coeff of Will (11.5-14.5) % Plt Count (130-400) K/uL MPV (7.4-10.4) fL Immature Gran % (Auto) % Neut % (Auto) % Lymph % (Auto) % [place] % (Auto) % Eos % (Auto) % Baso % (Auto) % Neut # (Auto) (1.4-6.5) K/uL Lymph # (Auto) (1.2-3.4) K/uL [place] # (Auto) (0.11-0.59) K/uL Eos # (Auto) (0-0.5) K/uL Baso # (Auto) (0-0.2) K/uL Immature Gran # (Auto) (0.00-0.02) K/uL Sodium (136-145) mmol/L Potassium (3.5-5.1) mmol/L Chloride (98-107) mmol/L Carbon Dioxide (21-32) mmol/L Anion Gap (3-11) BUN (7-18) mg/dl Creatinine (0.6-1.4) mg/dl Est Cr Clr Drug Dosing ml/min Est GFR ( Amer) Est GFR (Non-Af Amer) BUN/Creatinine Ratio (10-20) Glucose (70-99) mg/dl Calcium (8.5-10.1) mg/dl Total Bilirubin (0.2-1) mg/dl AST (15-37) U/L ALT (12-78) U/L Alkaline Phosphatase (45-117) U/L Total Protein (6.4-8.2) gm/dl Albumin (3.4-5.0) gm/dl Globulin (2.5-4.0) gm/dl Albumin/Globulin Ratio (0.9-2) TSH (0.300-4.500) uIu/ml Urine Color Urine Appearance (Clear) Urine pH (4.5-7.5) Ur Specific [place] (1.000-1.030) Urine Protein (Negative) Urine Glucose (UA) (Negative) Urine Ketones (Negative) Urine Blood (Negative) Urine Nitrite (Negative) Urine Bilirubin (Negative) Urine Urobilinogen (Negative) Ur Leukocyte Esterase (Negative) Salicylates (2.8-20) mg/dl Urine Opiates Screen Neg (Neg) Ur Methadone, Qual Neg (Neg) Acetaminophen (10-30) ug/ml Urine Barbiturates Neg (Neg) Ur Phencyclidine (PCP) Neg (Neg) U Amphetamin/Meth Scrn Neg (Neg) MDMA (Ecstasy) Screen Neg (Neg) U Benzodiazepines Scrn Pos H (Neg) Ur Cocaine Metabolite Neg (Neg) U Marijuana (THC) Screen Neg (Neg) Ethyl Alcohol mg/dL < 3.0 (0-3) mg/dl Lyme Disease IgG Ab Negative (Negative) Lyme Disease IgM Ab Negative (Negative) 11/15/19 Range/Units 01:45 WBC (4.8-10.8) K/uL RBC (4.7-6.1) M/uL Hgb (14.0-18.0) g/dL Hct (42-52) % MCV (80-100) fL MCH (25-34) pg MCHC (32-36) g/dL RDW Std Deviation (36.4-46.3) fL RDW Coeff of Will (11.5-14.5) % Plt Count (130-400) K/uL MPV (7.4-10.4) fL Immature Gran % (Auto) % Neut % (Auto) % Lymph % (Auto) % [place] % (Auto) % Eos % (Auto) % Baso % (Auto) % Neut # (Auto) (1.4-6.5) K/uL Lymph # (Auto) (1.2-3.4) K/uL [place] # (Auto) (0.11-0.59) K/uL Eos # (Auto) (0-0.5) K/uL Baso # (Auto) (0-0.2) K/uL Immature Gran # (Auto) (0.00-0.02) K/uL Sodium (136-145) mmol/L Potassium (3.5-5.1) mmol/L Chloride (98-107) mmol/L Carbon Dioxide (21-32) mmol/L Anion Gap (3-11) BUN (7-18) mg/dl Creatinine (0.6-1.4) mg/dl Est Cr Clr Drug Dosing ml/min Est GFR ( Amer) Est GFR (Non-Af Amer) BUN/Creatinine Ratio (10-20) Glucose (70-99) mg/dl Calcium (8.5-10.1) mg/dl Total Bilirubin (0.2-1) mg/dl AST (15-37) U/L ALT (12-78) U/L Alkaline Phosphatase (45-117) U/L Total Protein (6.4-8.2) gm/dl Albumin (3.4-5.0) gm/dl Globulin (2.5-4.0) gm/dl Albumin/Globulin Ratio (0.9-2) TSH (0.300-4.500) uIu/ml Urine Color Yellow Urine Appearance Clear (Clear) Urine pH 6.5 (4.5-7.5) Ur Specific [place] 1.020 (1.000-1.030) Urine Protein Negative (Negative) Urine Glucose (UA) Negative (Negative) Urine Ketones Negative (Negative) Urine Blood Negative (Negative) Urine Nitrite Negative (Negative) Urine Bilirubin Negative (Negative) Urine Urobilinogen Negative (Negative) Ur Leukocyte Esterase Negative (Negative) Salicylates (2.8-20) mg/dl Urine Opiates Screen (Neg) Ur Methadone, Qual (Neg) Acetaminophen (10-30) ug/ml Urine Barbiturates (Neg) Ur Phencyclidine (PCP) (Neg) U Amphetamin/Meth Scrn (Neg) MDMA (Ecstasy) Screen (Neg) U Benzodiazepines Scrn (Neg) Ur Cocaine Metabolite (Neg) U Marijuana (THC) Screen (Neg) Ethyl Alcohol mg/dL (0-3) mg/dl Lyme Disease IgG Ab (Negative) Lyme Disease IgM Ab (Negative) Administered Medications Discontinued Medications Sodium Chloride (Nss 1000ml) 1,000 mls @ 999 mls/hr IV .[id number] ONE Stop: 11/15/19 01:51 Last Infusion: 11/15/19 02:08 Dose: 0 mls/hr Documented by: [id number] Admin: 11/15/19 01:07 Dose: 999 mls/hr Documented by: [id number] Lorazepam (Ativan) 2 mg in 4 mls @ 4 mls/min IV NOW STA Stop: 11/15/19 00:52 Last Admin: 11/15/19 01:07 Dose: 4 mls/min Documented by: [id number] Discharge Plan Visit Data *Final* Discharge Date/Time: 11/15/19 04:18 Chief Complaint: Seizure Stated Complaint: ALTERED MENTAL STATUS/ SEIZURE ED Provider: Jim Sorensen Discharge Problem: Seizure, Serotonin syndrome Patient Disposition: Admitted As Inpatient Discharge Instructions Interventions: ED Discharge Assessment Last Done: 11/15/19 04:18
[2019-11-15 01:34] LABS: Basophils # (auto) 0.02 K/uL (0-0.2); Basophils % (auto) 0.2 %; Eosinophils # (auto) 0.13 K/uL (0-0.5); Eosinophils % (auto) 1.1 %; Hematocrit (blood only) 36.3 % (42-52); Hemoglobin 12.8 g/dL (14.0-18.0); Immature Granulocytes # (auto) 0.03 K/uL (0.00-0.02); Immature Granulocytes % (auto) 0.3 %; Lymphocytes % (auto) 21.2 %; Mean Corpuscular Hemoglobin 32.6 pg (25-34); Mean Corpuscular Hgb Conc 35.3 g/dL (32-36); Mean Corpuscular Volume 92.4 fL (80-100); Mean Platelet Volume 9.2 fL (7.4-10.4); Monocytes # (auto) 0.82 K/uL (0.11-0.59); Monocytes % (auto) 7.2 %; Neutrophils # (auto) 7.93 K/uL (1.4-6.5); Platelet Count 236 K/uL (130-400); RDW Coefficient of Variation 12.6 % (11.5-14.5); RDW Standard Deviation 42.6 fL (36.4-46.3); Red Blood Count 3.93 M/uL (4.7-6.1); White Blood Count 11.33 K/uL (4.8-10.8)
[2019-11-15 01:53] LABS: Appearance Urine Clear (Clear); Bilirubin Urine Negative (Negative); Blood Urine Negative (Negative); Color Urine Yellow; Glucose Urine UA Negative (Negative); Ketones Urine Negative (Negative); Leukocyte Esterase Urine Negative (Negative); Nitrite Urine Negative (Negative); Protein Urine Negative (Negative); Urobilinogen Urine Negative (Negative); pH Urine 6.5 (4.5-7.5)
[2019-11-15 01:54] LABS: Albumin Level 3.4 gm/dl (3.4-5.0); BUN Creatinine Ratio 15.5 (10-20); Calcium 8.6 mg/dl (8.5-10.1); Creatinine Clr Calc Pharmacy 80.4 ml/min; Est GFR (African American) 89.2
[2019-11-15 01:56] LABS: Acetaminophen 7 ug/ml (10-30); Salicylate < 1.7 mg/dl (2.8-20)
[2019-11-15 02:01] LABS: Albumin Globulin Ratio 1.1 (0.9-2); Bilirubin,Total 0.3 mg/dl (0.2-1); Thyroid Stimulating Hormone 1.29 uIu/ml (0.300-4.500); Total Protein 6.4 gm/dl (6.4-8.2)
[2019-11-15 02:16] LABS: Amphetamines+Metham, Urine Neg (Neg); Barbiturates, Urine Neg (Neg); Benzodiazepine, Urine Pos (Neg); Cocaine, Urine Neg (Neg); MDMA (Ecstacy), Urine Neg (Neg); Methadone, Urine Neg (Neg); Opiate, Urine Neg (Neg); Phencyclidine, Urine Neg (Neg)
[2019-11-15 02:34] LABS: Lyme Ab IgG w/WB Rflx Negative (Negative)
[2019-11-15 03:01] LABS: Lyme Ab IgM w/WB Rflx Negative (Negative)
--- NOTE | 2019-11-15 04:35 | History & Physical Report ---
Date of Service November 15, 2019 Assessment & Plan (1) PTSD (post-traumatic stress disorder): 39 yo M with hx PTSD, anxiety, depression, kidney stones admitted for altered mental status and abnormal behavior and new onset seizure activity. 1) Encephalopathy - most likely secondary to drug withdrawal with self titration off buproprion, which may have caused the seizure activity - possible Serotonin Syndrome given multiple drugs on board however no rigidity/clonus, normal BP. See Psychiatric Disorders below. - received 2 mg IV ativan in ED - Neuro consult for new onset seizure activity - EEG awake/drowsy ordered - IV ativan PRN for seizure activity, seizure precautions ordered 2) Psychiatric Disorders - Serotonin Syndrome less likely - brief episode of asymptomatic sinus tach to 150 in ED. BP elevated on arrival, normalized without intervention. Afebrile, no diaphoresis or clonus/rigidity. - Home medications: - Cymbalta 60 mg AM, 30 mg HS - Buproprion 200 mg AM - Prazosin 2 mg BID + Prazosin 4 mg HS - Librium held - Ambien 12.5 mg + 5 mg continued due to risk of seizure and withdrawal if held - psychiatry consult for questionable underlying mood disorder - suicide precautions 3) Tachycardia - will continue to monitor for signs of SVT/aberrant rhythms 4) EILEEN - undiagnosed; patient frequently snores and has had apneic episodes at night - wakes up unrested and tired all day - would benefit from CPAP trial in hospital DVT ppx: not indicated FEN/GI: regular diet Code Status: Full Code Dispo: PCU (2) Altered mental status, unspecified: (3) Seizure: History of Present Illness Patient is a 39-year-old male with a history of kidney stones, PTSD, anxiety and depression was brought to the emergency department by his via ambulance after new onset seizure activity and abnormal behavior at home. History of events taken from as patient was asleep in bed. Past 2 days the patient was noticed to be increasingly agitated and "antsy" and not behaving like himself. noticed that there were 2 separate occasions where he did not even remember her or was unable to remember her name and required hints as to what her name was. He also would get a "glazed look" in his eyes and stare off into space for moments or minutes at a time and be unresponsive to those around him. noted that this lapse in memory has occurred previously approximately 1-1/2 years ago when he was on a different antidepressant medications. The patient had recently discussed with his primary care physician reducing the dosing of the prazosin for PTSD from 4 times a day to 3 times a day and the patient had been doing that but then decided on his own to go back to 4 times a day prazosin and self titrate off of the bupropion from daily to half dose to not taking medication at all. He told his all of this after the fact. states he has been in a better place with his mood in the past 2 weeks compared to the struggles he has had with PTSD and anxiety and depression over the last couple of years. However she does state that he has made some passive comments to her concerning suicidal ideation. These have been more centered around how his medical issues and pain cause an undue burden on her and that she deserves that does not cause her as many problems or that "people should not be praying for him to get better and that she will find someone else instead". She denies him ever making active suicidal comments or creating any sort of plan for having attempted suicide anytime in the past. Note earlier tonight he took his usual dose of Ambien and then had to get up to go shoot a skunk in their backyard which is a common past problem they have. After returning from shooting this, he then abruptly got up again said he had to go make sure that this come could not find a way and then came back into the house tomorrow. After he came back a second time he was leaning against the bed told his that he felt his head was a mass that he "felt like he was going to and that she should call 911". 911 he expressed that he wanted to be outside of the house so she helped him out onto the porch and sat him down after which he started to have seizure activity. She states that all of his limbs were involved however does not remember any pattern to the limb movement. She states that he was unresponsive and not conversant during this time. At some point in the chain of events he also seemed to be paranoid and defensive against the contract management specialist and their neighbor who had come by to help, repeatedly telling them to get away from him. Has a remote history of alcohol abuse for which he had been on Librium. Since August 2019 he has had a number of injuries including an ankle fracture, knee injury, multiple broken ribs, kidney stones, that required various interventions with pain management and narcotic use. Psychiatric medications prior to changes this past week included Wellbutrin SR 200 mg once a day, Cymbalta 60 mg in the morning and 30 mg at night, prazosin 2 mg twice a day and prazosin 4 mg at bedtime, 17.5 mg of Ambien prior to bedtime. Primary Care Provider: Chuy Louie Allergies Allergy/AdvReac Type Severity Reaction Status Date / Time animal dander Allergy Severe ASTHMA Verified 11/15/19 00:54 mold Allergy Severe ASTHMA Verified 11/15/19 00:54 pollen extracts Allergy Severe ASTHMA Verified 11/15/19 00:54 No Known Drug Allergies Allergy Unknown . Verified 11/15/19 00:54 Home Medications Home Medications Medication Instructions Recorded Confirmed Type bupropion HCl [Wellbutrin SR] 200 mg PO QAM #0 tab 07/29/16 11/15/19 History albuterol sulfate [Proventil HFA] 2 inh INHALATION Q4 PRN 08/20/19 11/15/19 History chlordiazepoxide HCl 20 mg PO TID PRN 08/20/19 11/15/19 History duloxetine [Cymbalta] 30 mg PO HS 08/20/19 11/15/19 History duloxetine [Cymbalta] 60 mg PO QAM 08/20/19 11/15/19 History montelukast [Singulair] 10 mg PO HS 08/20/19 11/15/19 History prazosin [Minipress] 2 mg PO BID 08/20/19 11/15/19 History zolpidem [Ambien CR] 12.5 mg PO HS 08/20/19 11/15/19 History prazosin 4 mg PO HS 08/23/19 11/15/19 History acetaminophen [Tylenol Extra 1,000 mg PO Q6H PRN 10/24/19 11/15/19 History Strength] ibuprofen 200 - 800 mg PO Q6H PRN 10/24/19 11/15/19 History ondansetron 8 mg TRANSLINGUAL UD PRN 10/24/19 11/15/19 History zolpidem [Ambien] 5 mg PO HS 10/24/19 11/15/19 History oxycodone 5 mg PO Q6H PRN #14 cap 10/27/19 11/15/19 Rx oxybutynin chloride 5 mg tablet 5 mg PO BID PRN #20 tab 10/29/19 11/15/19 Rx phenazopyridine 100 mg tablet 100 mg PO TID PRN #10 tab 10/29/19 11/15/19 Rx oxycodone-acetaminophen 5 mg-325 1 tab PO Q8H PRN #14 tab 11/03/19 11/15/19 Rx mg tablet mometasone-formoterol [Dulera] 2 puff INHALATION QAM 11/15/19 11/15/19 History Past Med/Surg History Social History Preferred Language: Ethiopian Communication Ability: Effective Visual Impairment: No Limitations Collections Attorney Required: No Beliefs That Will Affect Care: None Current Living Situation: Spouse Other Information That Helps Us Care for You: No Feels Safe at Home: Yes Safety Concerns: Feels Safe At This Time Smoking Status: Never smoker Second Hand Exposure: No ; Hx Alcohol Use: No Hx Substance Use: No Review of Systems Review of Systems: Unobtainable due to reduced consciousness Physical Exam Physical Exam: Constitutional: in no apparent distress, sleeping comfortably in bed. Eyes: dilated pupils reactive to light bilaterally, EOMI, no vertical or horizontal nystagmus Cardiac: tachycardic, regular rhythm, no murmurs, gallops or rubs. Normal S1, S2 Pulm: CTA BL, no wheezes, rhonchi, crackles or rubs, moving air well throughout both lungs Abd: soft, nontender, nondistended, normal bowel sounds, no rebound or guarding Extremities: 2+ peripheral pulses, no edema, supra-patellar swelling over left patella, warm to touch, nontender. Neuro: no focal deficits, able to move all 4 extremities Results & Data Results & Data ([facility]) Vital Signs (Past 12 Hours) Vital Signs Temp Pulse Pulse Resp BP BP Pulse Ox 11/15/19 03:34 78 20 123/93 94 11/15/19 03:01 94 H 20 104/79 95 11/15/19 02:30 85 17 115/76 93 11/15/19 02:00 84 17 136/93 96 11/15/19 01:00 94 H 12 153/98 H 97 11/15/19 00:34 36.9 C 98 H 15 178/97 H 99 Laboratory Results WBC 11.33 K/uL (4.8-10.8) H 11/15/19 01:21 RBC 3.93 M/uL (4.7-6.1) L 11/15/19 01:21 Hgb 12.8 g/dL (14.0-18.0) L 11/15/19 01:21 Hct 36.3 % (42-52) L 11/15/19 01:21 MCV 92.4 fL (80-100) 11/15/19 01:21 MCH 32.6 pg (25-34) 11/15/19 01:21 MCHC 35.3 g/dL (32-36) 11/15/19 01:21 RDW Std Deviation 42.6 fL (36.4-46.3) 11/15/19 01:21 RDW Coeff of Will 12.6 % (11.5-14.5) 11/15/19 01:21 Plt Count 236 K/uL (130-400) 11/15/19 01:21 MPV 9.2 fL (7.4-10.4) 11/15/19 01:21 Immature Gran % (Auto) 0.3 % 11/15/19 01:21 Neut % (Auto) 70.0 % 11/15/19 01:21 Lymph % (Auto) 21.2 % 11/15/19 01:21 [place] % (Auto) 7.2 % 11/15/19 01:21 Eos % (Auto) 1.1 % 11/15/19 01:21 Baso % (Auto) 0.2 % 11/15/19 01:21 Neut # (Auto) 7.93 K/uL (1.4-6.5) H 11/15/19 01:21 Lymph # (Auto) 2.40 K/uL (1.2-3.4) 11/15/19 01:21 [place] # (Auto) 0.82 K/uL (0.11-0.59) H 11/15/19 01:21 Eos # (Auto) 0.13 K/uL (0-0.5) 11/15/19 01:21 Baso # (Auto) 0.02 K/uL (0-0.2) 11/15/19 01:21 Immature Gran # (Auto) 0.03 K/uL (0.00-0.02) H 11/15/19 01:21 Sodium 141 mmol/L (136-145) 11/15/19 01:21 Potassium 4.0 mmol/L (3.5-5.1) 11/15/19 01:21 Chloride 109 mmol/L (98-107) H 11/15/19 01:21 Carbon Dioxide 26 mmol/L (21-32) 11/15/19 01:21 Anion Gap 6.0 (3-11) 11/15/19 01:21 BUN 18 mg/dl (7-18) 11/15/19 01:21 Creatinine 1.17 mg/dl (0.6-1.4) 11/15/19 01:21 Est Cr Clr Drug Dosing 80.4 ml/min 11/15/19 01:21 Est GFR ( Amer) 89.2 11/15/19 01:21 Est GFR (Non-Af Amer) 77.0 11/15/19 01:21 BUN/Creatinine Ratio 15.5 (10-20) 11/15/19 01:21 Glucose 87 mg/dl (70-99) 11/15/19 01:21 Calcium 8.6 mg/dl (8.5-10.1) 11/15/19 01:21 Total Bilirubin 0.3 mg/dl (0.2-1) 11/15/19 01:21 AST 10 U/L (15-37) L 11/15/19 01:21 ALT 20 U/L (12-78) 11/15/19 01:21 Alkaline Phosphatase 109 U/L (45-117) 11/15/19 01:21 Total Protein 6.4 gm/dl (6.4-8.2) 11/15/19 01:21 Albumin 3.4 gm/dl (3.4-5.0) 11/15/19 01:21 Globulin 3.0 gm/dl (2.5-4.0) 11/15/19 01:21 Albumin/Globulin Ratio 1.1 (0.9-2) 11/15/19 01:21 TSH 1.290 uIu/ml (0.300-4.500) 11/15/19 01:21 Urine Color Yellow 11/15/19 01:45 Urine Appearance Clear (Clear) 11/15/19 01:45 Urine pH 6.5 (4.5-7.5) 11/15/19 01:45 Ur Specific [place] 1.020 (1.000-1.030) 11/15/19 01:45 Urine Protein Negative (Negative) 11/15/19 01:45 Urine Glucose (UA) Negative (Negative) 11/15/19 01:45 Urine Ketones Negative (Negative) 11/15/19 01:45 Urine Blood Negative (Negative) 11/15/19 01:45 Urine Nitrite Negative (Negative) 11/15/19 01:45 Urine Bilirubin Negative (Negative) 11/15/19 01:45 Urine Urobilinogen Negative (Negative) 11/15/19 01:45 Ur Leukocyte Esterase Negative (Negative) 11/15/19 01:45 Salicylates < 1.7 mg/dl (2.8-20) L 11/15/19 01:21 Urine Opiates Screen Neg (Neg) 11/15/19 01:45 Ur Methadone, Qual Neg (Neg) 11/15/19 01:45 Acetaminophen 7 ug/ml (10-30) L 11/15/19 01:21 Urine Barbiturates Neg (Neg) 11/15/19 01:45 Ur Phencyclidine (PCP) Neg (Neg) 11/15/19 01:45 U Amphetamin/Meth Scrn Neg (Neg) 11/15/19 01:45 MDMA (Ecstasy) Screen Neg (Neg) 11/15/19 01:45 U Benzodiazepines Scrn Pos (Neg) H 11/15/19 01:45 Ur Cocaine Metabolite Neg (Neg) 11/15/19 01:45 U Marijuana (THC) Screen Neg (Neg) 11/15/19 01:45 Ethyl Alcohol mg/dL < 3.0 mg/dl (0-3) 11/15/19 01:21 Lyme Disease IgG Ab Negative (Negative) 11/15/19 01:21 Lyme Disease IgM Ab Negative (Negative) 11/15/19 01:21 Supervising Physician Co-Signing Physician Notes Patient seen and examined, chart reviewed, case discussed with Dr. Hooker and I agree with her assessment and plan as documented above. Resident Activity Tracking Resident Involvement: Resident Care Provided Care Provided: [facility] Medicine
[2019-11-15] MEDS ORDERED: POLYETHYLENE (MIRALAX) 17 GM PACK PO PRN (04:50)
[2019-11-15] MEDS ORDERED: NITROGLYCERIN SL 0.4 MG/TAB TAB SL PRN (04:50)
[2019-11-15] MEDS ORDERED: OXYBUTYNIN CHLORIDE 5 MG TAB PO PRN (04:50)
[2019-11-15] MEDS ORDERED: ONDANSETRON INJ 2 MG/ML 2 ML VIAL IV PRN (04:50)
[2019-11-15] MEDS ORDERED: LORazepam 2 MG/4 ML VIAL IV PRN (04:50)
[2019-11-15] MEDS ORDERED: ALBUTEROL HFA 8 GM INHALER INH PRN (04:50)
[2019-11-15] MEDS ORDERED: PHENAZOPYRIDINE HCL 100 MG TAB PO PRN (04:50)
[2019-11-15] MEDS ORDERED: ALUMINUM/MAGNESIUM SUSP 30 ML UDC PO PRN (04:50)
[2019-11-15] MEDS ORDERED: MAGNESIUM HYDROXIDE SUSP 30 ML UDC PO PRN (04:50)
[2019-11-15] MEDS ORDERED: IBUPROFEN 200 MG TAB PO PRN (04:50)
[2019-11-15] MEDS ORDERED: MoRPHine SULFATE 2 MG/ML CARP IV PRN (04:50)
--- NOTE | 2019-11-15 06:36 | Billing Data ---
Date of Service November 15, 2019 Coding Level of Care Code 91577 OBS Care - Level 3
--- NOTE | 2019-11-15 07:11 | CT Scan Report ---
HEAD CT NONCONTRAST CT DOSE: HISTORY: seizure TECHNIQUE: Multiaxial CT images of the head were performed without the use of intravenous contrast. A utomated exposure control was utilized for this study. A dose lowering technique was utilized adheri ng to the principles of ALARA. Comparison: Head CT 07/29/2016. Findings: The paranasal sinuses and mastoid air cells are clear. The calvarium and skull base are int act. The ventricles and sulci are within normal limits. There is no mass, hematoma, midline shift, or acute infarct. Impression: No acute intracranial abnormality. ACT 112: Negative or not required by law. Electronically signed by: Vinicio Barreto M.D. 11/15/2019 7:10 AM
--- NOTE | 2019-11-15 07:16 | CT Scan Report ---
CERVICAL SPINE CT CT DOSE: 899.35 mGy.cm HISTORY: neck pain s/p seizure TECHNIQUE: Multiaxial CT images of the cervical spine were performed and reformatted in the sagittal and coronal plane without the use of contrast. A dose lowering technique was utilized adhering to th e principles of ALARA. COMPARISON: None. FINDINGS: No fractures. No subluxation. Prevertebral soft tissues and the C1-C2 interval are intact. No pneumothorax. IMPRESSION: No fractures within the cervical spine. ACT 112: Negative or not required by law. Electronically signed by: Vinicio Barreto M.D. 11/15/2019 7:15 AM
--- NOTE | 2019-11-15 07:49 | XRay Report ---
LEFT KNEE 2 VIEWS HISTORY: left anterior knee swelling/pain COMPARISON: None. FINDINGS: There is no fracture or dislocation. Prepatellar soft tissue swelling. No knee effusions. N o radiopaque foreign bodies. IMPRESSION: Prepatellar soft tissue swelling. No fractures. ACT 112: Negative or not required by law. Electronically signed by: Vinicio Barreto M.D. 11/15/2019 7:47 AM
--- NOTE | 2019-11-15 07:50 | XRay Report ---
XR chest 1V portable HISTORY: Seizure. Altered mental status. COMPARISON: Chest 10/18/2019. FINDINGS: The lungs are clear. Cardiac silhouette is normal in size. No pleural effusions. No pneumot horax. IMPRESSION: No acute process. ACT 112: Negative or not required by law. Electronically signed by: Vinicio Barreto M.D. 11/15/2019 7:48 AM
[2019-11-15] MEDS: PRAZOSIN HCL 1 MG CAP PO SCH ×2 (07:51→13:31)
[2019-11-15] MEDS: DULOXETINE HCL 60 MG CAP PO SCH (07:51)
[2019-11-15] MEDS: FLUTICASONE/VILANTEROL 100/25MCG 14 PUFFS/INHALER INH SCH (07:52)
--- NOTE | 2019-11-15 08:03 | Electroencephalogram ---
EEG Procedure Note Date of Service November 15, 2019 Start / End Times Start Time: 5:55 AM End Time: 6:15 AM Referring Physician Juliet Hooker MD History Change in mental status, seizure-like activity Home Medication List Home Medications Medication Instructions Recorded Confirmed Type bupropion HCl [Wellbutrin SR] 200 mg PO QAM #0 tab 07/29/16 11/15/19 History albuterol sulfate [Proventil HFA] 2 inh INHALATION Q4 PRN 08/20/19 11/15/19 History chlordiazepoxide HCl 20 mg PO TID PRN 08/20/19 11/15/19 History duloxetine [Cymbalta] 30 mg PO HS 08/20/19 11/15/19 History duloxetine [Cymbalta] 60 mg PO QAM 08/20/19 11/15/19 History montelukast [Singulair] 10 mg PO HS 08/20/19 11/15/19 History prazosin [Minipress] 2 mg PO BID 08/20/19 11/15/19 History zolpidem [Ambien CR] 12.5 mg PO HS 08/20/19 11/15/19 History prazosin 4 mg PO HS 08/23/19 11/15/19 History acetaminophen [Tylenol Extra 1,000 mg PO Q6H PRN 10/24/19 11/15/19 History Strength] ibuprofen 200 - 800 mg PO Q6H PRN 10/24/19 11/15/19 History ondansetron 8 mg TRANSLINGUAL UD PRN 10/24/19 11/15/19 History zolpidem [Ambien] 5 mg PO HS 10/24/19 11/15/19 History oxycodone 5 mg PO Q6H PRN #14 cap 10/27/19 11/15/19 Rx oxybutynin chloride 5 mg tablet 5 mg PO BID PRN #20 tab 10/29/19 11/15/19 Rx phenazopyridine 100 mg tablet 100 mg PO TID PRN #10 tab 10/29/19 11/15/19 Rx oxycodone-acetaminophen 5 mg-325 1 tab PO Q8H PRN #14 tab 11/03/19 11/15/19 Rx mg tablet mometasone-formoterol [Dulera] 2 puff INHALATION QAM 11/15/19 11/15/19 History Inpatient Medication List Discontinued Medications Sodium Chloride (Nss 1000ml) 1,000 mls @ 999 mls/hr IV .Q1H1M ONE Stop: 11/15/19 01:51 Last Infusion: 11/15/19 02:08 Dose: 0 mls/hr Documented by: [id number] Admin: 11/15/19 01:07 Dose: 999 mls/hr Documented by: [id number] Lorazepam (Ativan) 2 mg in 4 mls @ 4 mls/min IV NOW STA Stop: 11/15/19 00:52 Last Admin: 11/15/19 01:07 Dose: 4 mls/min Documented by: [id number] Description This is a 21 electrode EEG with a single channel dedicated to limited EKG. The electrodes were placed in accordance with the International 10-20 system. The predominant background rhythm consists of generalized theta activity, K complexes and sleep spindles. Photic stimulation is unremarkable. A 10 Hz alpha rhythm is seen intermittently. There is no focal or lateralized slowing. No epileptiform abnormalities observed. Interpretation This awake/sleepy EEG reveals findings suggestive of stage II sleep. A mild generalized encephalopathy could also be present. There are no epileptiform abnormalities. [facility] EEG Procedure Codes Indication for Procedure (1) Seizure: Neurology Neurology: [id number] EEG include record awake & sleepy
[2019-11-15] MEDS ORDERED: BuPROPion SR 100 MG TABCR PO SCH (09:00)
--- NOTE | 2019-11-15 09:38 | Electrocardiogram Report ---
Test Reason : Blood Pressure : / mmHG Vent. Rate : 097 BPM Atrial Rate : 097 BPM P-R Int : 142 ms QRS Dur : 088 ms QT Int : 344 ms P-R-T Axes : 078 061 061 degrees QTc Int : 436 ms Poor data quality, interpretation may be adversely affected Normal sinus rhythm Normal ECG When compared with ECG of 24-OCT-2019 21:50, No significant change was found Confirmed by Grant Crespo ([id number]) on 11/15/2019 9:38:10 AM Referred By: REFERRED SELF Confirmed By:Grant Crespo
--- NOTE | 2019-11-15 10:24 | Neurology Consultation ---
Date of Consultation November 15, 2019 Assessment & Plan (1) Seizure-like activity: Seizure-like activity occurring in the context of a mild encephalopathy likely due to medication interactions/polypharmacy. Patient appears to be improved this morning. No evidence of epileptiform abnormalities on recently completed EEG. No evidence of significant structural disease or hemorrhage on CT of the head. No clinical signs suggestive of meningoencephalitis. Would recommend MRI of the brain, seizure protocol, with and without contrast. Consider reducing dosage of bupropion and/or duloxetine. Agree with psychiatry consultation. Patient had informed me that his PCP provided him with a prescription for tramadol recently. Would not use tramadol for pain as this medication may lower seizure threshold and potentially interact with duloxetine. I would not recommend starting an anticonvulsant for the purpose of seizure disorder at this point in time. History of Present Illness Reason for Consultation: Seizure-like activity Requesting Physician: Juliet Hooker MD Attending Physician: Philippe Machuca History of Present Illness The patient is a 39-year-old male with a chief complaint of altered mental status characterized by confusion, agitation, anxiety, momentary lapses and tremulousness as noted by his spouse. Symptoms began 2 days ago and occur in the context of several medication adjustments for management of PTSD, anxiety, depression, insomnia, and pain related to nephrolithiasis and recent orthopedic trauma. Patient does not have a known history of epilepsy or seizure disorder. 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 His recent history is complicated by development of nephrolithiasis as well as surgical repair of an ankle fracture sustained in a fall. He also has a history of alcohol abuse for which she had been prescribed Librium. He denies any recent alcohol consumption. He has current prescriptions for bupropion, duloxetine, oxycodone, zolpidem, and also reports tramadol provided by his PCP. Allergies Allergy/AdvReac Type Severity Reaction Status Date / Time animal dander Allergy Severe ASTHMA Verified 11/15/19 00:54 mold Allergy Severe ASTHMA Verified 11/15/19 00:54 pollen extracts Allergy Severe ASTHMA Verified 11/15/19 00:54 No Known Drug Allergies Allergy Unknown . Verified 11/15/19 00:54 Home Medications Home Medications Medication Instructions Recorded Confirmed Type bupropion HCl [Wellbutrin SR] 200 mg PO QAM #0 tab 07/29/16 11/15/19 History albuterol sulfate [Proventil HFA] 2 inh INHALATION Q4 PRN 08/20/19 11/15/19 History chlordiazepoxide HCl 20 mg PO TID PRN 08/20/19 11/15/19 History duloxetine [Cymbalta] 30 mg PO HS 08/20/19 11/15/19 History duloxetine [Cymbalta] 60 mg PO QAM 08/20/19 11/15/19 History montelukast [Singulair] 10 mg PO HS 08/20/19 11/15/19 History prazosin [Minipress] 2 mg PO BID 08/20/19 11/15/19 History zolpidem [Ambien CR] 12.5 mg PO HS 08/20/19 11/15/19 History prazosin 4 mg PO HS 08/23/19 11/15/19 History acetaminophen [Tylenol Extra 1,000 mg PO Q6H PRN 10/24/19 11/15/19 History Strength] ibuprofen 200 - 800 mg PO Q6H PRN 10/24/19 11/15/19 History ondansetron 8 mg TRANSLINGUAL UD PRN 10/24/19 11/15/19 History zolpidem [Ambien] 5 mg PO HS 10/24/19 11/15/19 History oxycodone 5 mg PO Q6H PRN #14 cap 10/27/19 11/15/19 Rx oxybutynin chloride 5 mg tablet 5 mg PO BID PRN #20 tab 10/29/19 11/15/19 Rx phenazopyridine 100 mg tablet 100 mg PO TID PRN #10 tab 10/29/19 11/15/19 Rx oxycodone-acetaminophen 5 mg-325 1 tab PO Q8H PRN #14 tab 11/03/19 11/15/19 Rx mg tablet mometasone-formoterol [Dulera] 2 puff INHALATION QAM 11/15/19 11/15/19 History Patient History Medical History Anxiety R/T PTSD Asthma USES RESCUE INHALER 2 X A WEEK. CURRENTLY CONTROLLED, PER PATIENT. PATIENT STATES THEY HAVE HAD TO USE HIS INHALER OR INCREASE HIS OXYGEN NEED IN PACU IN THE PAST. INSTRUCTED HIM TO BRING INHALER DOS. Depression R/T PTSD GERD (gastroesophageal reflux disease) OCCASIONALLY - CONTROLLED Kidney stones S/P LITHOTRIPSY AND SUBSEQUENT CYSTOSCOPY Osteoarthritis GENERALIZED Post traumatic stress disorder Surgical History H/O shoulder surgery PINS PLACED IN RIGHT SHOULDER History of cystoscopy History of lithotripsy History of surgery on arm NAIL REMOVED FROM ARM Hx of tonsillectomy PONV (postoperative nausea and vomiting) X1 WITH SURGERY FROM NAIL REMOVED FROM ARM Social History Preferred Language: Belarusian Communication Ability: Effective Visual Impairment: No Limitations Mobile Equipment Servicer Required: No Beliefs That Will Affect Care: None Current Living Situation: Spouse Other Information That Helps Us Care for You: No Feels Safe at Home: Yes Safety Concerns: Feels Safe At This Time Smoking Status: Never smoker Second Hand Exposure: No ; Hx Alcohol Use: No Hx Substance Use: No Review of Systems Constitutional: no fever, no chills and no fatigue Eyes: no blind spots and no diplopia Ear, Nose, Mouth, Throat: no tinnitus and no hearing loss Respiratory: no cough and no dyspnea Cardiovascular: no chest pain and no palpitations Gastrointestinal: no nausea and no vomiting Genitourinary: no dysuria and no urinary incontinence Musculoskeletal: no neck pain and no myalgia Integumentary: no rash and no lesions Neurologic: as per Subjective / HPI, + seizure-like activity and + confusion; no localized weakness, no loss of sensation and no headache(s) Psychiatric: as per Subjective / HPI, + depression and + anxiety Hematologic / Lymphatic: no easy bleeding and no easy bruising Exam (Neuro) Constitutional: well developed and well nourished; no acute distress Eyes: normal visual vasquez by confrontation, PERRL, normal accommodation and EOM intact bilaterally; no fundoscopic abnormality, no nystagmus and no papilledema Cardiovascular: Vessels: normal carotid upstroke; no carotid bruit Neurologic: Oriented to:: Person, Place and Time Memory: Short Term Intact and Remote Intact Attention: Span Intact and Concentration Intact Language: Naming Objects and Repeating Phrases Speech Fluency: negative Dysarthria Speech Aphasia: negative Aphasia Fund of Knowledge: Current Events, Past History and Vocabulary Cranial Nerves: Normal II (Visual vasquez full to confrontation, visual acuity normal), III, IV, (Pupils equal round reactive to light and accommodation, eye movements normal), V (Facial sensation intact), VII (There is no facial droop or weakness), VIII (Hearing intact), IX, X (Palate elevates to midline), XI (Shoulder shrug intact) and XII (Tongue protrudes to midline) Motor Strength: Normal Lower Extremities and Normal Upper Extremities; negative Pronator Drift Motor Tone: Normal Lower Extremities and Normal Upper Extremities Muscle Bulk/Involuntary Movements: No Involuntary Movements; negative Muscle Atrophy Sensation: Light Touch Intact, Pain/Temperature Intact, Vibration Intact and Proprioception Intact Coordination: Normal; negative Limited Balance, Dysdiadochokinesia, Finger-Nose Abnormal and Heel-Lai Abnormal Deep Tendon Reflexes: Rt Triceps: 2+, Lt Triceps: 2+, Rt Biceps: 2+, Lt Biceps: 2+, Rt Brachioradialis: 2+, Lt Brachioradialis: 2+, Rt Patellar: 2+, Lt Patellar: 2+, Rt Ankle: 2+ and Lt Ankl e: 2+ Special Tests: negative Babinski Present Gait: Normal Station and Gait Results & Data ([facility]) Vital Signs (Past 12 Hours) Vital Signs Temp Pulse Pulse Resp BP BP Pulse Ox 11/15/19 08:00 36.6 C 85 84 20 142/95 H 98 11/15/19 04:39 36.6 C 88 20 151/95 H 97 11/15/19 04:16 86 20 119/88 96 11/15/19 03:34 78 20 123/93 94 11/15/19 03:01 94 H 20 104/79 95 11/15/19 02:30 85 17 115/76 93 11/15/19 02:00 84 17 136/93 96 11/15/19 01:00 94 H 12 153/98 H 97 11/15/19 00:34 36.9 C 98 H 15 178/97 H 99 Laboratory Results WBC 11.33, hemoglobin 12.8, hematocrit 36.3, platelet count 236, sodium 141, potassium 4.0, BUN 18, creatinine 1.17, glucose 87, calcium 8.6, AST 10, ALT 20, TSH 1.290, UDS negative for opiates, amphetamines, MDMA, or marijuana. Positive for benzodiazepines. Ethyl alcohol level less than 3.[address] of the head is negative for hemorrhage or acute process. No significant parenchymal abnormality. I reviewed the images as well as the radiologist interpretation of this test. An EEG completed this morning revealed changes suggestive of stage II sleep. Mild encephalopathy not excluded. No epileptiform abnormalities. An electrocardiogram reveals a normal sinus rhythm, 97 bpm. Coding Level of Care Code 54476 Inpt Consult Level 5 Diagnoses Seizure-like activity R56.9
--- NOTE | 2019-11-15 12:19 | Psychiatric Consultation ---
Date of Consultation November 15, 2019 Impression / Recommendations Impression Dr. Nadine Palomares was directly involved in review and discussion of the patient's case and participated in medical decision making regarding treatment recommendations. RECOMMENDATIONS: 11/14 - No signs or symptoms of serotonin syndrome. Additionally, he has been taking duloxetine for several years per his report and is only on a moderate dose of the medication. He denies overdose of prescription medication and states he has also been taking his pain medication as prescribed. There is low suspicion for serotonin syndrome, as patient is only on one serotonergic psychotropic agent at a moderate dose and physical signs associated with the condition were not observed on admission (no rigidity, normal BP, no diaphoresis. - Neurology consulted for work-up of seizure-like activity - Given concern for seizure, and that fact that the day prior to admission was the first dose of bupropion in 8 days, would suggest discontinuation of bupropion. Pt can be continued to duloxetine 60mg qAM and 30mg qHS with plan to follow-up with his outpatient psychiatrist for further adjustments. Pt does verbalize desire to further taper his psychotropic medications over time. - Given concerns for behaviors observed over-night/during sleep, would suggest holding Ambien. His dose is rather significant and ideally this medication would not be used long-term. Could provide low-dose (5-10mg) if the below interventions are ineffective, but highly recommend the goal be to discontinue the medication. - Recommend scheduled melatonin 5mg (which was effective for sleep in the past) as well as having hydroxyzine 50-100mg available for sleep as needed. - Pt denies SI/HI, A/V hallucinations, and other acute psychiatric concerns. No indication for inpatient psychiatric treatment at this time. - Please feel free to reach out with any additional questions or updates. Psych History Identifying Data 39-year-old male admitted medically on 11/15/2019 after presenting to the ED with new onset seizure and reportedly abnormal behavior. Psychiatric consultation was requested due to history of PTSD and concern for serotonin syndrome. Chief Complaint "From what I'm understanding, I had a seizure last night." History of Present Illness Yogi Ayala is a 39-year-old male admitted medically on 11/15/2019 after presenting to the ED following new onset seizure and with report of abnormal behaviors. Medical work-up is underway to evaluate for seizure-like activity. Psychiatric consultation requested to evaluate patient for PTSD and serotonin syndrome. Pt indicates that he has actually been lowering the doses of his psychotropic medications as opposed to increasing them. He admits to taking a dose of bupropion the morning the seizure occurred, but states he had not taken it for about 8 days prior to that as he had self-tapered the medication to discontinuation. Pt reports taking his prazosin, duloxetine, and zolpidem as prescribed. Pt denies taking excessive amounts of his medications. Pt states he has been on this medication regimen for several years and denies previous concerns. Pt denies symptoms of PTSD since beginning his current psychotropic medication regimen. He denies present concerns related to this diagnosis and is actually planning to request to taper this medications over time. Pt is established with Dr. Pitt for psychotropic medication management. Pt does state that the evening prior to his seizure-like activity he had taken his zolpidem as prescribed, but his reported some unusual behavior. Pt does not recall the events reported by his and states there have been times in the past where he displayed behavior overnight that he could not recall in the morning. We discussed black box warning for behavioral disturbance in sleep related to zolpidem use. Reviewed medication recommendations with patient, who is agreeable with discontinuing bupropion and zolpidem - adding melatonin and hydroxyzine - and continuing prazosin and duloxetine unchanged. Pt denies SI, HI, SIB, A/V hallucinations, paranoia, rickey/hypomania, other symptoms more suggestive of a bipolar presentation, OCD, eating disorder, and other specific psychiatric symptoms. Past Psychiatric History Current Psychiatric Diagnosis: Depression, PTSD Outpatient Services: Psychiatrist - Dr. Pitt Previous Psych Admissions: Denied History of Previous Suicide Attempt: No Describe Attempts in the Past: suicidal gesture involving gun - occured in teens, no intent to harm Past Medication Trials: Per patient reports: 1. Ativan 2. Zoloft 3. Melatonin 4. Wellbutrin SR 5. Cymbalta 6. Prazosin 7. Ambien Allergies Allergy/AdvReac Type Severity Reaction Status Date / Time animal dander Allergy Severe ASTHMA Verified 11/15/19 00:54 mold Allergy Severe ASTHMA Verified 11/15/19 00:54 pollen extracts Allergy Severe ASTHMA Verified 11/15/19 00:54 No Known Drug Allergies Allergy Unknown . Verified 11/15/19 00:54 Home Medications Home Medications Medication Instructions Recorded Confirmed Type bupropion HCl [Wellbutrin SR] 200 mg PO QAM #0 tab 07/29/16 11/15/19 History albuterol sulfate [Proventil HFA] 2 inh INHALATION Q4 PRN 08/20/19 11/15/19 History chlordiazepoxide HCl 20 mg PO TID PRN 08/20/19 11/15/19 History duloxetine [Cymbalta] 30 mg PO HS 08/20/19 11/15/19 History duloxetine [Cymbalta] 60 mg PO QAM 08/20/19 11/15/19 History montelukast [Singulair] 10 mg PO HS 08/20/19 11/15/19 History prazosin [Minipress] 2 mg PO BID 08/20/19 11/15/19 History zolpidem [Ambien CR] 12.5 mg PO HS 08/20/19 11/15/19 History prazosin 4 mg PO HS 08/23/19 11/15/19 History acetaminophen [Tylenol Extra 1,000 mg PO Q6H PRN 10/24/19 11/15/19 History Strength] ibuprofen 200 - 800 mg PO Q6H PRN 10/24/19 11/15/19 History ondansetron 8 mg TRANSLINGUAL UD PRN 10/24/19 11/15/19 History zolpidem [Ambien] 5 mg PO HS 10/24/19 11/15/19 History oxycodone 5 mg PO Q6H PRN #14 cap 10/27/19 11/15/19 Rx oxybutynin chloride 5 mg tablet 5 mg PO BID PRN #20 tab 10/29/19 11/15/19 Rx phenazopyridine 100 mg tablet 100 mg PO TID PRN #10 tab 10/29/19 11/15/19 Rx oxycodone-acetaminophen 5 mg-325 1 tab PO Q8H PRN #14 tab 11/03/19 11/15/19 Rx mg tablet mometasone-formoterol [Dulera] 2 puff INHALATION QAM 11/15/19 11/15/19 History Family History Denies known family history of mental health conditions. Substance Abuse History Pt denies alcohol use since 07/2019 - states he had struggled with over-using alcohol for 1.5 years prior. Denies tobacco use or use of other illicit substances. Personal History Living Arrangements: Home (with and daughters) Employment Status: [employer] Employed Marital Status: (to of 19 years) Number Of Children: 2 young daughters Beliefs That Will Affect Care: Roman Catholic Psychological Trauma History Comment: PTSD symptoms related to finding his father crushed in farming machinery in 2016 Patient History Medical History Anxiety R/T PTSD Asthma USES RESCUE INHALER 2 X A WEEK. CURRENTLY CONTROLLED, PER PATIENT. PATIENT STATES THEY HAVE HAD TO USE HIS INHALER OR INCREASE HIS OXYGEN NEED IN PACU IN THE PAST. INSTRUCTED HIM TO BRING INHALER DOS. Depression R/T PTSD GERD (gastroesophageal reflux disease) OCCASIONALLY - CONTROLLED Kidney stones S/P LITHOTRIPSY AND SUBSEQUENT CYSTOSCOPY Osteoarthritis GENERALIZED Post traumatic stress disorder Surgical History H/O shoulder surgery PINS PLACED IN RIGHT SHOULDER History of cystoscopy History of lithotripsy History of surgery on arm NAIL REMOVED FROM ARM Hx of tonsillectomy PONV (postoperative nausea and vomiting) X1 WITH SURGERY FROM NAIL REMOVED FROM ARM Social History Preferred Language: Faroese Communication Ability: Effective Visual Impairment: No Limitations Pot Holder Binder Required: No Beliefs That Will Affect Care: Roman Catholic Current Living Situation: Spouse Other Information That Helps Us Care for You: No Feels Safe at Home: Yes Safety Concerns: Feels Safe At This Time Smoking Status: Never smoker Second Hand Exposure: No ; Hx Alcohol Use: No Hx Substance Use: No Physical Exam Psychiatric: Orientation: alert, oriented x 3 and cooperative (and pleasant) Apperance: appropriately dressed, appropriately groomed and appeared stated age Eye Contact: good eye contact Motor Behavior: no abnormal motor movements (observed while laying in bed) Speech: normal rate/rhythm/volume of speech Affect: + anxious affect Mood: + anxious mood (related to ongoing medical concerns) Thought Process: goal directed thought process, clear/coherent thought process and thought association intact Thought Content: reality based without delusions; not paranoid, no hopelessness and no worthlessness Suicidal Thoughts: denies suicidal thoughts and denies suicidal intent Homicidal Thoughts: denies homicidal thoughts Hallucinations: no auditory hallucinations and no visual hallucinations Cognition: attention grossly intact and language grossly intact; + recent memory not intact (events leading to admission are admittedly foggy) Estimated Intelligence: consistent with education level Insight: + fair insight Judgement: + fair judgement Vital Signs (Past 24 Hours): Last Vital Signs Temp 36.6 C 11/15/19 12:00 Pulse 116 H 11/15/19 12:00 Resp 16 11/15/19 12:00 BP 132/95 11/15/19 12:00 Pulse Ox 95 11/15/19 12:00 Review of Systems Constitutional: denied Cardiovascular: denied Respiratory: denied Gastrointestinal: denied Neurological: denied Musculoskeletal: reports chronic back and left shoulder pain Psychiatric: denies symptoms other than stated above Total of at least 10 systems reviewed, pertinent positives as above and in HPI. Results & Data ([facility]) Medications Administered Bupropion HCl (Wellbutrin-Sr) 200 mg PO QAM [facility] Stop: 12/15/19 08:59 Last Admin: 11/15/19 07:52 Dose: 200 mg Documented by: [id number] Duloxetine HCl (Cymbalta) 60 mg PO QAM [facility] Stop: 12/15/19 08:59 Last Admin: 11/15/19 07:51 Dose: 60 mg Documented by: [id number] Fluticasone/Vilanterol (Breo Ellipta 100/25 Mcg Inh) 1 puffs INH DAILY [facility] Stop: 12/15/19 08:59 Last Admin: 11/15/19 07:52 Dose: 1 puffs Documented by: [id number] Prazosin HCl (Prazosin Hcl) 2 mg PO BID@0900,1200 [facility] Stop: 12/15/19 08:59 Last Admin: 11/15/19 07:51 Dose: 2 mg Documented by: [id number] Coding Level of Care Code 49817 [facility] Intl Hosp Care Lvl 3
[2019-11-15] MEDS ORDERED: diazePAM 2 MG TABLET PO STA ×2 (16:01→18:50)
[2019-11-15] MEDS ORDERED: ZOLPIDEM TARTRATE 5 MG TAB PO PRN (18:13)
[2019-11-15 18:48] LABS: Basophils # (auto) 0.02 K/uL (0-0.2); Basophils % (auto) 0.2 %; Hematocrit (blood only) 38.7 % (42-52); Hemoglobin 13.5 g/dL (14.0-18.0); Immature Granulocytes # (auto) 0.03 K/uL (0.00-0.02); Immature Granulocytes % (auto) 0.3 %; Lymphocytes # (auto) 2.47 K/uL (1.2-3.4); Lymphocytes % (auto) 25.5 %; Mean Corpuscular Hemoglobin 32.3 pg (25-34); Mean Corpuscular Hgb Conc 34.9 g/dL (32-36); Mean Corpuscular Volume 92.6 fL (80-100); Monocytes # (auto) 0.85 K/uL (0.11-0.59); Monocytes % (auto) 8.8 %; Neutrophils # (auto) 6.21 K/uL (1.4-6.5); Neutrophils % (auto) 64.2 %; Platelet Count 244 K/uL (130-400); RDW Coefficient of Variation 12.7 % (11.5-14.5); Red Blood Count 4.18 M/uL (4.7-6.1); White Blood Count 9.68 K/uL (4.8-10.8)
[2019-11-15] MEDS: ACETAMINOPHEN 500 MG TAB PO PRN (18:57)
[2019-11-15 19:07] LABS: BUN Creatinine Ratio 12.7 (10-20); Calcium 9.3 mg/dl (8.5-10.1); Creatinine Clr Calc Pharmacy 68.1 ml/min; Est GFR (African American) 70.6; Est GFR (Non-African American) 60.9; Potassium 4.3 mmol/L (3.5-5.1)
[2019-11-15] MEDS ORDERED: GADOBUTROL 65ML VIAL IV PRN (19:51)
[2019-11-15] MEDS ORDERED: MELATONIN 3 MG TAB PO SCH (21:00)
[2019-11-15] MEDS ORDERED: MONTELUKAST SODIUM 10 MG TABLET PO SCH (21:00)
[2019-11-15] MEDS ORDERED: ZOLPIDEM 12.5 MG PO SCH (21:00)
[2019-11-15] MEDS ORDERED: PRAZOSIN HCL 1 MG CAP PO SCH (21:00)
[2019-11-15] MEDS ORDERED: ZOLPIDEM TARTRATE 5 MG TAB PO SCH (21:00)
[2019-11-15] MEDS ORDERED: DULOXETINE HCL 30 MG CAP PO SCH (21:00)
--- NOTE | 2019-11-15 21:24 | Magnetic Resonance Report ---
MRI OF THE BRAIN COMBO CLINICAL HISTORY: Dizziness. Seizure like activity. COMPARISON STUDY: CT of the brain dated 11/15/2019. TECHNIQUE: MRI of the brain was performed utilizing various T1 and T2-weighted sequences in the axial , sagittal, and coronal planes. Contrast-enhanced sequences were acquired following the administratio n of 8 cc of Gadavist. The examination is performed using the seizure protocol. FINDINGS: Brain parenchyma: The brain parenchyma is normal in appearance. There is no hemorrhage or mass effect . There is no restricted diffusion to suggest acute ischemia. No enhancing mass lesion is identified on the postcontrast images. Wilkerson-white matter differentiation is preserved. No extra-axial fluid ania ection is seen. The hippocampi are normal and symmetric. The cerebellar tonsils are normal in configu ration. Ventricles, sulci, and cisterns: Normal in configuration. Pituitary and sella: Unremarkable. Intracranial vasculature: Normal flow voids are maintained at the skull base. Orbits: The bony orbits are grossly intact. Orbital contents are normal in appearance. Sinuses and mastoids: Clear. Calvarium: Unremarkable. Cervical cord: Partially visualized cervical spinal cord is normal in morphology and signal intensity . IMPRESSION: No acute intracranial abnormality. ACT 112: Negative or not required by law. Electronically signed by: Richard Manriquez M.D. 11/15/2019 9:23 PM
--- NOTE | 2019-11-15 21:41 | Communication Note ---
Date of Service: November 15, 2019 Patient appears more awake and has not had any seizure like activity. He states he is having ankle pain, but this is chronic. I spoke with his Kiesha, who reports that he has not been compliant with his bupropion but has had this medication for months. But he takes it intermittently. will discuss this with psych. Awaiting MRI of brain.
[2019-11-16] MEDS: PRAZOSIN HCL 1 MG CAP PO SCH ×2 (08:00→11:35)
[2019-11-16] MEDS: FLUTICASONE/VILANTEROL 100/25MCG 14 PUFFS/INHALER INH SCH (08:01)
[2019-11-16] MEDS: DULOXETINE HCL 60 MG CAP PO SCH (08:01)
[2019-11-16] MEDS: ACETAMINOPHEN 500 MG TAB PO PRN (08:01)
[2019-11-17 11:54] LABS: 7-Aminoclonaz, Confirm NEGATIVE ng/mL (<25); Hydro-Alp Ur, GC/MS NEGATIVE ng/mL (<25); Hydroxyethylflurazepam, Conf NEGATIVE ng/mL (<50); Hydroxymidazolam Ur, GC/MS 2310 ng/mL (<50); Hydroxytriazolam NEGATIVE ng/mL (<50); Lorazepam, Ur GC/MS NEGATIVE ng/mL (<50); Nordiazepam, Confirm NEGATIVE ng/mL (<50); Oxazepam Ur, GC/MS 84 ng/mL (<50); Temazepam, Confirm NEGATIVE ng/mL (<50)
--- NOTE | 2019-11-18 07:21 | Discharge Summary ---
Date of Service November 16, 2019 Principal Diagnosis metabolic encephalopathy from polypharmacy. Discharge Exam Constitutional: in no apparent distress, sitting in chair asking to be discharged. Eyes: dilated pupils reactive to light bilaterally, EOMI, no vertical or horizontal nystagmus Cardiac: tachycardic, regular rhythm, no murmurs, gallops or rubs. Normal S1, S2 Pulm: CTA BL, no wheezes, rhonchi, crackles or rubs, moving air well throughout both lungs Abd: soft, nontender, nondistended, normal bowel sounds, no rebound or guarding Extremities: 2+ peripheral pulses, no edema, supra-patellar swelling over left patella, warm to touch, nontender. Neuro: no focal deficits, able to move all 4 extremities Discharge Data Allergies Allergy/AdvReac Type Severity Reaction Status Date / Time animal dander Allergy Severe ASTHMA Verified 11/15/19 00:54 mold Allergy Severe ASTHMA Verified 11/15/19 00:54 pollen extracts Allergy Severe ASTHMA Verified 11/15/19 00:54 No Known Drug Allergies Allergy Unknown . Verified 11/15/19 00:54 Consultations 11/15/19 02:33 ED Decision to Admit Stat 11/15/19 04:50 Consult Neurology Routine Consult Psychiatry Routine Ordered Studies 11/15/19 00:51 CT cervical spine wo con Urgent CT head/brain wo con Urgent 11/15/19 10:27 MR brain seizure wo/w con Routine Hospital Course (1) Seizure-like activity: (2) Depression: (3) Altered mental status, unspecified: PTSD (post-traumatic stress disorder): 39 yo M with hx PTSD, anxiety, depression, kidney stones admitted for altered mental status and abnormal behavior and new onset seizure activity. 1) Encephalopathy -patient appears to be noncompliant with his medications. During hospital stay, bupropion was held. Neurology and Psych were consulted and do not believe this to be epilepsy and he altered mental staus may be from polypharmacy. Below is the analysis from psych: in bold - No signs or symptoms of serotonin syndrome. Additionally, he has been taking duloxetine for several years per his report and is only on a moderate dose of the medication. He denies overdose of prescription medication and states he has also been taking his pain medication as prescribed. There is low suspicion for serotonin syndrome, as patient is only on one serotonergic psychotropic agent at a moderate dose and physical signs associated with the condition were not observed on admission (no rigidity, normal BP, no diaphoresis. - Neurology consulted for work-up of seizure-like activity - Given concern for seizure, and that fact that the day prior to admission was the first dose of bupropion in 8 days, would suggest discontinuation of bupropion. Pt can be continued to duloxetine 60mg qAM and 30mg qHS with plan to follow-up with his outpatient psychiatrist for further adjustments. Pt does verbalize desire to further taper his psychotropic medications over time. - Given concerns for behaviors observed over-night/during sleep, would suggest holding Ambien. His dose is rather significant and ideally this medication would not be used long-term. Could provide low-dose (5-10mg) if the below interventions are ineffective, but highly recommend the goal be to discontinue the medication. - Recommend scheduled melatonin 5mg (which was effective for sleep in the past) as well as having hydroxyzine 50-100mg available for sleep as needed. - Pt denies SI/HI, A/V hallucinations, and other acute psychiatric concerns. No indication for inpatient psychiatric treatment at this time. - Please feel free to reach out with any additional questions or updates. Below is the analysis of Neurology: Seizure-like activity occurring in the context of a mild encephalopathy likely due to medication interactions/polypharmacy. Patient appears to be improved this morning. No evidence of epileptiform abnormalities on recently completed EEG. No evidence of significant structural disease or hemorrhage on CT of the head. No clinical signs suggestive of meningoencephalitis. Would recommend MRI of the brain, seizure protocol, with and without contrast. (This was negative. Consider reducing dosage of bupropion and/or duloxetine. Agree with psychiatry consultation. Patient had informed me that his PCP provided him with a prescription for tramadol recently. Would not use tramadol for pain as this medication may lower seizure threshold and potentially interact with duloxetine. I would not recommend starting an anticonvulsant for the purpose of seizure disorder at this point in time. 2) Psychiatric Disorders as stateed above. 3) Tachycardia - No signs on monitor of SVT/aberrant rhythms. . 4) EILEEN - undiagnosed; patient frequently snores and has had apneic episodes at night - wakes up unrested and tired all day - would benefit from sleep study as an outpatient. FEN/GI: regular diet Code Status: Full Code Total Time Total Time Spent Total Time Spent (In Minutes): 50 Total Time Includes: Examination of the Patient, Discharge Planning and Medication Reconciliation Discharge Plan Discharge Items Patient Disposition: Home - Self-Care Reason For Visit: ALTERED MENTAL STATUS/ SEIZURE Discharge Diagnosis: Altered mental status Activity: Resume your previous activity Non-emergency contact: Primary Care Provider Call non-emergency contact if: you have any medication questions Follow-up/Referrals: Chuy Louie [Primary Care Provider] - Diet: Regular Addtl Attending Provider Instructions: You were seen for seizure like activity. Neurologist did not feel this was an epilepsy and believes this is likely a side effect of too many medications. It was likely also a product of not taking the medications at the correct dose. You were also seen by Psych who recommended to stop buproprion and also stop ambien. Pending Studies at Discharge: No Stand-Alone Forms: My [employer], Smoking Cessation Medications and DC Order Prescriptions: New melatonin 3 mg Tablet 6 mg PO HS Qty: 60 RF: 0 hydroxyzine HCl 25 mg Tablet 50 mg PO HS Qty: 30 RF: 0 Continued oxybutynin chloride 5 mg tablet 5 mg PO BID PRN (Reason: bladder spasms) Qty: 20 RF: 1 phenazopyridine [Pyridium] 100 mg tablet 100 mg PO TID PRN (Reason: pain) Qty: 10 RF: 0 ondansetron 8 mg tablet,disintegrating 8 mg translingual UD PRN (Reason: Nausea) RF: 0 acetaminophen [Tylenol Extra Strength] 500 mg Tablet 1,000 mg PO Q6H PRN (Reason: Pain) RF: 0 ibuprofen 200 mg Tablet 200 - 800 mg PO Q6H PRN (Reason: Pain) RF: 0 oxycodone 5 mg capsule 5 mg PO Q6H PRN (Reason: pain) Qty: 14 RF: 0 montelukast [Singulair] 10 mg Tablet 10 mg PO HS RF: 0 albuterol sulfate [Proventil HFA] 90 mcg/actuation Hfa Aerosol Inhaler 2 inh INHALATION Q4 PRN (Reason: Shortness Of Breath Or Wheezing) RF: 0 prazosin [Minipress] 2 mg Capsule 2 mg PO BID RF: 0 duloxetine [Cymbalta] 30 mg Capsule,Delayed Release(Dr/Ec) 30 mg PO HS RF: 0 duloxetine [Cymbalta] 60 mg Capsule,Delayed Release(Dr/Ec) 60 mg PO QAM RF: 0 prazosin 2 mg Capsule 4 mg PO HS RF: 0 Dulera 200-5 mcg/actuation HFA aerosol inhaler 2 puff INHALATION QAM RF: 0 Discontinued bupropion HCl [Wellbutrin SR] 200 mg Tablet Sustained-Release 12 Hr 200 mg PO QAM Qty: 0 RF: 0 oxycodone-acetaminophen [Percocet] 5-325 mg tablet 1 tab PO Q8H PRN (Reason: pain) Qty: 14 RF: 0 zolpidem [Ambien] 5 mg tablet 5 mg PO HS RF: 0 chlordiazepoxide HCl 10 mg Capsule 20 mg PO TID PRN (Reason: as instructed) RF: 0 zolpidem [Ambien CR] 12.5 mg Tablet,Ext Release Multiphase 12.5 mg PO HS RF: 0 Discharge Orders: Discharge Order (Routine); Ordered 11/16/19 Ordered By: Philippe Leong/Other Patient Handouts: First Aid: Seizures, ED Seizure New Onset Unknown Cause Adult, Melatonin oral solid dosage forms, Hydroxyzine capsules or tablets Admission Data Admit Date/Time: 11/15/19 04:08 Attending Provider: Philippe Machuca Admit Provider: Juliet Hooker Primary Care Provider: Chuy Louie Other Providers: Susi Sherman ; Chuy Bai ; Nadine Palomares Other Interventions: Discharge Summary Assessment (RN) Last Done: 11/16/19 14:12 DC Date/Time DO NOT enter until pt leaves facility: 11/16/19 16:21 Coding Level of Care Code D/C Day Management >30 mins Diagnoses Seizure-like activity R56.9 Depression F32.9 Altered mental status, unspecified R41.82
== END 2019-11-16 16:21 | disposition home or self-care (01) ==
LOC: ED 00:34 → 1E 00:34 → SUATTDRO 04:08 → 1E 04:18

== ENCOUNTER 2021-04-09 17:11 | Inpatient (IN) ==
--- NOTE | 2021-04-09 17:42 | XRay Report ---
XR chest 2V PA/lateral CLINICAL HISTORY: Resp sx c/w COVID-19. Difficulty breathing COMPARISON STUDY: 01/15/2020 TECHNIQUE: 2 views of the chest FINDINGS: Frontal and lateral radiographs of the chest demonstrate the cardiomediastinal silhouette to be withi n normal limits. Mild patchy interstitial and alveolar opacities are present bilaterally. The finding s are most characteristic of a viral type pneumonitis. Covid 19 pneumonia should be excluded. There i s no evidence for effusion bilaterally. There is no evidence for vascular congestion. There is no acu te osseous pathology. IMPRESSION: Mild patchy interstitial and alveolar opacities bilaterally characteristic of a viral typ e pneumonitis and probable early Covid 19 pneumonia. ACT 112: Negative or not required by law. Electronically signed by: Marcelino Reynolds M.D. 04/09/2021 5:40 PM
[2021-04-09 17:45] LABS: Influenza A virus by PCR Negative (Negative); Influenza B virus by PCR Negative (Negative)
[2021-04-09] MEDS ORDERED: ACETAMINOPHEN 500 MG TAB PO STA (20:08)
[2021-04-09] MEDS ORDERED: SODIUM CHLORIDE 0.9% 1000ML 2,000 ML IV ONE (20:08)
--- NOTE | 2021-04-09 20:08 | Emergency Department Note ---
Impression & Plan Pneumonia due to COVID-19 virus, Tachycardia, Hypoxia ED Provider Note INFORMANT: Patient ED PROVIDER(S): Bunny Hopkins MD CHIEF COMPLAINT: Shortness of breath PLAN: Disposition: Admitted Condition: Good Outpatient prescription management: none Referral: None MEDICAL DECISION MAKING: Patient presented to the emergency department because of of increasing shortness of breath and flulike symptoms. He was concerned as he was dealing with pneumonia a few months ago. The patient notes that his coworkers all started to get sick this last week and was concerned that he was dealing with Covid as they were coming down with Covid. Chest x-ray was concerning for Covid pneumonia. Patient was very tachycardic. He was hydrated. The patient was given IV Decadron. He was given oral Tylenol. Patient was reassessed and was still feeling weak and short of breath. CT imaging was ordered. CT imaging does show findings consistent with a Covid pneumonia. His Covid test is currently pending. Given the patient's situation further management was felt to be appropriate in the hospital. Consultation was made with Dr. Braxton Collins of the [facility] service. Patient was evaluated in the ER for further management. Triage Nursing notes reviewed and agree them. Vital Signs: reviewed and remarkable for no significant abnormalities Differential diagnosis: Covid, infection, dehydration, metabolic abnormality, hypo/hyperglycemia, electrolyte disturbance, anemia, hypoxia, cardiac sources, intracerebral event, toxicologic, neurologic, as well as other pathologies. Diagnostics interpreted by me: EC Lead ECG performed and revealed sinus tachycardia at 124 bpm, normal Peck, QRS normal. No elevation or depression. No PACs or PVCs Cardiac Monitoring: Cardiac monitoring ordered by me: The patient was placed on continuous cardiac monitoring and observed. It revealed a tachycardic rhythm at 128 beats per minute without ectopy or evidence of dysrhythmia. Imaging studies: Chest x-ray concerning for viral-like pneumonia. CT imaging of the chest reveals bilateral infiltrates. No pulmonary bullae noted. HPI: The patient is a 40year old male who presents to the Emergency Room with complaints of shortness of breath. This started last week and is worsening. The patient also notes the following associated symptoms, cough, fever, shakiness, some nausea which resolved. Patient notes multiple coworkers sick last week with Covid. PCP felt that he was likely dealing with a Covid infection. Patient states he was dealing with pneumonia over a month ago, was getting better, and then started to get sick again this week. He has been monitoring his oxygen at home and it dipped down to 89% yesterday. A drop down to 88% today. He contacted his primary physician, Dr. Louie and was directed to the ER for further management and treatment. The patient has found no relieving factors. Current pain is rated as 0/10. Pt denies LOC, headache, diaphoresis, visual changes, neck pain, chest pain, breathing difficulties, vomiting, abdominal pain, back pain, melena, hematochezia, urinary symptoms, numbness, lymphadenopathy, rash, or other complaints. ROS: See above HPI for pertinent positives & negatives. A total of 10 systems reviewed and were otherwise negative. PAST MEDICAL HISTORY:See Below , nephrolithiasis, PTSD, pneumonia PAST SURGICAL HISTORY:See Below, FAMILY HISTORY:See Below SOCIAL HISTORY:See Below, employed HOME MEDICATIONS:See Below ALLERGIES:See Below VITALS:See Below PHYSICAL EXAMINATION: GENERAL: Awake, alert, ill-appearing, in no distress HENT: Normocephalic, atraumatic. Oropharynx unremarkable. EYES: Normal conjunctiva. Sclera non-icteric. NECK: Inspection normal. Non-tender. Supple. No nuchal rigidity. FROM. No masses. RESPIRATORY: Clear to auscultation. No wheezes. No rales. Normal respiratory effort. CARDIAC: Tachycardic rate. Normal rhythm. No murmurs. No rubs. Extremities warm and well perfused. Pulses equal. No JVD. GI: Soft, non-distended. No tenderness to palpation. No rebound or guarding. No masses. RECTAL: Deferred. MUSCULOSKELETAL: Atraumatic. Chest examination reveals no tenderness. The back is symmetrical on inspection without obvious abnormality. There is no CVA tend erness to palpation. No joint edema. LOWER EXTREMITIES: Calves are equal size bilaterally and non-tender. No edema. No discoloration. NEURO: Normal sensorium. No sensory or motor deficits noted. SKIN: No rash or jaundice noted. Bunny Hopkins MD Past Med/Surg History Medical History (Updated 04/09/21 @ 20:17 by Bunny Hopkins MD) Anxiety R/T PTSD Asthma USES RESCUE INHALER 2 X A WEEK. CURRENTLY CONTROLLED, PER PATIENT. PATIENT STATES THEY HAVE HAD TO USE HIS INHALER OR INCREASE HIS OXYGEN NEED IN PACU IN THE PAST. INSTRUCTED HIM TO BRING INHALER DOS. Depression R/T PTSD GERD (gastroesophageal reflux disease) OCCASIONALLY - CONTROLLED Kidney stones S/P LITHOTRIPSY AND SUBSEQUENT CYSTOSCOPY Osteoarthritis GENERALIZED Post traumatic stress disorder Surgical History H/O shoulder surgery PINS PLACED IN RIGHT SHOULDER History of cystoscopy History of lithotripsy History of surgery on arm NAIL REMOVED FROM ARM Hx of tonsillectomy PONV (postoperative nausea and vomiting) X1 WITH SURGERY FROM NAIL REMOVED FROM ARM Social History Smoking Status: Never smoker Second Hand Exposure: No; Hx Alcohol Use: No Hx Substance Use: No Preferred Language: [place] Communication Ability: Effective Visual Impairment: No 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 Verified 04/09/21 21:34 Home Meds Home Medications Medication Instructions Recorded Confirmed albuterol sulfate 90 mcg/actuation 2 inh INHALATION Q4 PRN 08/20/19 04/09/21 aerosol inhaler (Proventil HFA) montelukast 10 mg tablet 10 mg PO HS 08/20/19 04/09/21 (Singulair) prazosin 2 mg capsule (Minipress) 2 mg PO BID 08/20/19 04/09/21 prazosin 2 mg capsule 4 mg PO HS 08/23/19 04/09/21 mometasone-formoterol HFA 200 2 puff INHALATION QAM 11/15/19 04/09/21 mcg-5 mcg/actuation aerosol inhaler (Dulera) baclofen 10 mg tablet 10 mg PO DAILY 04/09/21 04/09/21 buspirone 5 mg tablet 5 mg PO DAILY 04/09/21 04/09/21 doxepin 50 mg capsule 50 mg PO DAILY 04/09/21 04/09/21 fluoxetine 40 mg capsule 40 mg PO HS 04/09/21 04/09/21 Previous Rx's Medication Instructions Recorded melatonin 3 mg tablet 6 mg PO HS #60 tab 11/16/19 Results & Data (ED) Vital Signs Vital Signs - 24 hr 04/09/21 17:14 04/09/21 20:35 Temperature 36.7 C Temperature Source Temporal Artery Scan Pulse Rate 142 H 128 H Pulse Rhythm Regular Respiratory Rate 18 20 Respiratory Effort / Characteristics Non-Labored Respiratory Depth Normal Blood Pressure 147/87 H Blood Pressure Mean 107 Pulse Oximetry 96 94 Oxygen Delivery Method Room Air Room Air Sepsis Recent Fever Within 48 Hours No Sepsis New/Unexplained Change in Mental Status No Sepsis Action Taken by Nursing No Action Required Laboratory Data Result diagrams: 04/09/21 20:15 04/09/21 20:15 Lab Results 04/09/21 04/09/21 04/09/21 Range/Units 17:17 20:15 20:15 WBC 9.45 (4.8-10.8) K/uL RBC 4.18 L (4.7-6.1) M/uL Hgb 13.6 L (14.0-18.0) g/dL Hct 37.9 L (42-52) % MCV 90.7 (80-100) fL MCH 32.5 (25-34) pg MCHC 35.9 (32-36) g/dL RDW Std Deviation 42.9 (36.4-46.3) fL RDW Coeff of Will 12.9 (11.5-14.5) % Plt Count 413 H (130-400) K/uL MPV 8.6 (7.4-10.4) fL Immature Gran % (Auto) 1.7 % Neut % (Auto) 74.2 % Lymph % (Auto) 16.8 % Hodgeman % (Auto) 7.0 % Eos % (Auto) 0.1 % Baso % (Auto) 0.2 % Neut # (Auto) 7.01 H (1.4-6.5) K/uL Lymph # (Auto) 1.59 (1.2-3.4) K/uL Hodgeman # (Auto) 0.66 H (0.11-0.59) K/uL Eos # (Auto) 0.01 (0-0.5) K/uL Baso # (Auto) 0.02 (0-0.2) K/uL Immature Gran # (Auto) 0.16 H (0.00-0.02) K/uL Sodium 139 (136-145) mmol/L Potassium 3.5 (3.5-5.1) mmol/L Chloride 104 (98-107) mmol/L Carbon Dioxide 24 (21-32) mmol/L Anion Gap 11.0 (3-11) BUN 11 (7-18) mg/dl Creatinine 0.87 (0.6-1.4) mg/dl Est Cr Clr Drug Dosing 109.8 ml/min Est GFR ( Amer) 123.4 ml/min Est GFR (Non-Af Amer) 106.5 ml/min BUN/Creatinine Ratio 12.2 (10-20) Glucose 107 H (70-99) mg/dl Lactate (0.4-2.0) mmol/L Calcium 9.2 (8.5-10.1) mg/dl Total Bilirubin 0.4 (0.2-1) mg/dl AST 15 (15-37) U/L ALT 34 (12-78) U/L Alkaline Phosphatase 104 (45-117) U/L Troponin I < 0.015 (0-0.045) ng/ml Total Protein 7.2 (6.4-8.2) gm/dl Albumin 2.8 L (3.4-5.0) gm/dl Globulin 4.4 H (2.5-4.0) gm/dl Albumin/Globulin Ratio 0.6 L (0.9-2) Influ A Molecular Assay Negative (Negative) Influ B Molecular Assay Negative (Negative) 04/09/21 Range/Units 20:15 WBC (4.8-10.8) K/uL RBC (4.7-6.1) M/uL Hgb (14.0-18.0) g/dL Hct (42-52) % MCV (80-100) fL MCH (25-34) pg MCHC (32-36) g/dL RDW Std Deviation (36.4-46.3) fL RDW Coeff of Will (11.5-14.5) % Plt Count (130-400) K/uL MPV (7.4-10.4) fL Immature Gran % (Auto) % Neut % (Auto) % Lymph % (Auto) % Hodgeman % (Auto) % Eos % (Auto) % Baso % (Auto) % Neut # (Auto) (1.4-6.5) K/uL Lymph # (Auto) (1.2-3.4) K/uL Hodgeman # (Auto) (0.11-0.59) K/uL Eos # (Auto) (0-0.5) K/uL Baso # (Auto) (0-0.2) K/uL Immature Gran # (Auto) (0.00-0.02) K/uL Sodium (136-145) mmol/L Potassium (3.5-5.1) mmol/L Chloride (98-107) mmol/L Carbon Dioxide (21-32) mmol/L Anion Gap (3-11) BUN (7-18) mg/dl Creatinine (0.6-1.4) mg/dl Est Cr Clr Drug Dosing ml/min Est GFR ( Amer) ml/min Est GFR (Non-Af Amer) ml/min BUN/Creatinine Ratio (10-20) Glucose (70-99) mg/dl Lactate 1.0 (0.4-2.0) mmol/L Calcium (8.5-10.1) mg/dl Total Bilirubin (0.2-1) mg/dl AST (15-37) U/L ALT (12-78) U/L Alkaline Phosphatase (45-117) U/L Troponin I (0-0.045) ng/ml Total Protein (6.4-8.2) gm/dl Albumin (3.4-5.0) gm/dl Globulin (2.5-4.0) gm/dl Albumin/Globulin Ratio (0.9-2) Influ A Molecular Assay (Negative) Influ B Molecular Assay (Negative) Administered Medications Discontinued Medications Acetaminophen (Acetaminophen 500 Mg Tab) 1,000 mg PO NOW STA Stop: 04/09/21 20:09 Last Admin: 04/09/21 20:19 Dose: 1,000 mg Documented by: [id number] Dexamethasone Sodium Phosphate (DexamethasonePf 10 Mg/Ml Vial) 6 mg IV NOW ONE Stop: 04/09/21 21:46 Last Admin: 04/09/21 22:17 Dose: 6 mg Documented by: [id number] Sodium Chloride (Nss 1000ml) 2,000 mls @ 999 mls/hr IV .Q2H1M ONE Stop: 04/09/21 22:08 Last Admin: 04/09/21 20:19 Dose: 999 mls/hr Documented by: [id number] Ioversol (Optiray 320 125ml) 120 ml IV ONCE ONE Stop: 04/09/21 22:26 Last Admin: 04/09/21 22:25 Dose: 120 ml Documented by: [id number] Imaging Data Radiologist's Impression: Chest X-Ray 04/09/21 17:17 XR chest 2V PA/lateral CLINICAL HISTORY: Resp sx c/w COVID-19. Difficulty breathing COMPARISON STUDY: 01/15/2020 TECHNIQUE: 2 views of the chest FINDINGS: Frontal and lateral radiographs of the chest demonstrate the cardiomediastinal silhouette to be within normal limits. Mild patchy interstitial and alveolar opacities are present bilaterally. The findings are most characteristic of a viral type pneumonitis. Covid 19 pneumonia should be excluded. There is no evidence for effusion bilaterally. There is no evidence for vascular congestion. There is no acute osseous pathology. IMPRESSION: Mild patchy interstitial and alveolar opacities bilaterally characteristic of a viral type pneumonitis and probable early Covid 19 pneumonia. ACT 112: Negative or not required by law. Electronically signed by: Marcelino Reynolds M.D. 04/09/2021 5:40 PM Chest CTA 04/09/21 20:08 CT angio chest PE protocol CLINICAL HISTORY: Cough, shortness of breath and chest tightness. Evaluate for pulmonary embolus. COMPARISON STUDY: 02/14/2021 and portable chest from 04/09/2021 CT DOSE: 377.66 mGy.cm TECHNIQUE: CT Angio of the chest was performed.followed by image post processing with coronal, and sagittal MIP reformats. Contrast Volume: Optiray 320, 120 ml FINDINGS: Vasculature: There is homogeneous perfusion of the pulmonary vasculature bilaterally. No intraluminal filling defects or evidence for pulmonary embolus is seen. Airway: The airway is clear. No endobronchial lesion is identified. Lungs: Compared to the previous examination, there is interval decrease in groundglass opacities previously identified throughout both lungs characteristic of a viral type pneumonitis and Covid 19 pneumonia. Mild residual interstitial and alveolar opacities are present. No new confluent alveolar opacities or air bronchograms are seen. There is minimal atelectasis at the lung bases. Pleura: There is no evidence for pleural effusion. There is no evidence for pneumothorax. Mediastinum: There is no evidence for pathologic adenopathy. The heart size is within normal limits. The thoracic aorta is within normal limits. There is no evidence for pericardial effusion. Upper abdomen:The adrenal glands are normal bilaterally. Osseous structures: There is no acute osseous pathology. Impression: 1. No CTA evidence for pulmonary embolus. 2. Compared to the previous examination, there is interval decrease in groundglass opacities identified bilaterally with mild residual interstitial and alveolar opacities now present. 3. No new confluent alveolar opacities or air bronchograms are seen. 4. The findings are most characteristic of resolving Covid pneumonia. ACT 112: Negative or not required by law. Electronically signed by: Marcelino Reynolds M.D. 04/09/2021 10:37 PM Discharge Plan Visit Data Chief Complaint: Shortness of Breath/Dyspnea Stated Complaint: WEAKNESS, SOB, PULSE OX 88 ED Provider: Bunny Hopkins Discharge Problem: Pneumonia due to COVID-19 virus, Tachycardia, Hypoxia Forms Stand Alone Forms: My [facility] Prescriptions Prescriptions: No Action montelukast [Singulair] 10 mg Tablet 10 mg PO HS RF: 0 albuterol sulfate [Proventil HFA] 90 mcg/actuation Hfa Aerosol Inhaler 2 inh INHALATION Q4 PRN (Reason: Shortness Of Breath Or Wheezing) RF: 0 prazosin [Minipress] 2 mg Capsule 2 mg PO BID RF: 0 prazosin 2 mg Capsule 4 mg PO HS RF: 0 Dulera 200-5 mcg/actuation HFA aerosol inhaler 2 puff INHALATION QAM RF: 0 melatonin 3 mg Tablet 6 mg PO HS Qty: 60 RF: 0 fluoxetine 40 mg capsule 40 mg PO HS RF: 0 buspirone 5 mg tablet 5 mg PO DAILY RF: 0 doxepin 50 mg capsule 50 mg PO DAILY RF: 0 baclofen 10 mg tablet 10 mg PO DAILY RF: 0 Referrals Referrals: Chuy Louie [Primary Care Provider] -
[2021-04-09 20:28] LABS: Basophils # (auto) 0.02 K/uL (0-0.2); Basophils % (auto) 0.2 %; Eosinophils # (auto) 0.01 K/uL (0-0.5); Eosinophils % (auto) 0.1 %; Hematocrit (blood only) 37.9 % (42-52); Hemoglobin 13.6 g/dL (14.0-18.0); Immature Granulocytes # (auto) 0.16 K/uL (0.00-0.02); Immature Granulocytes % (auto) 1.7 %; Lymphocytes # (auto) 1.59 K/uL (1.2-3.4); Lymphocytes % (auto) 16.8 %; Mean Corpuscular Hemoglobin 32.5 pg (25-34); Mean Corpuscular Hgb Conc 35.9 g/dL (32-36); Mean Corpuscular Volume 90.7 fL (80-100); Mean Platelet Volume 8.6 fL (7.4-10.4); Monocytes # (auto) 0.66 K/uL (0.11-0.59); Neutrophils # (auto) 7.01 K/uL (1.4-6.5); Neutrophils % (auto) 74.2 %; Platelet Count 413 K/uL (130-400); RDW Coefficient of Variation 12.9 % (11.5-14.5); RDW Standard Deviation 42.9 fL (36.4-46.3); Red Blood Count 4.18 M/uL (4.7-6.1); White Blood Count 9.45 K/uL (4.8-10.8)
[2021-04-09 20:47] LABS: Alanine Aminotransferase 34 U/L (12-78); Albumin Level 2.8 gm/dl (3.4-5.0); Aspartate Aminotransferase 15 U/L (15-37); BUN Creatinine Ratio 12.2 (10-20); Blood Urea Nitrogen 11 mg/dl (7-18); Calcium 9.2 mg/dl (8.5-10.1); Carbon Dioxide 24 mmol/L (21-32); Chloride 104 mmol/L (98-107); Creatinine Clr Calc Pharmacy 109.8 ml/min; Est GFR (African American) 123.4 ml/min; Est GFR (Non-African American) 106.5 ml/min; Glucose 107 mg/dl (70-99); Potassium 3.5 mmol/L (3.5-5.1); Sodium 139 mmol/L (136-145)
[2021-04-09 20:52] LABS: Albumin Globulin Ratio 0.6 (0.9-2); Alkaline Phosphatase 104 U/L (45-117); Bilirubin,Total 0.4 mg/dl (0.2-1); Globulin 4.4 gm/dl (2.5-4.0); Total Protein 7.2 gm/dl (6.4-8.2); Troponin I < 0.015 ng/ml (0-0.045)
[2021-04-09] MEDS ORDERED: dexAMETHasone**PF** 10 MG/ML VIAL IV ONE (21:45)
[2021-04-09] MEDS ORDERED: OPTIRAY 320 125ml IV ONE (22:25)
--- NOTE | 2021-04-09 22:38 | CT Scan Report ---
CT angio chest PE protocol CLINICAL HISTORY: Cough, shortness of breath and chest tightness. Evaluate for pulmonary embolus. COMPARISON STUDY: 02/14/2021 and portable chest from 04/09/2021 CT DOSE: 377.66 mGy.cm TECHNIQUE: CT Angio of the chest was performed.followed by image post processing with coronal, and s agittal MIP reformats. Contrast Volume: Optiray 320, 120 ml FINDINGS: Vasculature: There is homogeneous perfusion of the pulmonary vasculature bilaterally. No intraluminal filling defects or evidence for pulmonary embolus is seen. Airway: The airway is clear. No endobronchial lesion is identified. Lungs: Compared to the previous examination, there is interval decrease in groundglass opacities prev iously identified throughout both lungs characteristic of a viral type pneumonitis and Covid 19 pneum onia. Mild residual interstitial and alveolar opacities are present. No new confluent alveolar opacit ies or air bronchograms are seen. There is minimal atelectasis at the lung bases. Pleura: There is no evidence for pleural effusion. There is no evidence for pneumothorax. Mediastinum: There is no evidence for pathologic adenopathy. The heart size is within normal limits. The thoracic aorta is within normal limits. There is no evidence for pericardial effusion. Upper abdomen:The adrenal glands are normal bilaterally. Osseous structures: There is no acute osseous pathology. Impression: 1. No CTA evidence for pulmonary embolus. 2. Compared to the previous examination, there is interval decrease in groundglass opacities identifi ed bilaterally with mild residual interstitial and alveolar opacities now present. 3. No new confluent alveolar opacities or air bronchograms are seen. 4. The findings are most characteristic of resolving Covid pneumonia. ACT 112: Negative or not required by law. Electronically signed by: Marcelino Reynolds M.D. 04/09/2021 10:37 PM
--- NOTE | 2021-04-09 23:28 | History & Physical Report ---
Date of Service April 09, 2021 Assessment & Plan (1) Pneumonia due to COVID-19 virus: Plan: Pneumonia due to COVID-19 virus/outpatient hypoxia reported- Dexamethasone 6 mg IV every morning Xopenex/atropine every 6 hours while awake, and every 2 hours as needed Guaifenesin extended release 12 mg p.o. twice daily (2) Hypoxia: Plan: Reports oxygenation of 88% on room air at home, with in the ED minimum noted as 95% (3) Tachycardia: Plan: Heart rate ranging from 100-115 while in the ED. Multifactorial: Anxiety with PTSD, physiologic stress from COVID-19, secondary to prazosin (4) Depression: Plan: Depression/PTSD- Continue baclofen, buspirone, doxepin, fluoxetine, melatonin and prazosin (5) PTSD (post-traumatic stress disorder): Plan: See above History of Present Illness Chief Complaint: The patient presents to the emergency department with worsening shortness of breath, dyspnea exertion, myalgias, arthralgias, generalized fatigue and shakes that initially began about 10 days ago Primary Care Provider: Chuy Louie The patient is a 40-year-old male with a past medical history including seizure- like activity, serotonin syndrome, depression, nephrolithiasis, PTSD, bimalleolar ankle fracture, right ureteral calculus with right hydronephrosis, and multiple rib fractures. He reports a number of sick work exposures, and 10 days of worsening symptoms as noted above. The lowest pulse ox on room air was 95% in the ED, but reports pulse ox in the outpatient setting at 88%. Chest x-ray/CT angio PE protocol: Negative for PE. Compared to the previous examination, there is an interval decrease in groundglass opacity identified bilaterally with mild residual interstitial and alveolar opacities now present. Findings are most characteristic of resolving COVID-19 pneumonia. COVID-19 test was positive in ED this evening, influenza A and B testing was negative Allergies Allergy/AdvReac Type Severity Reaction Status Date / Time animal dander Allergy Severe ASTHMA Verified 04/09/21 21:34 mold Allergy Severe ASTHMA Verified 04/09/21 21:34 pollen extracts Allergy Severe ASTHMA Verified 04/09/21 21:34 No Known Drug Allergies Allergy Unknown . Verified 04/09/21 21:34 Home Medications Medication Instructions Recorded Confirmed Type albuterol sulfate 90 mcg/actuation 2 inh INHALATION Q4 PRN 04/03/20 11/22/21 History aerosol inhaler (Proventil HFA) montelukast 10 mg tablet 10 mg PO HS 08/20/19 04/09/21 History (Singulair) prazosin 2 mg capsule (Minipress) 2 mg PO BID 08/20/19 04/09/21 History prazosin 2 mg capsule 4 mg PO HS 08/23/19 04/09/21 History mometasone-formoterol HFA 200 2 puff INHALATION QAM 11/15/19 04/09/21 History mcg-5 mcg/actuation aerosol inhaler (Dulera) melatonin 3 mg tablet 6 mg PO HS #60 tab 11/16/19 04/09/21 Rx baclofen 10 mg tablet 10 mg PO DAILY 04/09/21 04/09/21 History buspirone 5 mg tablet 5 mg PO DAILY 04/09/21 04/09/21 History doxepin 50 mg capsule 50 mg PO DAILY 04/09/21 04/09/21 History fluoxetine 40 mg capsule 40 mg PO HS 04/09/21 04/09/21 History Past Med/Surg History Medical History (Updated 04/09/21 @ 20:17 by Bunny Hopkins MD) Anxiety R/T PTSD Asthma USES RESCUE INHALER 2 X A WEEK. CURRENTLY CONTROLLED, PER PATIENT. PATIENT STATES THEY HAVE HAD TO USE HIS INHALER OR INCREASE HIS OXYGEN NEED IN PACU IN THE PAST. INSTRUCTED HIM TO BRING INHALER DOS. Depression R/T PTSD GERD (gastroesophageal reflux disease) OCCASIONALLY - CONTROLLED Kidney stones S/P LITHOTRIPSY AND SUBSEQUENT CYSTOSCOPY Osteoarthritis GENERALIZED Post traumatic stress disorder Surgical History H/O shoulder surgery PINS PLACED IN RIGHT SHOULDER History of cystoscopy History of lithotripsy History of surgery on arm NAIL REMOVED FROM ARM Hx of tonsillectomy PONV (postoperative nausea and vomiting) X1 WITH SURGERY FROM NAIL REMOVED FROM ARM Social History Smoking Status: Never smoker Second Hand Exposure: No; Hx Alcohol Use: No Hx Substance Use: No Preferred Language: Syrian Communication Ability: Effective Visual Impairment: No Limitations Placing Judge Required: No Beliefs That Will Affect Care: None Current Living Situation: Family Other Information That Helps Us Care for You: No Feels Safe at Home: Yes Safety Concerns: Feels Safe At This Time Assistive Devices: None Review of Systems Review of Systems: The patient denies chest pain, palpitations, cough, lower extremity swelling, sore throat, fevers, chills, sweats, nausea, vomiting, diarrhea , constipation, abdominal pain, pelvic pain, blood in urine or stool, dysuria, urinary frequency or urgency, lightheadedness, dizziness, headache, memory loss, loss of consciousness, rash, abnormal bruising or bleeding, imbalance, focal weakness, numbness or tingling in arms or legs, back or neck pain, or night sweats. The review of systems is otherwise negative other than for that already noted above, and at least 10 systems have been reviewed. Physical Exam Physical Exam: The patient is awake, alert and oriented 3, well developed and well nourished, normocephalic and atraumatic, lying in bed and in no acute distress. HEENT--PERRL, EOMI, mucous membranes and oropharynx Normal. Neck--supple. No JVD. No bruits. Thyroid normal, trachea midline, no adenopathy. Heart--normal S1 and S2. No murmurs, rubs or gallops. Lungs--few coarse breath sounds bilaterally. No respiratory distress, no accessory muscle use. Abdomen--normal bowel sounds and soft. Nontender. Nondistended, no hernias or masses, no organomegaly. Extremities--no cyanosis or clubbing. No edema. Dermatologic--normal skin turgor, normal color, no abnormal lymph nodes, no rash. Neurologic--cranial nerves II through XII grossly intact. Rheumatologic--normal range of motion. Psychiatric--normal affect. Results & Data Results & Data ([facility]) Vital Signs (Past 12 Hours) Vital Signs Temp Pulse Resp BP Pulse Ox 04/09/21 20:35 128 H 20 94 04/09/21 17:14 98.1 F 142 H 18 147/87 H 96 Laboratory Results Laboratory Results WBC 9.45 K/uL (4.8-10.8) 04/09/21 20:15 RBC 4.18 M/uL (4.7-6.1) L 04/09/21 20:15 Hgb 13.6 g/dL (14.0-18.0) L 04/09/21 20:15 Hct 37.9 % (42-52) L 04/09/21 20:15 MCV 90.7 fL (80-100) 04/09/21 20:15 MCH 32.5 pg (25-34) 04/09/21 20:15 MCHC 35.9 g/dL (32-36) 04/09/21 20:15 RDW Std Deviation 42.9 fL (36.4-46.3) 04/09/21 20:15 RDW Coeff of Will 12.9 % (11.5-14.5) 04/09/21 20:15 Plt Count 413 K/uL (130-400) H 04/09/21 20:15 MPV 8.6 fL (7.4-10.4) 04/09/21 20:15 Immature Gran % (Auto) 1.7 % 04/09/21 20:15 Neut % (Auto) 74.2 % 04/09/21 20:15 Lymph % (Auto) 16.8 % 04/09/21 20:15 [place] % (Auto) 7.0 % 04/09/21 20:15 Eos % (Auto) 0.1 % 04/09/21 20:15 Baso % (Auto) 0.2 % 04/09/21 20:15 Neut # (Auto) 7.01 K/uL (1.4-6.5) H 04/09/21 20:15 Lymph # (Auto) 1.59 K/uL (1.2-3.4) 04/09/21 20:15 [place] # (Auto) 0.66 K/uL (0.11-0.59) H 04/09/21 20:15 Eos # (Auto) 0.01 K/uL (0-0.5) 04/09/21 20:15 Baso # (Auto) 0.02 K/uL (0-0.2) 04/09/21 20:15 Immature Gran # (Auto) 0.16 K/uL (0.00-0.02) H 04/09/21 20:15 Sodium 139 mmol/L (136-145) 04/09/21 20:15 Potassium 3.5 mmol/L (3.5-5.1) 04/09/21 20:15 Chloride 104 mmol/L (98-107) 04/09/21 20:15 Carbon Dioxide 24 mmol/L (21-32) 04/09/21 20:15 Anion Gap 11.0 (3-11) 04/09/21 20:15 BUN 11 mg/dl (7-18) 04/09/21 20:15 Creatinine 0.87 mg/dl (0.6-1.4) 04/09/21 20:15 Est Cr Clr Drug Dosing 109.8 ml/min 04/09/21 20:15 Est GFR ( Amer) 123.4 ml/min 04/09/21 20:15 Est GFR (Non-Af Amer) 106.5 ml/min 04/09/21 20:15 BUN/Creatinine Ratio 12.2 (10-20) 04/09/21 20:15 Glucose 107 mg/dl (70-99) H 04/09/21 20:15 Lactate 1.0 mmol/L (0.4-2.0) 04/09/21 20:15 Calcium 9.2 mg/dl (8.5-10.1) 04/09/21 20:15 Total Bilirubin 0.4 mg/dl (0.2-1) 04/09/21 20:15 AST 15 U/L (15-37) 04/09/21 20:15 ALT 34 U/L (12-78) 04/09/21 20:15 Alkaline Phosphatase 104 U/L (45-117) 04/09/21 20:15 Troponin I < 0.015 ng/ml (0-0.045) 04/09/21 20:15 Total Protein 7.2 gm/dl (6.4-8.2) 04/09/21 20:15 Albumin 2.8 gm/dl (3.4-5.0) L 04/09/21 20:15 Globulin 4.4 gm/dl (2.5-4.0) H 04/09/21 20:15 Albumin/Globulin Ratio 0.6 (0.9-2) L 04/09/21 20:15 Influ A Molecular Assay Negative (Negative) 04/09/21 17:17 Influ B Molecular Assay Negative (Negative) 04/09/21 17:17 SARS-CoV-2 RNA (JENNIFER) POSITIVE (Negative) A* 04/09/21 17:17 Impressions Chest X-Ray 04/09/21 17:17 XR chest 2V PA/lateral CLINICAL HISTORY: Resp sx c/w COVID-19. Difficulty breathing COMPARISON STUDY: 01/15/2020 TECHNIQUE: 2 views of the chest FINDINGS: Frontal and lateral radiographs of the chest demonstrate the cardiomediastinal silhouette to be within normal limits. Mild patchy interstitial and alveolar opacities are present bilaterally. The findings are most characteristic of a viral type pneumonitis. Covid 19 pneumonia should be excluded. There is no evidence for effusion bilaterally. There is no evidence for vascular congestion. There is no acute osseous pathology. IMPRESSION: Mild patchy interstitial and alveolar opacities bilaterally characteristic of a viral type pneumonitis and probable early Covid 19 pneumonia. ACT 112: Negative or not required by law. Electronically signed by: Marcelino Reynolds M.D. 04/09/2021 5:40 PM Chest CTA 04/09/21 20:08 CT angio chest PE protocol CLINICAL HISTORY: Cough, shortness of breath and chest tightness. Evaluate for pulmonary embolus. COMPARISON STUDY: 02/14/2021 and portable chest from 04/09/2021 CT DOSE: 377.66 mGy.cm TECHNIQUE: CT Angio of the chest was performed.followed by image post processing with coronal, and sagittal MIP reformats. Contrast Volume: Optiray 320, 120 ml FINDINGS: Vasculature: There is homogeneous perfusion of the pulmonary vasculature bilaterally. No intraluminal filling defects or evidence for pulmonary embolus is seen. Airway: The airway is clear. No endobronchial lesion is identified. Lungs: Compared to the previous examination, there is interval decrease in groundglass opacities previously identified throughout both lungs characteristic of a viral type pneumonitis and Covid 19 pneumonia. Mild residual interstitial and alveolar opacities are present. No new confluent alveolar opacities or air bronchograms are seen. There is minimal atelectasis at the lung bases. Pleura: There is no evidence for pleural effusion. There is no evidence for pneumothorax. Mediastinum: There is no evidence for pathologic adenopathy. The heart size is within normal limits. The thoracic aorta is within normal limits. There is no evidence for pericardial effusion. Upper abdomen:The adrenal glands are normal bilaterally. Osseous structures: There is no acute osseous pathology. Impression: 1. No CTA evidence for pulmonary embolus. 2. Compared to the previous examination, there is interval decrease in groundglass opacities identified bilaterally with mild residual interstitial and alveolar opacities now present. 3. No new confluent alveolar opacities or air bronchograms are seen. 4. The findings are most characteristic of resolving Covid pneumonia. ACT 112: Negative or not required by law. Electronically signed by: Marcelino Reynolds M.D. 04/09/2021 10:37 PM Code Status & VTE Plan Code Status Full code VTE Prophylaxis Plan VTE Prophylaxis will be ordered: Yes PG Care Time/CCT Total # of Minutes Spent Total Time Spent with Patient: Total time spent is greater than 50% in coordination of care (as documented) at patient's floor/unit and/or counseling patient: Coding Level of Care Code 94463 Initial Inpt Care Lvl 3 Diagnoses Pneumonia due to COVID-19 virus U07.1; J12.82 Tachycardia R00.0 Depression F32.9 PTSD (post-traumatic stress disorder) F43.10 Hypoxia R09.02
[2021-04-10] MEDS ORDERED: ACETAMINOPHEN 325 MG TAB PO PRN (02:28)
[2021-04-10] MEDS ORDERED: ONDANSETRON INJ 2 MG/ML 2 ML VIAL IV PRN (02:28)
[2021-04-10] MEDS ORDERED: XOPENEX/ATROVENT 1.25mg/0.5MG NEB COMBO NEB SCH (02:28)
[2021-04-10] MEDS: LEVALBUTEROL 1.25MG/0.5ML NEB INH SCH ×3 (03:53→12:42)
[2021-04-10] MEDS: IPRATROPIUM BROMIDE NEB SOLN 0.02% 2.5 ML VIAL INH SCH ×3 (03:53→12:42)
[2021-04-10] MEDS: PRAZOSIN HCL 1 MG CAP PO SCH ×3 (04:58→12:06)
[2021-04-10] MEDS: FLUTICASONE/VILANTEROL 200/25MCG 14 PUFFS/INHALER INH SCH (08:06)
[2021-04-10] MEDS: ENOXAPARIN INJ 40 MG/0.4 ML SYR SQ SCH (08:06)
[2021-04-10] MEDS: guaiFENesin 600 MG TABCR PO SCH ×2 (08:06→20:20)
[2021-04-10] MEDS: busPIRone 5 MG TAB PO SCH (08:07)
[2021-04-10] MEDS: BACLOFEN 10 MG TAB PO SCH (08:07)
[2021-04-10] MEDS: DOXEPIN HCL 50 MG CAPSULE PO SCH (08:07)
[2021-04-10] MEDS ORDERED: AZITHROMYCIN 500 MG in DEXTROSE 5% 250 ML IV SCH (09:00)
[2021-04-10] MEDS ORDERED: dexAMETHasone 6 MG in SYRINGE 0 ML IV SCH (09:00)
--- NOTE | 2021-04-10 10:43 | Hospitalist Progress Note ---
Date of Service April 10, 2021 Assessment & Plan (1) Pneumonia due to COVID-19 virus: Plan: Pneumonia due to COVID-19 virus. Outpatient hypoxia reported, but in the hospital O2 sat has remained 95% on room air. - Dexamethasone 6 mg PO daily x 10 days. - Xopenex/atropine every 6 hours while awake, and every 2 hours as needed - Guaifenesin extended release 12 mg p.o. twice daily (2) Tachycardia: Plan: Heart rate ranging from 100-115 while in the ED. Up to 130 at times here. All sinus rhythm. Multifactorial: Anxiety with PTSD, physiologic stress from COVID- 19, secondary to prazosin. - Will get TSH/FT4 - Will get utox. He gets frequent benzodiazepines from [facility] per the PDMP. I do wonder if he is having some element of withdrawal as he is also tremulous. - Monitor (3) Hypoxia: Plan: Reports oxygenation of 88% on room air at home, with in the ED minimum noted as 95%. - Monitor (4) Depression: Plan: Depression/PTSD. No SI/HI for me. - Continue baclofen, buspirone, doxepin, fluoxetine, melatonin, and prazosin (5) PTSD (post-traumatic stress disorder): Plan: See above (6) DVT prophylaxis: Plan: Lovenox 40 mg SQ daily Admission and Anticipated Discharge Date Admission Date: April 09, 2021 Subjective Still feels very shaky and weak. Reports no fevers/chills, chest pain, shortness of breath, abdominal pain, nausea, or vomiting. Physical Exam Constitutional: WD/WN, vitals as above Eyes: EOM intact bilaterally; no conjunctival abnormality ENMT: external ear and nose normal, oropharynx normal Neck: trachea midline, no thyromegaly normal visual inspection Respiratory: normal respiratory effort, lungs clear to auscultation no respiratory distress Cardiovascular: RRR, no murmur, no edema Gastrointestinal (Abdomen): Inspection/Auscultation: abdomen normal to inspection; abdomen not distended Musculoskeletal: no cyanosis or clubbing, extremities motor strength 5/5 Skin: no rashes, warm and dry Neurologic: moves all extremities and awake Psychiatric: Orientation: alert, oriented to person and cooperative Results & Data Results & Data ([facility]) Vital Signs (Past 12 Hours) Vital Signs Temp Pulse Pulse Resp BP BP Pulse Ox 11/23/21 07:49 127 H 18 95 04/10/21 07:19 100 H 04/10/21 06:27 36.7 C 120 H 22 163/98 H 98 04/10/21 04:58 186/89 H 04/10/21 03:04 113 H 04/10/21 02:28 36.9 C 111 H 20 177/104 H 95 04/10/21 02:26 36.9 C 111 H 20 177/104 H 95 04/10/21 01:00 111 H 20 157/118 H 96 04/10/21 00:30 114 H 22 95 04/10/21 00:00 99 H 20 184/117 H 96 04/09/21 23:30 94 H 19 95 04/09/21 23:00 95 H 16 164/112 H 96 PG Care Time/CCT Total # of Minutes Spent Total Time Spent with Patient: Total time spent is greater than 50% in coordination of care (as documented) at patient's floor/unit and/or counseling patient: Coding Level of Care Code 94676 Subseq Hosp Care Lvl 3 Diagnoses Pneumonia due to COVID-19 virus U07.1; J12.82 Hypoxia R09.02 Tachycardia R00.0 Depression F32.9 PTSD (post-traumatic stress disorder) F43.10 DVT prophylaxis Z29.9
[2021-04-10 12:19] LABS: Appearance Urine Clear (Clear); Bilirubin Urine Negative (Negative); Blood Urine Negative (Negative); Color Urine Yellow; Glucose Urine UA Negative (Negative); Ketones Urine Negative (Negative); Leukocyte Esterase Urine Negative (Negative); Nitrite Urine Negative (Negative); Protein Urine Negative (Negative); Urobilinogen Urine Negative (Negative)
[2021-04-10 12:39] LABS: Amphetamines+Metham, Urine Neg (Neg); Barbiturates, Urine Neg (Neg); Benzodiazepine, Urine Neg (Neg); Cocaine, Urine Neg (Neg); MDMA (Ecstacy), Urine Neg (Neg); Methadone, Urine Neg (Neg); Opiate, Urine Neg (Neg); Phencyclidine, Urine Neg (Neg)
[2021-04-10] MEDS ORDERED: LEVALBUTEROL 1.25MG/0.5ML NEB INH PRN (14:44)
[2021-04-10] MEDS ORDERED: IPRATROPIUM BROMIDE NEB SOLN 0.02% 2.5 ML VIAL INH PRN (14:44)
[2021-04-10] MEDS ORDERED: PRAZOSIN HCL 1 MG CAP PO SCH (21:00)
[2021-04-10] MEDS ORDERED: FLUoxetine HCL 20 MG CAP PO SCH (21:00)
[2021-04-10] MEDS ORDERED: MELATONIN 3 MG TAB PO SCH (21:00)
[2021-04-10] MEDS ORDERED: MONTELUKAST SODIUM 10 MG TABLET PO SCH (21:00)
[2021-04-11 05:51] LABS: Basophils # (auto) 0.02 K/uL (0-0.2); Basophils % (auto) 0.1 %; Eosinophils # (auto) 0.01 K/uL (0-0.5); Eosinophils % (auto) 0.1 %; Hematocrit (blood only) 38.7 % (42-52); Hemoglobin 13.3 g/dL (14.0-18.0); Immature Granulocytes # (auto) 0.25 K/uL (0.00-0.02); Immature Granulocytes % (auto) 1.5 %; Lymphocytes # (auto) 1.98 K/uL (1.2-3.4); Lymphocytes % (auto) 11.9 %; Mean Corpuscular Hemoglobin 31.5 pg (25-34); Mean Corpuscular Hgb Conc 34.4 g/dL (32-36); Mean Corpuscular Volume 91.7 fL (80-100); Mean Platelet Volume 8.6 fL (7.4-10.4); Monocytes # (auto) 0.99 K/uL (0.11-0.59); Monocytes % (auto) 5.9 %; Neutrophils % (auto) 80.5 %; Platelet Count 493 K/uL (130-400); RDW Coefficient of Variation 12.8 % (11.5-14.5); RDW Standard Deviation 42.9 fL (36.4-46.3); Red Blood Count 4.22 M/uL (4.7-6.1); White Blood Count 16.65 K/uL (4.8-10.8)
[2021-04-11 06:43] LABS: Albumin Level 2.5 gm/dl (3.4-5.0); BUN Creatinine Ratio 22.6 (10-20); Calcium 9.6 mg/dl (8.5-10.1); Creatinine Clr Calc Pharmacy 96.3 ml/min; Est GFR (African American) 107.1 ml/min; Est GFR (Non-African American) 92.4 ml/min; Potassium 4.1 mmol/L (3.5-5.1)
--- NOTE | 2021-04-11 06:53 | Electrocardiogram Report ---
Test Reason : Blood Pressure : / mmHG Vent. Rate : 124 BPM Atrial Rate : 124 BPM P-R Int : 126 ms QRS Dur : 082 ms QT Int : 314 ms P-R-T Axes : 067 045 048 degrees QTc Int : 451 ms Poor data quality, interpretation may be adversely affected Sinus tachycardia Otherwise normal ECG When compared with ECG of 15-NOV-2019 00:38, No significant change was found Confirmed by Asaf Bernard ([id number]) on 04/11/2021 6:52:30 AM Referred By: Chuy Louie Confirmed By:Asaf Bernard
[2021-04-11 07:00] LABS: Albumin Globulin Ratio 0.6 (0.9-2); Bilirubin,Total 0.4 mg/dl (0.2-1); Globulin 4.4 gm/dl (2.5-4.0); T4 Free Thyroxine 1.24 ng/dl (0.8-1.6); Total Protein 6.9 gm/dl (6.4-8.2)
[2021-04-11] MEDS: FLUTICASONE/VILANTEROL 200/25MCG 14 PUFFS/INHALER INH SCH (08:01)
[2021-04-11] MEDS: guaiFENesin 600 MG TABCR PO SCH (08:01)
[2021-04-11] MEDS: DOXEPIN HCL 50 MG CAPSULE PO SCH (08:01)
[2021-04-11] MEDS: PRAZOSIN HCL 1 MG CAP PO SCH ×2 (08:02→12:04)
[2021-04-11] MEDS: BACLOFEN 10 MG TAB PO SCH (08:02)
[2021-04-11] MEDS: busPIRone 5 MG TAB PO SCH (08:03)
[2021-04-11] MEDS: ENOXAPARIN INJ 40 MG/0.4 ML SYR SQ SCH (08:03)
[2021-04-11] MEDS ORDERED: dexAMETHasone 4 MG TAB PO SCH (09:00)
--- NOTE | 2021-04-11 16:47 | Discharge Summary ---
Date of Service April 11, 2021 Admission HPI Per Admitting Provider The patient is a 40-year-old male with a past medical history including seizure- like activity, serotonin syndrome, depression, nephrolithiasis, PTSD, bimalleolar ankle fracture, right ureteral calculus with right hydronephrosis, and multiple rib fractures. He reports a number of sick work exposures, and 10 days of worsening symptoms as noted above. The lowest pulse ox on room air was 95% in the ED, but reports pulse ox in the outpatient setting at 88%. Chest x-ray/CT angio PE protocol: Negative for PE. Compared to the previous examination, there is an interval decrease in groundglass opacity identified bilaterally with mild residual interstitial and alveolar opacities now present. Findings are most characteristic of resolving COVID-19 pneumonia. COVID-19 test was positive in ED this evening, influenza A and B testing was negative Principal Diagnosis Covid-19 pneumonia Discharge Exam Constitutional WD/WN, vitals as above Eyes EOM intact bilaterally; no conjunctival abnormality ENMT external ear and nose normal, oropharynx normal Neck trachea midline, no thyromegaly normal visual inspection Respiratory normal respiratory effort, lungs clear to auscultation no respiratory distress Cardiovascular RRR, no murmur, no edema Gastrointestinal (Abdomen) Inspection/Auscultation: abdomen normal to inspection; abdomen not distended Musculoskeletal no cyanosis or clubbing, extremities motor strength 5/5 Skin no rashes, warm and dry Neurologic moves all extremities and awake Psychiatric Orientation: alert, oriented to person and cooperative Discharge Data Allergies Allergy/AdvReac Type Severity Reaction Status Date / Time animal dander Allergy Severe ASTHMA Verified 04/09/21 21:34 mold Allergy Severe ASTHMA Verified 04/09/21 21:34 pollen extracts Allergy Severe ASTHMA Verified 04/09/21 21:34 No Known Drug Allergies Allergy Unknown . Verified 04/09/21 21:34 Consultations 04/09/21 22:10 ED Decision to Admit Stat Ordered Studies 04/09/21 20:08 CT angio chest PE protocol Stat Hospital Course (1) Pneumonia due to COVID-19 virus: Pneumonia due to COVID-19 virus. Outpatient hypoxia reported, but in the hospital O2 sat has remained 95% on room air. - Dexamethasone 6 mg PO daily x 10 days. -> Discharge with remainder of script. - Xopenex/atropine every 6 hours while awake, and every 2 hours as needed - Guaifenesin extended release 12 mg p.o. twice daily (2) Tachycardia: Heart rate ranging from 100-115 while in the ED. Up to 130 at times here. All sinus rhythm. Multifactorial: Anxiety with PTSD, physiologic stress from COVID-19, secondary to prazosin. - TSH/FT4 were both normal. - Utox was negative. - Monitor -> HR was coming down by discharge. While sleeping, he was down to the 80s. While up and awake, he was still up to 110-120, but improving. (3) Hypoxia: Reports oxygenation of 88% on room air at home, with in the ED minimum noted as 95%. - Monitor (4) Depression: Depression/PTSD. No SI/HI for me. - Continue baclofen, buspirone, doxepin, fluoxetine, melatonin, and prazosin - He had plans to speak with his psychiatric provider today. Will follow up with them. (5) PTSD (post-traumatic stress disorder): See above (6) DVT prophylaxis: Lovenox 40 mg SQ daily Total Time Total Time Spent Total Time Spent (In Minutes): 45 Discharge Plan Discharge Items Patient Disposition: Home - Self-Care Reason For Visit: HYPOXIA Discharge Diagnosis: Covid-19 pneumonia Activity: Resume your previous activity Non-emergency contact: Primary Care Provider Call non-emergency contact if: your symptoms worsen Follow-up/Referrals: Chuy Louie [Primary Care Provider] - 04/19/21 12:15 pm (This will be an E- Visit follow up.) Diet: Regular Addtl Attending Provider Instructions: You were admitted to the hospital with Covid-19. Luckily, you did not need any oxygen while you were here. We did a CT scan of your chest which did not show any blood clots or other concerns. With steroids and breathing treatments, you are improving. Please take your steroid for the next 8 days. Pending Studies at Discharge: No Stand-Alone Forms: My [employer], Smoking Cessation Medications and DC Order Prescriptions: New guaifenesin 600 mg tablet extended release 12hr 600 mg PO BID Qty: 14 RF: 0 dexamethasone 6 mg tablet 6 mg PO DAILY Qty: 8 RF: 0 Continued montelukast [Singulair] 10 mg Tablet 10 mg PO HS RF: 0 albuterol sulfate [Proventil HFA] 90 mcg/actuation Hfa Aerosol Inhaler 2 inh INHALATION Q4 PRN (Reason: Shortness Of Breath Or Wheezing) RF: 0 prazosin [Minipress] 2 mg Capsule 2 mg PO BID RF: 0 prazosin 2 mg Capsule 4 mg PO HS RF: 0 Dulera 200-5 mcg/actuation HFA aerosol inhaler 2 puff INHALATION QAM RF: 0 melatonin 3 mg Tablet 6 mg PO HS Qty: 60 RF: 0 fluoxetine 40 mg capsule 40 mg PO HS RF: 0 buspirone 5 mg tablet 5 mg PO DAILY RF: 0 doxepin 50 mg capsule 50 mg PO DAILY RF: 0 baclofen 10 mg tablet 10 mg PO DAILY RF: 0 Discharge Orders: Discharge Order (Routine); Ordered 04/11/21 Ordered By: John Lane Admission Data Admit Date/Time: 04/09/21 23:28 Attending Provider: John Lane Admit Provider: Braxton Collins Primary Care Provider: Chuy Louie Other Providers: John Lane Other Interventions: Discharge Summary Assessment (RN) Last Done: 04/11/21 13:05 Coding Level of Care Code D/C DAY MANAGEMENT >30 MINS Diagnoses Pneumonia due to COVID-19 virus U07.1; J12.82 Tachycardia R00.0 Hypoxia R09.02 Depression F32.9 PTSD (post-traumatic stress disorder) F43.10 DVT prophylaxis Z29.9
== END 2021-04-11 13:32 | disposition home or self-care (01) | DRG 177 ==
LOC: ED 17:11 → 2W 23:28 → SUATTDRO 23:28 → 2W 04-10 01:34